=== PATIENT | male | born 1960 | race American Indian/Alaskan Native ===

== ENCOUNTER → 2020-10-09 11:20 | Outpatient (BNVA) | payer MEDICARE, MEDICAID, SELFPAY | PROVIDERS: PCP Internal Medicine Geriatric Medicine; Visit Provider Orthopaedic Surgery | DX: M75.41 Impingement syndrome of right shoulder (principal) | CPT/HCPCS: 20610; 99202; J1100 ==

== ENCOUNTER 2020-12-25 15:35 | Emergency (ER) | payer MEDICARE, MEDICAID, SELFPAY ==
--- NOTE | ~2020-12-25 | XR_ITS ---
EXAMINATION: XR ANKLE, LEFT CLINICAL INFORMATION: Fall COMPARISON: 01/29/2019 TECHNIQUE: AP, lateral, and mortise views of the left ankle. FINDINGS: There is no fracture or dislocation. The ankle mortise is congruent. No ankle joint effusion. Degenerative changes are seen at the midfoot with small osteophytes present. Heel spurs are noted. The soft tissues are unremarkable. XR/XR ankle LT min 3V IMPRESSION: No fracture or malalignment. Mild degenerative changes. Heel spurs.
--- NOTE | ~2020-12-25 | CT_ITS ---
EXAMINATION: CT ABDOMEN AND PELVIS WITHOUT CONTRAST CLINICAL INFORMATION: Right lower abdominal pain after fall COMPARISON: CT abdomen pelvis 10/03/2016 TECHNIQUE: Multidetector volumetric imaging was performed from the superior aspect of the liver through the pubic symphysis. Sagittal and coronal reformatted images were obtained on the technologist's workstation. This CT examination was performed using dose optimization techniques as appropriate, variously including the following: *Automated exposure control *Adjustment of mA and/or kV according to patient size (this includes techniques or standardized protocols for targeted exams where dose is matched to indication/reason for exam; i.e. extremities or head) *Use of iterative reconstruction technique DLP: 966 mGy-cm FINDINGS: LUNG BASES: The visualized lung bases are unremarkable. LIVER, GALLBLADDER, AND BILIARY TREE: The liver is enlarged measuring 20 cm in cephalocaudad dimension and I suspect there is hepatic steatosis. No focal liver mass or bile duct dilatation is seen. Status post cholecystectomy. PANCREAS: Unremarkable. SPLEEN: Unremarkable. ADRENAL GLANDS: Unremarkable. KIDNEYS AND URETERS: The kidneys are normal in size, shape, and attenuation. No hydronephrosis, hydroureter, or calculi seen. No perinephric stranding. BLADDER: Unremarkable. GASTROINTESTINAL TRACT: Patient has undergone a gastric sleeve procedure. The small and large bowel are unremarkable. The appendix is unremarkable. ABDOMINAL WALL: No significant hernia is appreciated. A large coarse calcification is present just above the umbilicus in the subcutaneous tissues. There is been prior pelvic wall surgery seen with a midline mesh present. LYMPH NODES: No retroperitoneal lymphadenopathy. VASCULAR: There is calcific plaque present but no aneurysm. PELVIC VISCERA: Unremarkable. OSSEOUS STRUCTURES: Degenerative changes are present in the spine. No fracture is are seen. CT/CT abdomen pelvis wo con IMPRESSION: No evidence of traumatic injury after fall. A cause for the patient's right-sided lower abdominal pain has not been found. Incidental note made of enlarged fatty liver, prior gastric sleeve, prior lower abdominal wall hernia repair with mesh and other findings described above.
[2020-12-25 15:41] VITALS: BP 144/82; PULSE 74; RESP 18; TEMP 36.1; O2SAT 95; BMI 38.5
--- NOTE | 2020-12-25 17:36 | ED.ABDPAIN ---
HPI - Abdominal Pain General Chief Complaint: Abdominal Pain Stated Complaint: Abdomial pain Time Seen by Provider: 12/25/20 17:35 Source: patient Mode of arrival: ambulatory Limitations: no limitations History of Present Illness HPI narrative: Apparently patient slipped on ice 5 days ago and strained his lower abdomen which he complaining of pain since then no direct injury to the abdomen. Patient also has some pain in the left ankle after the fall but able to ambulate. No nausea no vomiting no head injury no loss of consciousness Related Data Home Medications Medication Instructions Recorded Confirmed buprenorphine 2 mg-naloxone 0.5 mg 1 film BUCCAL DAILY 10/09/20 10/09/20 sublingual film buprenorphine 8 mg-naloxone 2 mg 20 mg SUBLINGUAL DAILY 10/09/20 10/09/20 sublingual film bupropion HCl 150 mg tablet,12 hr 150 mg PO BID 10/09/20 10/09/20 sustained-release diclofenac sodium 1 % topical gel 2 g TOPICAL TID 10/09/20 10/09/20 gabapentin 600 mg tablet 600 mg PO BID 10/09/20 10/09/20 methylprednisolone 4 mg tablets in mg PO DIRECTED 10/09/20 10/09/20 a dose pack omeprazole 40 mg capsule,delayed 40 mg PO DAILY 10/09/20 10/09/20 release Allergies Allergy/AdvReac Type Severity Reaction Status Date / Time ibuprofen [From Motrin] Allergy Severe HIVES Verified 10/09/20 12:05 adhesive tape [Adhesive Tape] Allergy Intermediate SKIN Verified 10/09/20 12:05 BLISTERS Motrin Allergy Unknown hives Uncoded 10/09/20 12:05 tape Allergy Unknown rash Uncoded 10/09/20 12:05 Review of Systems Review of Systems Constitutional : No Weight loss, No Fever, No Chills ENT/Mouth : No sore throat, No Rhinorrhea Eyes: No Eye Pain, No Swelling Cardiovascular : No Chest Pain, no palpitations Respiratory : No Cough, No Sputum, no shortness of breath Gastrointestinal : no Nausea, No Vomiting, No Diarrhea, ++ abdominal Pain, no black stools Genitourinary : No Dysuria, No Urinary Frequency Musculoskeletal : No joint pain, No Myalgias, No Joint Swelling Skin : No Skin Lesions, No rash Neuro : No Weakness, No Numbness, No Dizziness, No Headache Psych : No Anxiety/Panic, No Depression Heme/Lymph: No Bruising, No Lymphadenopathy Endocrine : No Polyuria, No Polydipsia All other systems reviewed and are negative Physical Exam Vital Signs: Vital Signs: Last Vital Signs Temp 97.0 F 12/25/20 15:41 Pulse 74 12/25/20 15:41 Resp 18 12/25/20 15:41 BP 144/82 H 12/25/20 15:41 Pulse Ox 95 12/25/20 15:41 Body Mass Index 38.5 Const: General: comfortable and no acute distress Orientation/consciousness: oriented to time and patient oriented x3 HENMT: Head: Yes normocephalic and Yes atraumatic Eyes: General: appearance normal, both eyes and all related structures Neck: Neck: Yes normal visual inspection and Yes full ROM Chest: Chest palpation & inspection: normal inspection of the chest and normal palpation of entire chest wall Resp: Effort & Inspection: normal respiratory effort Auscultation: clear to auscultation bilaterally, no crackles, no rales and no rhonchi Cardio: Jugular venous distension: no JVD Palpation: normal PMI Rate: regular rate Rhythm: regular rhythm Heart sounds: S1 normal heart sound present and S2 normal heart sound present Peripheral pulses: Peripheral pulses 2+ throughout GI: Inspection: Yes normal to inspection Palpation (GI): Soft to palpation and Tenderness to palpation present (GI) in the RLQ (Abdominal wall tenderness no bruising no hernia); with no rebound tenderness Auscultation: normal bowel sounds Back/Spine/Pelvis: Thoracic/Lumbar Spine: thoracic and lumbar spine normal to inspection Neuro: General: oriented to time and patient oriented x3 Extrem: Ankle/foot/toe images: 1. Diffuse tenderness left ankle no significant soft tissue swelling no deformity neurovascular intact MDM - Abdominal Pain MDM Narrative Medical decision making narrative: Patient's CT scan abdomen negative for any hernia or hematoma or significant muscle tear pain likely from abdominal muscle strain Discharge Plan Discharge Clinical Impression: Strain of abdominal wall Patient Disposition: Home, Self-Care Instructions: Muscle Strain (ED) Additional Instructions: Rest to abdominal wall apply ice take ibuprofen/Tylenol for pain Prescriptions: No Action omeprazole 40 mg capsule,delayed release(DR/EC) 40 mg PO DAILY RF: 0 buprenorphine-naloxone [Suboxone] 2-0.5 mg film 1 film buccal DAILY RF: 0 bupropion HCl 150 mg tablet sustained-release 12 hr 150 mg PO BID RF: 0 gabapentin 600 mg tablet 600 mg PO BID RF: 0 diclofenac sodium 1 % gel 2 g topical TID RF: 0 methylprednisolone 4 mg tablets,dose pack PO DIRECTED RF: 0 buprenorphine-naloxone 8-2 mg film 20 mg sublingual DAILY RF: 0 Interventions: ED Discharge Assessment Last Done: 12/25/20 20:57 Discharge Date/Time: 12/25/20 19:00 [facility] Past Medical History Medical History GERD (gastroesophageal reflux disease) Surgical History History of Maddy-en-Y gastric bypass Family History Family History Father Cancer Diabetes Mother Diabetes Cancer Social History Social History Smoking Status: Light tobacco smoker Advance Directives: No Advance Directives Information Provided: Yes Current occupational status: unemployed Current occupation: right handed
== END 2020-12-25 19:00 | disposition home or self-care (01) ==
PROVIDERS: Emergency Provider Internal Medicine; PCP Internal Medicine Geriatric Medicine
DX: S39.011A Strain of muscle, fascia and tendon of abdomen, initial encounter (principal); M25.572 Pain in left ankle and joints of left foot; R10.30 Lower abdominal pain, unspecified; W00.0XXA Fall on same level due to ice and snow, initial encounter; Y93.01 Activity, walking, marching and hiking; Y92.9 Unspecified place or not applicable; Y99.9 Unspecified external cause status; Z79.899 Other long term (current) drug therapy; F17.200 Nicotine dependence, unspecified, uncomplicated; Z71.6 Tobacco abuse counseling
CPT/HCPCS: 73610; 74176; 99283; 99284

== ENCOUNTER 2021-01-01 09:36 | Outpatient (REF) | payer MEDICARE, MEDICAID, SELFPAY ==
--- NOTE | ~2021-01-01 | US_ITS ---
EXAMINATION: US SOFT TISSUE OF THE NECK CLINICAL INFORMATION: Anterior neck mass times one month, shotty lymph nodes right. COMPARISON: None TECHNIQUE: Linear transducer grayscale and color Doppler examination of the right neck and upper mid neck Ia. FINDINGS: Ultrasound of palpable concern in the midline anterior superior neck. No focal mass or lymph node is identified in this region. There is a 0.8 cm (transverse measurement) lymph node in the lateral right upper neck. No adenopathy otherwise identified in the right neck. US/US soft tiss head and/or neck IMPRESSION: No mass or lymphadenopathy in the midline of the anterior superior neck, in the area of clinical concern. Subcentimeter nonspecific lymph node in the lateral right upper neck. No abnormal enlarged lymph nodes are seen in the right neck.
== END 2021-01-01 09:37 | disposition home or self-care (01) ==
LOC: HO.HMGCX 09:36
PROVIDERS: PCP General Practice; Visit Provider General Practice
DX: R22.1 Localized swelling, mass and lump, neck (principal)
CPT/HCPCS: 76536

== ENCOUNTER 2021-01-18 08:00 | Outpatient (RCR) | payer MEDICARE, MEDICAID, SELFPAY ==
--- NOTE | 2020-11-02 09:58 | MHC.PT.EP ---
[facility] [place] Office [place] Office [place] Office [address] Derrick Ambrocio [address] [phone] F: [phone] F: [phone] F: [phone] F: [phone] Physical Therapy Plan of Care Date of Evaluation: 11/02/20 Date of Surgery: n/a Diagnosis: impingement of right shoulder Assessment: This is a 60 y/o male presenting to [facility] w/ right anterior shoulder pain, indisious onset x 5 months ago. He does have a history of bilateral shoulder issues following a gastric bypass surgery in 1996 where his arms were positioned poorly for several hours. His right arm fully recovered and his left arm has mild ROM deficits but no pain. Assessment of the right shoulder reveals decreased AROM, pain with AROM, mild impaired PROM (mostly shoulder ER), weak and painful ER resisted tests, strong and painful flex/abd/IR resisted tests, impaired posture/postural awareness, tenderness to palpation, increased tissue tension, (+) Neer's and gilberto special tests, and impaired scapulohumeral joint rhythm. Due to these impairments, Pt is having difficulty: lifting, reaching overhead, pulling, pushing, washing hair/back, donning/doffing clothes, lifting, putting coffee mug in the microwave, and driving. He enjoys being outside, riding his motorcycle, and staying active. His goal is to regain full function of his right shoulder without pain. Pt will benefit from skilled PT services 2x/week for 6 weeks in order to reduce impairments and restore function. 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 -In 6 weeks, Pt to restore AROM to WNL in all impaired directions. -In 6 weeks, Pt to demonstrate I w/ HEP. -In 6 weeks, Pt to improve SPADI by at least 13 points. Treatment Plan: Modalities to reduce pain, spasms and effusion. Manual therapy to restore motion and function. Therapeutic exercise to improve strength and flexibility. Neuromuscular re-education for posture and balance. Therapeutic activities to return to functional activities of daily living. Electronically signed by: Emilia Dueñas PT, DPT Please sign and return to therapist. Thank you for your referral.
--- NOTE | 2021-02-03 08:22 | MHC.PT.DC ---
[facility] [place] Office [place] Office [place] Office [address] Derrick Ambrocio [address] [phone] F: [phone] F: [phone] F: [phone] F: [phone] Physical Therapy Discharge Report Diagnosis: impingement of right shoulder Date of Surgery: n/a Date of Evaluation: 11/02/20 Date of Discharge: 02/03/21 Treatments to Date: 18 Cancellations to Date: 2 No Shows to Date: 0 Discharge Status: Achieved Goals Improved Function Independent with HEP Discharge Summary: Pt has improved and demonstrates I w/ HEP. He would like to continue physical therapy intervention. However, he demonstrates no functional limitations and is very compliant w/ his exercises @ home. I discussed this with him and recommended he follow up with [facility] in regards to his progress. Electronically signed by: Emilia Dueñas PT, DPT Please sign and return to therapist. Thank you for your referral.
== END 2021-02-03 08:23 | disposition other institution (70) ==
LOC: HO.PT 08:00
PROVIDERS: PCP Internal Medicine Geriatric Medicine; Visit Provider Orthopaedic Surgery
DX: M75.41 Impingement syndrome of right shoulder (principal)
CPT/HCPCS: 97014; 97110; 97140; 97161; 97530

== ENCOUNTER → 2021-01-21 13:48 | Outpatient (BNVA) | payer MEDICARE, MEDICAID, SELFPAY | PROVIDERS: Visit Provider Orthopaedic Surgery | DX: M75.52 Bursitis of left shoulder (principal) | CPT/HCPCS: 99212 ==

== ENCOUNTER → 2021-03-18 11:00 | Outpatient (BNVA) | payer MEDICARE, MEDICAID, SELFPAY | PROVIDERS: PCP Internal Medicine Geriatric Medicine; Visit Provider Orthopaedic Surgery | DX: M75.100 Unspecified rotator cuff tear or rupture of unspecified shoulder, not specified as traumatic (principal) | CPT/HCPCS: 20610; 99212; J1100 ==

== ENCOUNTER 2021-03-29 12:47 | Outpatient (REF) | payer MEDICARE, MEDICAID, SELFPAY ==
--- NOTE | ~2021-03-29 | US_ITS ---
EXAMINATION: US VENOUS ULTRASOUND WITH DOPPLER LOWER EXTREMITY, LEFT CLINICAL INFORMATION: Swollen/warm left leg COMPARISON: None TECHNIQUE: Ultrasound of the deep veins is performed from the hip to the calf with compression sonography and color and pulse Doppler assessment. Spectral analysis with color-flow imaging is performed. FINDINGS: There is normal venous compression and respiratory variation and augmented flow. The visualized common femoral vein, superficial femoral vein, profunda femoral vein, popliteal vein, and the trifurcation region shows no evidence of deep venous thrombosis. There is no significant popliteal fossa cyst. There is no edema seen. If the patient's symptoms persist, followup ultrasound in 5 days 7 days might be of value to exclude proximal propagation from a non-visualized calf vein. US/US venous duplex LE LT IMPRESSION: No DVT demonstrated in the left lower extremity.
== END 2021-03-29 12:48 | disposition home or self-care (01) ==
LOC: HO.HMGCX 12:47
PROVIDERS: PCP Internal Medicine Geriatric Medicine; Visit Provider Registered Nurse Community Health
DX: M79.89 Other specified soft tissue disorders (principal)
CPT/HCPCS: 93971

== ENCOUNTER → 2021-06-07 10:12 | Outpatient (BNVA) | payer MEDICARE, MEDICAID, SELFPAY | PROVIDERS: Visit Provider Orthopaedic Surgery | DX: M75.101 Unspecified rotator cuff tear or rupture of right shoulder, not specified as traumatic (principal) | CPT/HCPCS: 20610; 99212; J1100 ==

== ENCOUNTER 2021-08-20 12:32 | Emergency (ER) | payer MEDICARE, MEDICAID, SELFPAY ==
[2021-08-20 13:02] VITALS: BP 119/60; PULSE 67; RESP 18; TEMP 36.8; O2SAT 94; BMI 39.5
--- NOTE | 2021-08-20 16:12 | ED.ABDPAIN ---
HPI - Abdominal Pain General Chief Complaint: Abdominal Pain Stated Complaint: low rt abd pain Time Seen by Provider: 08/20/21 13:17 Source: patient and old records reviewed Mode of arrival: ambulatory Limitations: no limitations History of Present Illness MD elicited complaint: abdominal pain Pertinent past history: other (hx of gastric bypas prior hernia) Onset (ago): day(s) (5) Pain Consistency: constant Location: RLQ Severity: moderate Quality: dull Radiation: none Migration to: no migration Exacerbating factors: movement Relieving factors: nothing Associated symptoms: denies other symptoms Related Data Home Medications Medication Instructions Recorded Confirmed buprenorphine 2 mg-naloxone 0.5 mg 1 film BUCCAL DAILY 10/09/20 10/09/20 sublingual film (Suboxone) buprenorphine 8 mg-naloxone 2 mg 20 mg SUBLINGUAL DAILY 10/09/20 10/09/20 sublingual film bupropion HCl 150 mg tablet,12 hr 150 mg PO BID 10/09/20 10/09/20 sustained-release diclofenac sodium 1 % topical gel 2 g TOPICAL TID 10/09/20 10/09/20 gabapentin 600 mg tablet 600 mg PO BID 10/09/20 10/09/20 methylprednisolone 4 mg tablets in mg PO DIRECTED 10/09/20 10/09/20 a dose pack omeprazole 40 mg capsule,delayed 40 mg PO DAILY 10/09/20 10/09/20 release Allergies Allergy/AdvReac Type Severity Reaction Status Date / Time ibuprofen [From Motrin] Allergy Severe HIVES Verified 08/20/21 13:02 adhesive tape [Adhesive Tape] Allergy Intermediate SKIN Verified 08/20/21 13:02 BLISTERS Motrin Allergy Unknown hives Uncoded 10/09/20 12:05 tape Allergy Unknown rash Uncoded 10/09/20 12:05 Review of Systems Review of Systems Constitutional : No Weight loss, No Fever, No Chills ENT/Mouth : No sore throat, No Rhinorrhea Eyes: No Swelling, No Redness Cardiovascular : No Chest Pain, No SOB, NoEdema Respiratory : No Cough, No Sputum, No Wheezing Gastrointestinal : no Nausea, no Vomiting, no Diarrhea, positive abdominal Pain, No Hematochezia, No Melena Genitourinary : No Dysuria, No Urinary Frequency, No Hematuria, No Urgency Musculoskeletal : No joint pain, No Myalgias, No Joint Swelling Skin : No Skin Lesions, No rash Neuro : No Weakness, No Numbness, No Dizziness, No Headache Psych : No Anxiety/Panic, No Depression Heme/Lymph: No Bruising, No Lymphadenopathy Endocrine : No Polyuria, No Polydipsia All other systems reviewed and are negative. Physical Exam Vital Signs: Vital Signs: Last Vital Signs Temp 98.3 F 08/20/21 13:02 Pulse 67 08/20/21 13:02 Resp 18 08/20/21 13:02 BP 119/60 08/20/21 13:02 Pulse Ox 94 08/20/21 13:02 Body Mass Index 39.5 Appearance: Alert. Oriented X3. No acute distress. Eyes: Pupils equal, round and reactive to light. ENT: Pharynx normal. Neck: Normal inspection. Neck supple. CVS: Normal heart rate and rhythm. Pulses normal. Respiratory: No respiratory distress. Breath sounds normal. Abdomen: Soft and obese firm area felt in RLQ - not pulsatile no overlying skin changes Skin: Skin warm and dry. Normal skin color. Normal skin turgor. Extremities: No lower extremity edema. No calf ttp Neuro: Oriented X 3. No motor deficit. No sensory deficit. Course Course Course Narrative: PATIENT ELOPED MDM - Abdominal Pain MDM Narrative Medical decision making narrative: 61 yo male with hx of multiple abd surgeries here with mass felt in RLQ and pain - no n/v/d or constipation, + flatus - denies trauma not on AC therapy - at this time labs, and CT scan for mass/hernia ordered Discharge Plan Discharge Clinical Impression: Abdominal pain Patient Disposition: Elopement Prescriptions: No Action omeprazole 40 mg capsule,delayed release(DR/EC) 40 mg PO DAILY RF: 0 buprenorphine-naloxone [Suboxone] 2-0.5 mg film 1 film buccal DAILY RF: 0 bupropion HCl 150 mg tablet sustained-release 12 hr 150 mg PO BID RF: 0 gabapentin 600 mg tablet 600 mg PO BID RF: 0 diclofenac sodium 1 % gel 2 g topical TID RF: 0 methylprednisolone 4 mg tablets,dose pack PO DIRECTED RF: 0 buprenorphine-naloxone 8-2 mg film 20 mg sublingual DAILY RF: 0 Discharge Date/Time: 08/20/21 17:21 [facility] Past Medical History Attestation statement: The following information was validated with the patient. Source: old records reviewed Medical History GERD (gastroesophageal reflux disease) Surgical History History of Maddy-en-Y gastric bypass Family History Family History Father Cancer Diabetes Mother Diabetes Cancer Social History Social History (Updated 08/20/21 @ 16:36 by Mini Núñez DO) Patient Tobacco Use Status: Tobacco use Unknown Advance Directives: No Current occupational status: unemployed Current occupation: right handed
== END 2021-08-20 17:21 | disposition left against medical advice (07) ==
PROVIDERS: Emergency Provider Emergency Medicine; PCP Internal Medicine Geriatric Medicine
DX: R10.31 Right lower quadrant pain (principal); Z79.899 Other long term (current) drug therapy
CPT/HCPCS: 96360; 99282; 99284

== ENCOUNTER 2022-01-26 09:29 | Outpatient (REF) | payer MEDICARE, MEDICAID, SELFPAY ==
[2022-01-26 11:55] LABS: Blood Urea Nitrogen 16 mg/dL (9-16); Estimated Glomerular Filt Rate > 60
== END 2022-01-26 09:30 | disposition home or self-care (01) ==
LOC: HO.LAB 09:29
PROVIDERS: PCP Internal Medicine Geriatric Medicine; Referring Provider Internal Medicine Geriatric Medicine; Visit Provider Surgery
DX: L76.82 Other postprocedural complications of skin and subcutaneous tissue (principal)
CPT/HCPCS: 36415; 82565; 84520; 99202

== ENCOUNTER → 2022-09-16 08:29 | Outpatient (REF) | payer MEDICARE, MEDICAID, SELFPAY ==
--- NOTE | 2022-09-16 08:33 | CA_ITS ---
Transthoracic Echocardiogram Patient (Last, First, Middle): Raudel Pemberton E L Gender: Male Date of : 1960 Age: 62 Procedure Date: 09/16/2022 Procedure Type: Transthoracic Echocardiogram Location: OP Height: 185.42 cm Weight: 103.87 kg BSA: 2.28 m2 Heart Rate: 66 bpm BP: 124 / 70 mmHg Suggestion Clerk: SB Referring MD: Brandan Harrison MD Symptoms: unspecified afib Study Quality: Adequate ECG Rhythm: Sinus Conclusions: - Normal left ventricular size, thickness, systolic function, and wall motion. The visually estimated ejection fraction is between 55-60%. There is no evidence of regional wall motion abnormalities. Abnormal diastolic function is noted. E/E prime ratio is >15, consistent with elevated filling pressures. - Mildly increased right ventricular cavity size. There is normal right ventricular systolic function. - The left atrium is mildly dilated. The right atrium is mildly dilated. - There is mild dilatation of the sinuses of Valsalva measuring 3.70 cm and mild dilatation of the ascending aorta measuring 3.80 cm. Findings Procedure Information Contrast agent, definity, is being given per protocol without apparent complications. Left Ventricle Normal left ventricular size, thickness, systolic function, and wall motion. The visually estimated ejection fraction is between 55-60%. There is no evidence of regional wall motion abnormalities. Abnormal diastolic function is noted. E/E prime ratio is >15, consistent with elevated filling pressures. Right Ventricle Mildly increased right ventricular cavity size. There is normal right ventricular systolic function. Atria The left atrium is mildly dilated. The right atrium is mildly dilated. Aortic Valve There is a normal trileaflet aortic valve. There is mild calcification of the aortic valve. There is no aortic valve stenosis. There is no aortic valve regurgitation. Mitral Valve The mitral valve appears normal. There is trace mitral valve regurgitation. There is no mitral valve stenosis. Pulmonic Valve The pulmonic valve is likely normal. Tricuspid Valve Normal tricuspid valve structure. There is trace tricuspid valve regurgitation. Normal right atrial pressure. There is no evidence of pulmonary hypertension. Great Vessels The pulmonary artery was not well visualized. There is mild dilatation of the sinuses of Valsalva measuring 3.70 cm and mild dilatation of the ascending aorta measuring 3.80 cm. Venous The inferior vena cava is normal in size and collapses greater than 50% with inspiration. Pericardium/Pleural There is no evidence of pericardial effusion. Prior Study Comparison Changes noted compared to prior study dated: 01/25/2018. Elevated filling pressures. Mildly increased RV size. Mild dilation of aorta. Measurements 2D Linear Measurements IVSd: 0.92 0.6-0.9/0.6-1.0 cm LVIDd: 5.82 3.9-5.3/4.2-5.9 cm LVIDd Index: 2.55 2.4-3.2/2.2-3.1 cm/m2 LVIDs: 3.95 2.0-3.6 cm LVPWd: 0.90 0.7-1.1 cm LA Diam: 4.10 2.7-3.8/3.0-4.0 cm LAIDs Index: 1.80 1.5-2.3 cm/m2 LV Mass: 258.03 67-162/88-224 g LV Mass Index: 113.17 43-95/49-115 g/m2 LVOT Diam: 2.30 3.0+(-)1.3 cm 2D Systolic Function EF 4C: 65.10 >55% EF 2C: 73.50 >55% EF BiP: 69.10 >55% Mitral Valve MV Pk E: 1.36 MV PK A: 0.55 MV Decel Time: 192.00 E/A: 2.50 E'Lateral: 7.83 E'Medial: 7.83 E/E' Med: 17.40 E/E' Lat: 17.40 PHT: 56.00 MVA PHT: 3.93 Decel Shelby: 7.09 Aortic Valve AoV Pk Remberto: 1.21 AoV Pk Grad: 6.00 CHAIM: 3.94 LVOT LVOT Pk Remberto: 1.15 LVOT Mn Remberto: 0.78 LVOT VTI: 0.26 LVOT Pk Grad: 5.00 LVOT Mn Grad: 3.00 LVOT Diam: 2.30 LVOT Area: 4.15 Diastolic Function MV Pk E: 1.36 MV Pk A: 0.55 E/A: 2.50 E'Medial: 7.83 E/E' Med: 17.40 E' Laterial: 7.83 E/E' Lat: 17.40 Right Ventricle TAPSE (mm): 30.00 TVS' Remberto: 14.70 Tricuspid Valve TR Pk Remberto: 2.42 TR Pk Grad: 23.00 RA Press: 8.00 RVSP: 31.00 Great Vessels Aorta Sinus of Valsalva: 3.70 2.0-3.5 cm Ao Asc: 3.80 2.1-3.4 cm Pulmonary Veins Pulm Vein S/D 0.70 Pulmonary Valve PV Pk Remberto: 1.02 Peak PV Grad: 4.00 Updated in Other Vendor System with Status of Final Lasha Maravilla MD electronically signed on 09/19/2022 12:52:00 PM with status of Final
== END ==
LOC: HO.CARD 08:29
PROVIDERS: PCP Internal Medicine Geriatric Medicine; Visit Provider Internal Medicine Geriatric Medicine
DX: I48.91 Unspecified atrial fibrillation (principal)
CPT/HCPCS: 93306; Q9957

== ENCOUNTER → 2023-03-17 13:02 | Outpatient (REF) | payer OTHER, MEDICAID, SELFPAY ==
--- NOTE | 2023-03-17 13:07 | HM_ITS ---
* Total monitoring time 1 day. * Underlying rhythm is sinus. Average ventricular rate 77/Min. Range 48 to 144/Min. * Rare supraventricular ectopy with minimal burden. * Extremely rare ventricular ectopy. * No sustained arrhythmias. * No significant pauses or AV blocks. * No patient markers or events in diary. MTDD
== END ==
LOC: HO.CARD 13:02
PROVIDERS: PCP Internal Medicine Geriatric Medicine; Visit Provider Internal Medicine
DX: I48.0 Paroxysmal atrial fibrillation (principal)
CPT/HCPCS: 93225

== ENCOUNTER 2023-04-18 06:02 | Emergency (ER) | payer OTHER, MEDICARE, MEDICAID, SELFPAY ==
--- NOTE | ~2023-04-18 | XR_ITS ---
EXAMINATION: XR TOES, LEFT CLINICAL INFORMATION: Pain and injury COMPARISON: Left foot 01/29/2019 TECHNIQUE: 3 views of the left toes were obtained. FINDINGS: There are no fractures or dislocations. No joint effusion is identified. No bone, joint or soft tissue abnormality is demonstrated. XR/XR toe LT min 2V IMPRESSION: Unremarkable left toe examination.
[2023-04-18 06:14] VITALS: BP 120/82; PULSE 66; RESP 18; TEMP 36.5; O2SAT 97; BMI 28.5
[2023-04-18 06:30] VITALS: BP 129/70; PULSE 65; RESP 17; TEMP 36.8; O2SAT 98
--- NOTE | 2023-04-18 06:37 | ED.GENADULT ---
HPI - General Adult General Chief complaint: Extremity Injury, Lower Stated complaint: L Toe Pain Time Seen by Provider: 04/18/23 06:37 Source: patient Mode of arrival: ambulatory Limitations: no limitations History of Present Illness HPI narrative: Patient is a 62 year old assigned male at with a history of GERD and plantar fasciitis presenting to the emergency department today with left 5th toe pain. Patient states that yesterday he was working in his yard and when he came inside, he noticed that his left 5th toe was bruised. Patient denies any known injury. 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 Patient denies any dizziness, lightheadedness, abdominal pain, nausea, vomiting, fever, chills, blurry vision, double vision, loss of vision, chest pain, difficulty breathing, shortness of breath, back pain, night sweats, pain with urination, increased urinary frequency, increased urinary urgency, blood in his urine or stool, syncope or a near syncopal episode, recent trauma or falls, bowel incontinence, bladder incontinence, bowel retention, bladder retention, or any other complaints at this time. Onset (ago): day(s) (1) Location: left and lower extremity Radiation: non-radiation Severity: mild Severity scale (1-10): 3 Quality: aching and dull Pain Consistency: constant Relieving factors: none Exacerbating factors: none Associated symptoms: denies other symptoms Treatments prior to arrival: none Related Data Home Medications Medication Instructions Recorded Confirmed buprenorphine 2 mg-naloxone 0.5 mg 1 film buccal DAILY 10/09/20 01/26/22 sublingual film (Suboxone) buprenorphine 8 mg-naloxone 2 mg 20 mg sublingual DAILY 10/09/20 01/26/22 sublingual film bupropion HCl 150 mg tablet,12 hr 150 mg PO BID 10/09/20 01/26/22 sustained-release diclofenac sodium 1 % topical gel 2 g topical TID 10/09/20 01/26/22 gabapentin 600 mg tablet 600 mg PO BID 10/09/20 01/26/22 methylprednisolone 4 mg tablets in mg PO DIRECTED 10/09/20 01/26/22 a dose pack omeprazole 40 mg capsule,delayed 40 mg PO DAILY 10/09/20 01/26/22 release bupropion HCl 150 mg 24 hr tablet, 150 mg PO QAM 01/26/22 01/26/22 extended release clindamycin phosphate 1 % topical 1 appl topical BID 01/26/22 01/26/22 solution cyclobenzaprine 5 mg tablet 10 mg PO TID 01/26/22 01/26/22 diclofenac sodium 1 % topical gel 2 g topical QID 01/26/22 01/26/22 (Voltaren Arthritis Pain) fluticasone propionate 50 1 spray intranasal DAILY 01/26/22 01/26/22 mcg/actuation nasal spray,suspension furosemide 20 mg tablet 20 mg PO DAILY 01/26/22 01/26/22 gabapentin 400 mg tablet 400 mg PO BEDTIME 01/26/22 01/26/22 gabapentin 800 mg tablet 800 mg PO TID 01/26/22 01/26/22 lancets 28 gauge (FreeStyle 01/26/22 01/26/22 Lancets) meclizine 25 mg tablet 25 mg PO TID 01/26/22 01/26/22 omeprazole 40 mg capsule,delayed 40 mg PO DAILY 01/26/22 01/26/22 release ondansetron HCl 4 mg tablet 4 mg PO Q6H 01/26/22 01/26/22 polyethylene glycol 3350 17 17 g PO DAILY 01/26/22 01/26/22 gram/dose oral powder (Miralax) thiamine HCl (vitamin B1) 100 mg 100 mg PO DAILY 01/26/22 01/26/22 tablet Previous Rx's Medication Instructions Recorded cephalexin 500 mg capsule 500 mg PO QID 10 days #40 caps 01/07/23 Allergies Allergy/AdvReac Type Severity Reaction Status Date / Time ibuprofen [From Motrin] Allergy Severe HIVES Verified 01/07/23 14:43 adhesive tape [Adhesive Tape] Allergy Intermediate SKIN Verified 01/07/23 14:43 BLISTERS Motrin Allergy Unknown hives Uncoded 01/07/23 14:43 tape Allergy Unknown rash Uncoded 01/07/23 14:43 Review of Systems Constitutional: Constitutional: Reports no additional constitutional complaints, Denies chills, Denies fever(s) and Denies night sweats Eyes: Eyes: Reports no additional eye complaints, Denies blurry vision, Denies change in vision, Denies diplopia, Denies eye discharge, Denies loss of vision and Denies eye pain ENT: Denies dizziness Cardiovascular: Cardiovascular: Reports no additional cardiovascular complaints, Denies chest pain, Denies lightheadedness, Denies Loss of Consciousness and Denies dyspnea Respiratory: Respiratory: Reports no additional respiratory complaints and Denies dyspnea Gastrointestinal: Gastrointestinal: Reports no additional gastrointestinal complaints, Denies abdominal pain, Denies melena, Denies hematochezia, Denies change in bowel habits and Denies change in stool character Genitourinary: Genitourinary: Reports no additional male genitourinary complaints, Denies hematuria, Denies oliguria, Denies difficulty urinating, Denies dysuria, Denies urinary frequency, Denies urinary hesitancy, Denies urinary incontinence and Denies urinary urgency Musculoskeletal: Musculoskeletal: Reports no additional musculoskeletal complaints, Denies numbness and Denies tingling Comments: left 5th toe pain and bruising Neurologic: Denies dizziness, Denies loss of vision, Denies numbness and Denies tingling Psychiatric: Psychiatric: Reports no additional psychiatric complaints Endocrine: Endocrine: Reports no additional endocrine complaints Hematologic/Lymphatic: Hematologic/Lymphatic: Reports no additional hematologic/lymphatic complaints Allergic/Immunologic: Allergic/Immunologic: Reports no additional allergic/immunologic complaints PMFSH Past Medical History Attestation statement: The following information was validated with the patient. Source: old records reviewed and nursing notes reviewed Medical History GERD (gastroesophageal reflux disease) Incisional pain Surgical History History of Maddy-en-Y gastric bypass Family History Family History Father Cancer Diabetes Mother Diabetes Cancer Social History Social History Patient Tobacco Use Status: Tobacco use Unknown Advance Directives: No Advance Directives Information Provided: Yes Current occupational status: unemployed Current occupation: right handed Physical Exam ED Vital Signs: Vital Signs - 24 hr 04/18/23 06:14 04/18/23 06:30 Temperature 97.7 F 98.2 F Pulse Rate 66 65 Respiratory Rate 18 17 Blood Pressure 120/82 129/70 Pulse Oximetry 97 98 Oxygen Delivery Method Room Air Room Air BMI result Body Mass Index 28.5 Const General: cooperative, no acute distress, alert and awake Nutritional Appearance: well nourished Orientation/consciousness: patient oriented x3 Limitations: no limitations HENMT Head: Yes normal to inspection and Yes atraumatic Ears: hearing grossly normal bilaterally and external ears normal General nose exam: Normal external nose present, no nasal discharge noted and no epistaxis Face and sinus: Yes normal facial exam, No abrasion and No laceration Mouth: Normal oral and palatal mucosa present, no drooling and no muffled voice Eyes General: appearance normal, both eyes and all related structures Periorbital: periorbital findings normal Eyelids: Yes eyelids normal Conjunctivae: conjunctivae normal Pupils: Equal, round and reactive pupils present EOM: EOMs intact bilaterally Neck Neck: Yes normal visual inspection, Yes full ROM and Yes no lymphadenopathy Chest Chest palpation & inspection: normal inspection of the chest Resp Effort & Inspection: normal respiratory effort and able to speak in complete sentences GI Inspection: Yes normal to inspection Neuro General: patient oriented x3 and moves all extremities Cranial nerves: Yes Equal, round and reactive pupils present Cognition (Neuro): normal cognition Motor exam (neuro): 5/5 motor strength present throughout Sensory Exam: Normal double simultaneous stimulation for sensation Coordination: [id number] test normal Extrem Other: minimal bruising present to the dorsal and lateral aspects of the left 5th toe, PMS intact General: Yes full ROM and Yes capillary refill normal Psych Appearance: grossly normal Mental Status: mental status grossly normal Affect: normal affect Attitude: cooperative Thought process: Normal thought process present Thought content: Normal thought content present Insight: Good insight present (Psych) Procedures Orthopedic Splinting/Casting Injury #1: Side: left Lower Extremity Injury Location: foot Lower Extremity Immobilizer: post-op shoe Medical Decision Making Medical Decision Making MDM Narrative: Patient is a 62 year old assigned male at with a history of GERD presenting to the emergency department today with left 5th toe pain. Patient's physical exam was as noted in the physical exam portion of this chart. Patient's left toes x-ray was read as no acute process. However, when examining the images myself, I noted a possible avulsion fracture along the lateral aspect of the 5th toe. Given the bruising, pain, and my suspicion of the imaging, patient was placed in a post-op shoe. Patient's ROM and PMS was intact prior to and after post-op shoe placement. I explained my physical exam findings as well as all test results to the patient. I answered all questions asked by the patient. I stressed the importance of the patient taking his medication as prescribed. I stressed the importance of the patient following up with his primary care provider and an orthopedic provider. 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 I stressed the importance of the patient returning to the emergency department immediately if his symptoms were to worsen or if he were to develop any dizziness, shortness of breath, difficulty breathing, chest pain, blurry vision, loss of vision, nausea, vomiting, abdominal pain, fever, chills, back pain, or any other complaints. Patient verbalized agreement and understanding with this treatment plan and discharge. Differential Diagnosis Differential Diagnoses: The differential diagnosis associated with the presentation includes toe injury, toe fracture, toe pain Independent Interpretation I performed an independent interpretation of an: Plain X-Ray Interpretation: My interpretation is further explained in the MDM portion of this chart. EXAMINATION: XR TOES, LEFT CLINICAL INFORMATION: Pain and injury COMPARISON: Left foot 01/29/2019 TECHNIQUE: 3 views of the left toes were obtained. FINDINGS: There are no fractures or dislocations. No joint effusion is identified. No bone, joint or soft tissue abnormality is demonstrated. XR/XR toe LT min 2V IMPRESSION: Unremarkable left toe examination. Dictated By: Christ Carrasco MD Signed By: Electronically signed by Christ Carrasco MD 04/18/23 0713 Discharge Plan Discharge Clinical Impression: Injury of toe Patient Disposition: Home, Self-Care Instructions: Toe Fracture (ED) Additional Instructions: Follow up with your primary care provider and an orthopedic provider (or your pleating supervisor). Return to the emergency department immediately if your symptoms worsen or if you develop any dizziness, shortness of breath, difficulty breathing, chest pain, blurry vision, loss of vision, nausea, vomiting, abdominal pain, fever, chills, back pain, or any other complaints. Prescriptions: No Action cephalexin 500 mg capsule 500 mg PO QID 10 Days Qty: 40 0RF omeprazole 40 mg capsule,delayed release(DR/EC) 40 mg PO DAILY buprenorphine-naloxone [Suboxone] 2-0.5 mg film 1 film buccal DAILY Rx Instructions: place 1 strip/tab under (each) side of tongue bupropion HCl 150 mg tablet sustained-release 12 hr 150 mg PO BID gabapentin 600 mg tablet 600 mg PO BID diclofenac sodium 1 % gel 2 g topical TID methylprednisolone 4 mg tablets,dose pack PO DIRECTED buprenorphine-naloxone 8-2 mg film 20 mg sublingual DAILY fluticasone propionate 50 mcg/actuation spray,suspension 1 spray intranasal DAILY Rx Instructions: administer into each nostril thiamine HCl (vitamin B1) 100 mg tablet 100 mg PO DAILY (DME) lancets [FreeStyle Lancets] 28 gauge [facility] See Rx Instructions .Route Rx Instructions: As directed meclizine 25 mg tablet 25 mg PO TID ondansetron HCl 4 mg tablet 4 mg PO Q6H furosemide 20 mg tablet 20 mg PO DAILY cyclobenzaprine 5 mg tablet 10 mg PO TID polyethylene glycol 3350 [Miralax] 17 gram/dose powder 17 g PO DAILY diclofenac sodium [Voltaren Arthritis Pain] 1 % gel 2 g topical QID Rx Instructions: apply to single elbow, wrist or hand; for hand includes palm/fingers/back of hand gabapentin 800 mg tablet 800 mg PO TID gabapentin 400 mg tablet 400 mg PO BEDTIME omeprazole 40 mg capsule,delayed release(DR/EC) 40 mg PO DAILY bupropion HCl 150 mg tablet extended release 24 hr 150 mg PO QAM clindamycin phosphate 1 % solution 1 appl topical BID Referrals: [facility] [place] [facility] [Provider Group] (Call to establish and follow up with an orthopedic provider. ) Name,MD Brandan [Primary Care Provider] - Print Language: [place]
--- NOTE | 2023-04-18 07:33 | PC.NURSE ---
Initial contact with pt. post op shoe applied. pt encouraged to follow up with field marketing coordinator or orthopedist. amb to ext in shoe.
== END 2023-04-18 07:34 | disposition home or self-care (01) ==
PROVIDERS: Emergency Provider Internal Medicine; PCP Internal Medicine Geriatric Medicine
DX: S99.922A Unspecified injury of left foot, initial encounter (principal); X58.XXXA Exposure to other specified factors, initial encounter; Y93.9 Activity, unspecified; Y92.007 Garden or yard of unspecified non-institutional (private) residence as the place of occurrence of the external cause; Y99.9 Unspecified external cause status; Z79.899 Other long term (current) drug therapy; Z98.84 Bariatric surgery status
CPT/HCPCS: 29515; 73660; 99283

== ENCOUNTER 2023-05-29 13:49 | Outpatient (AMB) | payer OTHER, MEDICAID, SELFPAY ==
--- NOTE | 2023-05-29 13:52 | A.OFFVIS_ITS ---
Intake Vital Signs 05/29/23 13:57 Height 6 ft 2 in Weight 230 lb BMI 29.5 BP 122/59 L Blood Pressure Location Rt brachial Position Sitting Pulse 64 Intake Visit Reasons: Intussusception Intake Note: Patient referred for intussusception. Had abd CT scan 1wk ago. C/o pain on abd since 1996 after gastrointerstinal bypass. Automotive Drivability Technician Required: No Accompanied by: Self / Same As Patient Allergies ibuprofen [From Motrin] Allergy (Severe, Verified 05/29/23 13:59) HIVES adhesive tape [Adhesive Tape] Allergy (Intermediate, Verified 05/29/23 13:59) SKIN BLISTERS Motrin Allergy (Unknown, Uncoded 05/29/23 13:59) hives tape Allergy (Unknown, Uncoded 05/29/23 13:59) rash HPI HPI Comments History of Present Illness Details Patient presents here for unclear reasons. He himself is not having any specific abdominal or groin complaints or pains. Referring physician note says evaluate for left inguinal hernia. Patient has not noticed any bulge or swelling in either groin. He did do heavy lifting in his youth but has not done so lately. Chart was reviewed patient evaluated. Multiple abdominal surgeries. [facility] Medical History GERD (gastroesophageal reflux disease) Incisional pain Surgical History History of Maddy-en-Y gastric bypass Family History Father Cancer Diabetes Mother Diabetes Cancer Social History (Updated 05/29/23 @ 14:03 by SEBASTIAN Rosales) Alcohol intake: never Patient Tobacco Use Status: Tobacco use Unknown Tobacco use type: Cigar Cigarettes Per Day: 10 Current occupational status: unemployed Current occupation: right handed Physical Exam Vital Signs: Last Vital Signs Pulse 64 05/29/23 13:57 BP 122/59 L 05/29/23 13:57 BMI result Body Mass Index 29.5 GI Other: Patient was examined both supine and standing with Valsalva. Bilateral groin exam negative. Genitalia within normal limits. Abdomen soft. Midline scar with small infraumbilical reducible incisional hernia which according to the patient is not symptomatic. Assessment & Plan Assessment & Plan (1) Incisional pain: Code(s): L76.82 - Other postprocedural complications of skin and subcutaneous tissue Plan On today's exam, no obvious hernias were demonstrated. Patient also has no groin complaints. Patient is scheduled to see his medical physician this Monday. Patient's small incisional hernia will be treated conservatively. He has had a plethora of abdominal surgeries and unless this becomes symptomatic or largest, my recommendation is to treat this conservatively. If there are any other surgical issues which developed , patient instructed to call the office and will be seen in follow-up. He will otherwise follow up p.r.n. Coding Level of Care Code New Pt Level 3 (55415) Diagnoses Incisional pain L76.82
[2023-05-29 13:57] VITALS: BP 122/59; PULSE 64; BMI 29.5
== END 2023-05-29 14:37 | disposition home or self-care (01) ==
PROVIDERS: PCP Internal Medicine Geriatric Medicine; Visit Provider Surgery
DX: L76.82 Other postprocedural complications of skin and subcutaneous tissue (principal)
CPT/HCPCS: 99203

== ENCOUNTER → 2023-05-29 13:49 | Outpatient (BNVA) | payer OTHER, MEDICARE, MEDICAID, SELFPAY | PROVIDERS: PCP Internal Medicine Geriatric Medicine; Visit Provider Surgery | DX: L76.82 Other postprocedural complications of skin and subcutaneous tissue (principal) | CPT/HCPCS: 99202 ==

== ENCOUNTER 2023-10-16 13:29 | Outpatient (AMB) | payer OTHER, MEDICAID, SELFPAY ==
--- NOTE | 2023-10-16 13:35 | MHC.OFFWIV ---
Intake Vital Signs 10/16/23 13:57 Height 6 ft 2 in Weight 240 lb BMI 30.8 BP 122/62 Blood Pressure Location Rt brachial Position Sitting Pulse 63 Pulse Source Pulse Oximeter Temp 98.2 F Temp Source Oral Pulse Oximetry (%) 95 Oxygen Delivery Method Room Air Intake Visit Reasons: EP Diarrhea 1 week (Masked) Intake Note: pt is here for c/o diarrhea 1x week, keep getting worse 8-10 times a day Patient Tobacco Use Status: Tobacco use Unknown Allergies ibuprofen [From Motrin] Allergy (Severe, Verified 10/16/23 13:58) HIVES adhesive tape [Adhesive Tape] Allergy (Intermediate, Verified 10/16/23 13:58) SKIN BLISTERS Motrin Allergy (Unknown, Uncoded 05/29/23 13:59) hives tape Allergy (Unknown, Uncoded 05/29/23 13:59) rash Do you need a note to return to daycare/school/sports/work: Yes HPI EP Diarrhea 1 week (Masked) HPI Details This is a 63 year old male patient who presents today with a 1 week history of watery diarrhea. He reports 8-10 stools per day, if not more. He denies any abdominal pain, fever, or chills. Denies any recent travel, exposure to sick contacts, or any exposure to new foods or medications. He denies any blood or mucus in his stool. Tolerating food and drink. Denies nausea or vomiting. States he has had some dizziness lately. Denies any LOC, denies any chest pain, palpitations, or shortness of breath. Denies urinary problems. Has been trying to stay hydrated with water and electrolyte drinks. COUNT INCLUDES THE [facility] Medical History Incisional pain GERD (gastroesophageal reflux disease) Surgical History History of Maddy-en-Y gastric bypass Family History Father Cancer Diabetes Mother Diabetes Cancer Social History Alcohol intake: never Patient Tobacco Use Status: Tobacco use Unknown Tobacco use type: Cigar Cigarettes Per Day: 10 Current occupational status: unemployed Current occupation: right handed Review of Systems Const All systems reviewed & are unremarkable except as noted in HPI and below Physical Exam Vital Signs: Last Vital Signs Temp 98.2 F 10/16/23 13:57 Pulse 63 10/16/23 13:57 BP 122/62 10/16/23 13:57 Pulse Ox 95 10/16/23 13:57 Oxygen Delivery Method Room Air 10/16/23 13:57 BMI result Body Mass Index 30.8 Const General: cooperative, healthy appearing and no acute distress HEENT Head: Yes normal to inspection Neck Neck: Yes no lymphadenopathy and Yes no JVD Resp Effort & Inspection: normal respiratory effort and able to speak in complete sentences Auscultation: clear to auscultation bilaterally Cardio Jugular venous distension: no JVD Palpation: normal PMI Rate: regular rate Rhythm: regular rhythm GI Other: nontender Inspection: Yes normal to inspection Palpation (GI): Soft to palpation and No hepatosplenomegaly present Auscultation: Hyperactive bowel sounds present Skin General skin exam: no rashes or lesions noted Extrem General: Yes capillary refill normal and Yes no clubbing, cyanosis or edema Psych Appearance: grossly normal Mental Status: mental status grossly normal Speech and movement: Normal speech and movement present Assessment & Plan Assessment & Plan (1) Watery diarrhea: Code(s): R19.7 - Diarrhea, unspecified Plan: Patient with 1 week history diarrhea, up to 10 times per day. Unremarkable history and exam at this time. His vitals remain stable however patient reports intermittent dizziness. We discussed possible evaluation in the emergency department, however at this time he declines. I have ordered a GI panel and C-diff however he wishes to take kit home to obtain stool sample there. Instructions on collection were provided to patient. I will start him on Loperamide. We discussed indications, use, possible s/e of this. We reviewed at length the necessity in ED evaluation/treatment should these symptoms persist despite treatment, or if he develops any stool that appears to have blood/mucus, if he develops any abdominal pain, fever, chills, or ongoing/worsening dizziness. He verbalizes understanding and agrees to plan. Orders: Orders GI Panel Today R19.7 - Diarrhea, unspecified CDiff Gene PCR Today R19.7 - Diarrhea, unspecified Medications: New loperamide take 2 tabs (4mg) initially, followed by 2 mg after each loose stool; maximum: 16 mg/day. Do not exceed use after 2 days. 2 mg PO Q6H 2 days PRN 14 caps 0RF loose stool Coding Level of Care Code Est Pt Level 3 (32674) Diagnoses Watery diarrhea R19.7
[2023-10-16 13:57] VITALS: BP 122/62; PULSE 63; TEMP 36.8; O2SAT 95; BMI 30.8
== END 2023-10-16 14:43 | disposition home or self-care (01) ==
PROVIDERS: PCP Internal Medicine Geriatric Medicine; Visit Provider Nurse Practitioner Family
DX: R19.7 Diarrhea, unspecified (principal)
CPT/HCPCS: 99213

== ENCOUNTER 2024-01-29 08:21 | Day surgery (SDC) | payer OTHER, MEDICAID, SELFPAY ==
[2023-10-27 11:12] VITALS: BMI 31.2
--- NOTE | 2024-01-26 09:25 | P.CONAN_ITS ---
Documented by User: Angella Everett NP 01/26/24 09:26 HPI - Anesthesia Eval Consult details Narrative: 63yo M for Colonoscopy Hx facial trauma with reconstruction Suboxone daily PMFSH Active Problems Active Problems: All Active Problems (Updated 10/27/23 @ 11:18 by Steffany Hubbard RN) Incisional pain (Acute) Past Medical History Medical History Diarrhea Intussusception Hx of trauma LORENZO (obstructive sleep apnea) Hx of substance abuse History of alcohol abuse Hx of hepatitis C Incisional pain GERD (gastroesophageal reflux disease) Family History Family History Father Cancer Diabetes Mother Diabetes Cancer Surgical History Surgical History Hx of foot surgery Hx of repair of right rotator cuff History of axillary surgery Hx of knee surgery History of excision of lesion History of esophagogastroduodenoscopy (EGD) Hx of colonoscopy History of Maddy-en-Y gastric bypass Social History Social History Alcohol intake: never Patient Tobacco Use Status: Current someday Tobacco user Tobacco use type: Cigar Cigarettes Per Day: 10 Use of substances other than those prescribed or required for medical reasons: Yes Are you DNR?: No Advance Directives: No Advance Directives Information Provided: Yes Current occupational status: unemployed Current occupation: right handed Meds Allergies Allergy/AdvReac Type Severity Reaction Status Date / Time ibuprofen [From Motrin] Allergy Severe HIVES Verified 01/29/24 08:40 adhesive tape [Adhesive Tape] Allergy Intermediate SKIN Verified 01/29/24 08:40 BLISTERS Home Medications Medication Instructions Recorded Confirmed Last Taken Type buprenorphine 8 mg-naloxone 2 mg 20 mg sublingual DAILY 10/09/20 10/27/23 Unknown History sublingual film gabapentin 800 mg tablet 800 mg PO TID 01/26/22 01/29/24 Unknown History lancets 28 gauge (FreeStyle 01/26/22 01/26/22 Unknown History Lancets) omeprazole 40 mg capsule,delayed 40 mg PO DAILY 03/23/22 12/22/23 Unknown Histor y release docusate sodium 100 mg capsule 100 mg PO DAILY PRN Constipation 10/27/23 10/27/23 Unknown History (Colace) multivitamin 1 tab PO DAILY 10/27/23 10/27/23 Unknown History Exam Height,Weight and Vital Signs: Height 6 ft 1.5 in Weight 108.862 kg Assessment and Plan Assessment Anesthesia Assessment: Chart Reviewed Documented by User: Yael Agrawal MD 01/29/24 09:10 PMFSH Past Medical History Medical History Diarrhea Intussusception Hx of trauma LORENZO (obstructive sleep apnea) Hx of substance abuse History of alcohol abuse Hx of hepatitis C Incisional pain GERD (gastroesophageal reflux disease) Family History Family History Father Cancer Diabetes Mother Diabetes Cancer Family history of problems with anesthesia: No Surgical History Surgical History Hx of foot surgery Hx of repair of right rotator cuff History of axillary surgery Hx of knee surgery History of excision of lesion History of esophagogastroduodenoscopy (EGD) Hx of colonoscopy History of Maddy-en-Y gastric bypass History of Problems with Anesthesia: No Social History Social History Alcohol intake: never Patient Tobacco Use Status: Current someday Tobacco user Tobacco use type: Cigar Cigarettes Per Day: 10 Use of substances other than those prescribed or required for medical reasons: Yes Are you DNR?: No Advance Directives: No Advance Directives Information Provided: Yes Current occupational status: unemployed Current occupation: right handed Meds Allergies Allergy/AdvReac Type Severity Reaction Status Date / Time ibuprofen [From Motrin] Allergy Severe HIVES Verified 01/29/24 08:40 adhesive tape [Adhesive Tape] Allergy Intermediate SKIN Verified 01/29/24 08:40 BLISTERS Home Medications Medication Instructions Recorded Confirmed Last Taken Type buprenorphine 8 mg-naloxone 2 mg 20 mg sublingual DAILY 10/09/20 10/27/23 Unknown History sublingual film gabapentin 800 mg tablet 800 mg PO TID 01/26/22 01/29/24 Unknown History lancets 28 gauge (FreeStyle 01/26/22 01/26/22 Unknown History Lancets) omeprazole 40 mg capsule,delayed 40 mg PO DAILY 01/26/22 10/27/23 Unknown History release docusate sodium 100 mg capsule 100 mg PO DAILY PRN Constipation 10/27/23 10/27/23 Unknown History (Colace) multivitamin 1 tab PO DAILY 10/27/23 10/27/23 Unknown History Exam Airway Mallampati Class: II TM Dist: >3cm Neck ROM: Limited Heart: rrr Lungs: cta Assessment and Plan Assessment Anesthesia Assessment: Anesthesia Plan Discussed Final Anesthetic Review Family History of Problems with Anesthesia: No History of Problems with Anesthesia: No NPO: Yes ASA Class: III (etoh, cigarette and pot use) Final Preanesthetic Review: No Changes in Pt Med Stat, Meds/Allgs Chart Reviewed, Consent Obtained/Reviewed and Anes Risks/Benef Reviewed Patient Risk: Intermediate Procedure Risk: Low Anesthetic Plan Anesthetic Plan: MAC: Disposition: Standard PACU
[2024-01-29 09:03] VITALS: BP 156/69; PULSE 58; RESP 18; TEMP 36.6; O2SAT 95
[2024-01-29] MEDS: Lactated Ringers 1,000 ML 100 ML IVCONT (09:15)
[2024-01-29 10:45] VITALS: BP 150/70; PULSE 73; RESP 16; TEMP 36.6; O2SAT 100
--- NOTE | 2024-01-29 10:45 | PM.OP ---
Brief Operative Note Date of Service: 01/29/24 Pre-op diagnosis: Screening Post-op diagnosis: other (Colon polyps) Procedure: Colonoscopy to the and TI with hot snare polypectomy x 2 Surgeon: Aldair Waters MD Anesthesia: MAC Was an Table Games Manager used for this Procedure?: No Estimated blood loss (mL): 0 Pathology: other (A. Colon polyps) Condition: stable Disposition: PACU
[2024-01-29 11:00] VITALS: BP 150/84; PULSE 70; RESP 16; TEMP 36.8; O2SAT 96
--- NOTE | 2024-01-29 11:41 | OP_ITS ---
DATE OF SERVICE: 01/29/2024 SURGEON: Aldair Waters MD INDICATIONS: The patient presents for evaluation of colorectal cancer screening. Full consent has been obtained from him for this, including risks of bleeding and perforation. PREOPERATIVE DIAGNOSIS: Colorectal cancer screening. POSTOPERATIVE DIAGNOSIS: PROCEDURE PERFORMED: Colonoscopy to the cecum and terminal ileum with hot snare polypectomy x2. ESTIMATED BLOOD LOSS: COMPLICATIONS: ANESTHESIA: Monitored anesthesia care. ASSISTANTS: SPECIMENS: POSTOPERATIVE DIAGNOSES: Colorectal cancer screening, colon polyps, diverticulosis, and internal hemorrhoids. DESCRIPTION OF PROCEDURE: The patient was placed in the left lateral decubitus position. The digital rectal exam revealed no abnormalities. The Olympus video pediatric colonoscope was entered into the rectum and advanced easily to the cecum. Once in the cecum, I did identify normal-appearing cecal pouch with appendiceal orifice and a normal-appearing ileocecal valve. The terminal ileum was cannulated and appeared normal. The scope withdrawn back in the colon. The entire cecum and ileocecal valve appeared normal. The scope was then slowly withdrawn assessing all mucosal surfaces carefully. Preparation was excellent. In the transverse colon were 2 polyps. One was approximately 5 mm in diameter and was removed by hot snare polypectomy. The other polyp was approximately 10 mm in diameter and was removed by hot snare polypectomy as well. Both polypectomy sites appeared clean, without any sign of residual polyp nor bleeding. Both polyps were recovered by suction. I did not visualize any other polyps, colitis, nor angiodysplasia. There was a mild amount of sigmoid diverticulosis. In the rectum, scope was retroflexed visualizing internal hemorrhoids, but no other pathology. The rectal mucosa appeared normal. The scope was straightened and withdrawn from the patient. He tolerated the procedure well and was returned to the recovery area in stable condition. IMPRESSION: 1. Colon polyps. 2. Diverticulosis. 3. Internal hemorrhoids. PLAN: The results of the pathology will be checked. If these are adenomas, I would recommend a followup coloscopy in 5 years. He was advised not to use any aspirin or NSAIDs for least 1 week, but actually does not use them long-term anyway due to his previous history of upper GI bleeding. He would otherwise see me on a p.r.n. basis. This has been discussed with his . MD CAROL Chavez/ANGELICA / [phone] RENETTA
== END 2024-01-29 11:05 | disposition home or self-care (01) ==
PROVIDERS: PCP Internal Medicine Geriatric Medicine; Visit Provider Internal Medicine
PROC: 0DJD8ZZ Inspection of Lower Intestinal Tract, Via Natural or Artificial Opening Endoscopic (ICD-10-PCS; CPT 45378; principal; 2024-01-29 10:10)
DX: Z12.11 Encounter for screening for malignant neoplasm of colon (principal); D12.3 Benign neoplasm of transverse colon; K57.30 Diverticulosis of large intestine without perforation or abscess without bleeding; K64.8 Other hemorrhoids; K21.9 Gastro-esophageal reflux disease without esophagitis; G47.33 Obstructive sleep apnea (adult) (pediatric); Z79.899 Other long term (current) drug therapy; F10.11 Alcohol abuse, in remission; F19.11 Other psychoactive substance abuse, in remission; Z98.84 Bariatric surgery status; Z98.890 Other specified postprocedural states; F17.210 Nicotine dependence, cigarettes, uncomplicated
CPT/HCPCS: 45385; 88305; J2704

== ENCOUNTER 2024-03-05 09:09 | Outpatient (REF) | payer OTHER, MEDICAID, SELFPAY ==
[2024-03-05 09:52] LABS: Estimated Average Glucose 105 mg/dL; Hemoglobin A1c % 5.3 % (<6.0)
[2024-03-05 10:25] LABS: Alanine Aminotransferase 14 U/L (0-40); Alkaline Phosphatase 103 U/L (39-117); Anion Gap 12 (12-20); Aspartate Amino Transferase 21 U/L (5-37); Bilirubin Total 0.3 mg/dL (0.0-1.0); Blood Urea Nitrogen 14 mg/dL (9-16); Calcium 9.1 mg/dL (8.4-10.2); Carbon Dioxide 30 mmol/L (22-29); Chloride 102 mmol/L (96-108); Cholesterol 173 mg/dL (<200); Estimated Glomerular Filt Rate > 60; Glucose Random 95 mg/dL (60-115); HDL Cholesterol 50 mg/dL (>40); LDL Cholesterol Calculated 113 mg/dL (<100); Potassium 4.3 mmol/L (3.3-5.1); Sodium 140 mmol/L (135-145); Total Protein 7.2 g/dL (6.5-8.0); Triglycerides 52 mg/dL (<150)
== END 2024-03-05 09:10 | disposition home or self-care (01) ==
LOC: HO.LAB 09:09
PROVIDERS: PCP Internal Medicine Geriatric Medicine; Visit Provider Internal Medicine Geriatric Medicine
DX: R63.5 Abnormal weight gain (principal)
CPT/HCPCS: 36415; 80053; 80061; 83036

== ENCOUNTER 2024-04-12 12:52 | Outpatient (AMB) | payer OTHER, MEDICAID, SELFPAY ==
--- NOTE | 2024-04-12 13:32 | MHC.OFFWIV ---
Intake Vital Signs 04/12/24 13:33 Height 6 ft 1.5 in Weight 273 lb BMI 35.5 BP 130/70 Blood Pressure Location Lt brachial Position Sitting Pulse 60 Pulse Source Pulse Oximeter Temp 97.8 F Temp Source Temporal Artery Scan Pulse Oximetry (%) 96 Oxygen Delivery Method Room Air Intake Visit Reasons: EP RT eye concerns Intake Note: pt is here today for rt eye concern started yesterday Patient Tobacco Use Status: Current someday Tobacco user Allergies ibuprofen [From Motrin] Allergy (Severe, Verified 04/12/24 13:40) HIVES adhesive tape [Adhesive Tape] Allergy (Intermediate, Verified 04/12/24 13:40) SKIN BLISTERS Do you need a note to return to daycare/school/sports/work: No HPI HPI Comments History of Present Illness Details Patient is a 63-year-old male who was complaining of itchy eye times 7 days, last night, he pulled down his right eyelid and noticed a bump and he is concerned. He denies any changes in his vision, pain or fevers. He has not tried any medications or anything else to try to make it feel better. Nothing seems to make it worse. [facility] Medical History Diarrhea Intussusception Hx of trauma LORENZO (obstructive sleep apnea) Hx of substance abuse History of alcohol abuse Hx of hepatitis C Incisional pain GERD (gastroesophageal reflux disease) Surgical History Hx of foot surgery Hx of repair of right rotator cuff History of axillary surgery Hx of knee surgery History of excision of lesion History of esophagogastroduodenoscopy (EGD) Hx of colonoscopy History of Maddy-en-Y gastric bypass Family History Father Cancer Diabetes Mother Diabetes Cancer Social History Alcohol intake: never Patient Tobacco Use Status: Current someday Tobacco user Tobacco use type: Cigar Cigarettes Per Day: 10 Current occupational status: unemployed Current occupation: right handed Review of Systems Const All systems reviewed & are unremarkable except as noted in HPI and below Physical Exam Vital Signs: Last Vital Signs Temp 97.8 F 04/12/24 13:33 Pulse 60 04/12/24 13:33 BP 130/70 04/12/24 13:33 Pulse Ox 96 04/12/24 13:33 Oxygen Delivery Method Room Air 04/12/24 13:33 BMI result Body Mass Index 35.5 Const General: cooperative, healthy appearing, comfortable, no acute distress and well developed Orientation/consciousness: patient oriented x3 Limitations: no limitations HEENT Head: Yes normal to inspection Eyes Alignment and Position: alignment normal Periorbital: periorbital findings normal Eyelids: Yes eyelid abnormality (right lower lid has inner stye) Conjunctivae: conjunctivae normal Neck Neck: Yes normal visual inspection and Yes full ROM Skin General skin exam: no rashes or lesions noted Neuro General: patient oriented x3 Extrem General: Yes normal to inspection Assessment & Plan Assessment & Plan (1) Hordeolum externum right lower eyelid: Code(s): H00.012 - Hordeolum externum right lower eyelid Plan: Recommended warm compresses several times daily and can use stye ointment which is sold OTC If any changes in vision, seek emergency medical care Coding Level of Care Code Est Pt Level 2 (48998) Diagnoses Hordeolum externum right lower eyelid H00.012
[2024-04-12 13:33] VITALS: BP 130/70; PULSE 60; TEMP 36.6; O2SAT 96; BMI 35.5
== END 2024-04-12 14:52 | disposition home or self-care (01) ==
PROVIDERS: PCP Internal Medicine Geriatric Medicine; Visit Provider Physician Assistant
DX: H00.012 Hordeolum externum right lower eyelid (principal)
CPT/HCPCS: 99212

== ENCOUNTER 2024-10-23 11:47 | Outpatient (AMB) | payer OTHER, MEDICAID, SELFPAY ==
--- OUTSIDE RECORDS SUMMARY | 2024-10-23 11:49 | XMS_ITS ---
Author Organization [facility] Address [address] [place] [address] Care Team Providers Care Recreation Facilities Supervisor Name Role Phone Name Brandan HEATH Primary Care Provider Aldair Reyes [phone] REASON FOR VISIT screening PROBLEMS Problem Type ICD Code Onset Dates Problem Status W/U Status Risk SNOMED Code Notes Problem Diverticulosis of large intestine without perforation or abscess without bleeding (K57.30) Active confirmed Diverticul ar disease of colon (874421500) Encounters Encounter Location Date Provider Diagnosis [facility] [place] Outpatient [address] [place], [place] [phone] 01/29/2024 Aldair Waters Encounter for scre ening colonoscopy Z12.11 ; Colon polyps K63.5 ; Diverticulosis of large intestine without perforation or abscess without bleeding K57.30 and Other hemorrhoids K64.8 ASSESSMENTS Encounter Date Diagnosis Assessment Notes Treatment Notes Treatment Clinical Notes 01/29/2024 Encounter for screening colonoscopy (ICD-10 - Z12.11) 01/29/2024 Colon polyps (ICD-10 - K63.5) 01/29/2024 Diverticulosis of large intestine without perforation or abscess without bleeding (ICD-10 - K57.30) 01/29/2024 Other hemorrhoids (ICD-10 - K64.8) PLAN OF TREATMENT No Information
--- OUTSIDE RECORDS SUMMARY | 2024-10-23 11:49 | XMS_ITS ---
Author Organization [facility] Address [address] [place] [address] Care Team Providers Care Intermodal Owner Operator Truck Driver Name Role Phone Name Brandan HEATH Primary Care Provider Aldair Reyes [phone] REASON FOR VISIT screening Encounters Encounter Location Date Provider Diagnosis [facility] [place] [address] [place], [place] [phone] 11/01/2023 Aldair Waters PLAN OF TREATMENT No Information
--- OUTSIDE RECORDS SUMMARY | 2024-10-23 11:50 | XMS_ITS ---
Author Organization [facility] Address [address] [place] [address] Care Team Providers Care Etcher Apprentice Photoengraving Name Role Phone Name Brandan HEATH Primary Care Provider Aldair Reyes [phone] REASON FOR VISIT r/s Encounters Encounter Location Date Provider Diagnosis [facility] [address] [place] [address] 10/31/2023 Aldair Waters PLAN OF TREATMENT No Information
--- OUTSIDE RECORDS SUMMARY | 2024-10-23 11:50 | XMS_ITS | Patient Health Record ---
Author Organization [facility] Address [address] [place] [address] Care Team Providers Care Federal Judicial Law Clerk Name Role Phone Name Brandan HEATH Primary Care Provider Aldair Reyes [phone] ALLERGIES Allergen (clinical drug ingredient) Drug/Non Drug Allergy documented on EMR Reaction Allergy Type Onset Date Status Motrin Unknown Drug Allergy Active surgical tape (uncoded) Unknown Allergy Active RESULTS Component Value Reference Range Notes Pathology (Not yet reviewed by provider) Interpretation: Performing Lab:[facility], [address] [place] [phone] Notes/Report: REASON FOR REFERRAL No Information MEDICATIONS Medication SIG (Take, Route, Frequency, Duration) Notes Start Date End Date Status Suboxone 8-2 MG take 2 FILMS under the tongue once daily Sublingual Once a day Reports for treatment of mood issues Active Colace 100 MG 1 capsule as needed Orally prn Active Gabapentin 300 MG 1 capsule Orally Twice a day Active Omeprazole 40 MG 1 capsule 30 minutes before morning meal Orally Once a day for 30 day(s) Active One A Day Mens VitaCraves - as directed Orally Active IMMUNIZATIONS Vaccine Route Administration Date Status Comme nts Flu vaccine no Preserv 3 and > Unknown 07/16/2014 Admin istered Influenza Unknown 09/12/2018 Administered Influenza Unknown 08/09/2023 Refused SOCIAL HISTORY Tobacco Use: Social History Observation Description Date Details (start date - stop date) Current Smoker NA - NA Sex Assigned At : Social History Observation Description Sex Assigned At Unknown Tobacco Use/Smoking Question Answer Notes Patient is a current smoker How often do you smoke cigarettes? every day How many cigarettes a day do you smoke? 6-10 How soon after you wake up do you smoke your fir st cigarette? after 60 minutes Are you interested in quitting? Ready to quit PROBLEMS Problem Type ICD Code Onset Dates Problem Status W/U Status Risk SNOMED Code Notes Problem Colon cancer screening (Z12.11) Active confirmed 182182975 Problem Diverticulosis of large intestine without perforation or abscess without bleeding (K57.30) Active confirmed Diverticul ar disease of colon (703171086) Problem Early satiety (R68.81) Active confirmed 433096406 Problem Gastroesophageal reflux disease without esophagitis (K21.9) Active confirmed 138071504 Problem History of hepatitis C (Z86.19) Active confirmed 14104224526503 Problem Abdominal pain, generalized (R10.84) Active confirmed 935517324 Encounters Encounter Location Date Provider Diagnosis [facility] [place] Out[place] [address] [place] [phone] 11/01/2023 Aldair Waters [facility] Outpatient [address] [place] [phone] 01/29/2024 Aldair Waters Encounter for screen ing colonoscopy Z12.11 ; Colon polyps K63.5 ; Diverticulosis of large intestine without perforation or abscess without bleeding K57.30 and Other hemorrhoids K64.8 [facility] [address] [place] [phone] 10/31/2023 Aldair Waters ASSESSMENTS Encounter Date Diagnosis Assessment Notes Treatment Notes Treatment Clinical Notes 01/29/2024 Encounter for screening colonoscopy (ICD-10 - Z12.11) 01/29/2024 Colon polyps (ICD-10 - K63.5) 01/29/2024 Diverticulosis of large intestine without perforation or abscess without bleeding (ICD-10 - K57.30) 01/29/2024 Other hemorrhoids (ICD-10 - K64.8) PLAN OF TREATMENT Pending Test Test Name Order Date ELECTROLYTES 06/29/2015 BUN 06/29/2015 CREATININE 06/29/2015 LIVER PROFILE 06/29/2015 AMYLASE 06/29/2015 LIPASE 06/29/2015 CBC w DIFF 06/29/2015 Pathology 01/29/2024 Future Test Test Name Order Date UPPER GI ENDOSCOPY 02/12/2015 UPPER GI ENDOSCOPY 04/03/2019 COLONOSCOPY 08/09/2023 Insurance Providers Payer Name Payer Address Payer Phone Subscriber Number Group Number Insured Name Patient Relationship to Insured Coverage Start Date Coverage End Date [employer] [address] [address] [place] [address] [id number] MARIAA RICHEY Self - patient is the insured MEDICAID OF [employer] [address] [place] [phone] [id number] MARIAA RICHEY Self - patient is the insured MEDICAL (GENERAL) HISTORY Medical History History ICD Code Denies [place],DM,CVA,Lung disease,renal dise ase Negative screening colonosco py at [facility] in 02/[address] Doran at [facility] Chronic Hep C-Genotype 1B--s /p treatment with Harvoni at [facility]--he reports success and had normal LFT's in 03/2019 Substance abuse and EtOH abuse--sober fo r 5-6 years Diagnosed with sleep apnea--doesn't use a CPAP mask though UGI bleed in 2004 in relatio n to an anastomotic ulcer from his previous gastric bypass surgery--upper endoscopy at that time revealed esophagitis EGD in 04/2015--gastritis, no ulcers, nor mal and patent anastomosis EGD in 2018 negative for esophagitis, PU D, gastitis; no definitive Hpylori Surgical History Surgery Date(Month/Year) Gastric bypass for weight lo ss in 1996--had an anastomotic ulcer with bleeding and an anastomotic stricture with corrective surgery by Dr. Vaz at [facility] in [place] in 2004--he had an UGI in 2007 showing a patent anastomosis Facial reconstruction surgery after trau ma Throat lesions removed Knee surgery on the right for a benign tumor Left axilla surgery for a fatty tumor Rotator cuff on right 2020 Right foot surgery for a Hammer toe 07/26 23
--- NOTE | 2024-10-23 12:06 | A.OFFVIS_ITS ---
Vital Signs 10/23/24 12:07 Weight 286 lb 9.615 oz BP 128/68 Blood Pressure Location Lt brachial Position Sitting Pulse 88 Pulse Source Pulse Oximeter Pulse Oximetry (%) 97 Oxygen Delivery Method Room Air Intake Visit Reasons: copd/bronchitis/hypoxia Allergies ibuprofen [From Motrin] Allergy (Severe, Verified 10/23/24 12:10) HIVES adhesive tape [Adhesive Tape] Allergy (Intermediate, Verified 10/23/24 12:10) SKIN BLISTERS Medication List - Last Reconciled 10/23/24 by Kaylen Doherty LPN aspirin 81 mg PO DAILY buprenorphine-naloxone 8-2 mg 20 mg sublingual DAILY gabapentin 800 mg PO TID lancets (FreeStyle Lancets) As directed multivitamin 1 tab PO DAILY omeprazole 40 mg PO DAILY HPI Comments Details: The patient is here for pulmonary evaluation. The patient is a 64-year-old g entleman with a known history of tobacco dependency for many years. Presenting with worsening respiratory symptoms. More recently the patient started developing worsening respiratory symptoms to the point that he could not breathe. He went outside a few times. He is inhaler was not helping. He could not tolerate the symptoms any longer he went to the [facility] ED. There he was admitted briefly to the hospital. The patient now is discharged with medications. I do not have those results. He did have a CT scan at [facility] though many years ago in 2021 and we did review that. The patient indeed has some mild emphysema he does have some chronic bronchitis. I do believe that he will be a good candidate for the lung cancer screening program at this time. In the meantime he does have significant rhonchi on examination. He does need to have a nebulizer home that he can use twice a day. It also we can maximize his respiratory therapy by switching his Symbicort to Breztri. The patient does have chronic bronchitis will go ahead and treat him for that. The patient now quit smoking and also cigars. In therefore he is already may positive changes to his lifestyle. Will go ahead and request pulmonary function studies and will follow-up in a couple of months. The patient also is having some daytime drowsiness and likely needs sleep study but will address that when he returns in a couple months. [facility] Medical History (Updated 10/23/24 @ 22:41 by Charanjit Limon MD) COPD (chronic obstructive pulmonary disease) Smoking history Diarrhea Intussusception Hx of trauma LORENZO (obstructive sleep apnea) Hx of substance abuse History of alcohol abuse Hx of hepatitis C Incisional pain GERD (gastroesophageal reflux disease) Surgical History Hx of foot surgery Hx of repair of right rotator cuff History of axillary surgery Hx of knee surgery History of excision of lesion History of esophagogastroduodenoscopy (EGD) Hx of colonoscopy History of Maddy-en-Y gastric bypass Family History Father Cancer Diabetes Mother Diabetes Cancer Social History Alcohol intake: never Patient Tobacco Use Status: Current someday Tobacco user Tobacco use type: Cigar Cigarettes Per Day: 10 Current occupational status: unemployed Current occupation: right handed Review of Systems Const Denies fever(s) and Reports weight loss Eyes Reports no additional complaints ENT Reports nasal congestion Card Denies chest pain and Reports dyspnea on exertion Resp Reports chest congestion, Reports cough, Reports dyspnea on exertion and Reports wheezing GI Reports no additional complaints Musc Reports myalgias Skin/Breast Denies rash Neuro Reports no additional complaints Endo Reports no additional complaints Aller/Immun Reports wheezing Physical Exam Vital Signs: Last Vital Signs Pulse 88 10/23/24 12:07 BP 128/68 10/23/24 12:07 Pulse Ox 97 10/23/24 12:07 Oxygen Delivery Method Room Air 10/23/24 12:07 Const General: comfortable HEENT Head: Yes normocephalic Neck Neck: Yes supple Chest Chest palpation & inspection: normal inspection of the chest Resp Effort & Inspection: normal respiratory effort and prolonged expiratory phase Auscultation: rhonchi, wheezes and diminished lung sounds Cardio Heart sounds: S1 normal heart sound present and S2 normal heart sound present GI Palpation (GI): Soft to palpation Skin General skin exam: no rashes or lesions noted Extrem General: No clubbing and No cyanosis Assessment & Plan Assessment & Plan (1) Smoking history: Code(s): Z87.891 - Personal history of nicotine dependence Category: Social Hx (2) COPD (chronic obstructive pulmonary disease): Code(s): J44.9 - Chronic obstructive pulmonary disease, unspecified Category: Medical (3) LORENZO (obstructive sleep apnea): Code(s): G47.33 - Obstructive sleep apnea (adult) (pediatric) Category: Medical Plan stop Symbicort start Breztri BID start Azithromycin MWF will need an EKG to assess QT start nebulizer with xopenex BID PFTs LDCT Start LORENZO re-eval when he returns F/U 6-8 weeks Orders: Orders ECG 12 lead EKG Today J44.9 - Chronic obstructive pulmonary disease, unspecified PFT pulmonary function test Today J44.9 - Chronic obstructive pulmonary disease, unspecified, Z87.891 - Personal history of nicotine dependence Referrals Lung Cancer Screening Referral Z87.891 - Personal history of nicotine dependence Medications: New csznfzvhkk-pmncamww-yxgppgtaoq 160-9-4.8 mcg/actuation (Breztri Aerosphere) 2 inhalations inhalation BID 10.7 grams 0RF azithromycin Take 1 tablet on Monday/Monday/Monday 250 mg PO 3XW 28 days 12 tabs 6RF K21.9 - Gastro-esophageal reflux disease without esophagitis albuterol sulfate 90 mcg/actuation (Ventolin HFA) 2 puffs inhalation QID 30 days PRN 18 grams 11RF shortness of breath or wheezing levalbuterol HCl 1.25 mg (3 mL) inhalation BID 30 days 180 mL 6RF J44.9 - Chronic obstructive pulmonary disease, unspecified Coding Level of Care Code New Pt Level 4 (56895) Diagnoses Smoking history Z87.891 COPD (chronic obstructive pulmonary disease) J44.9 LORENZO (obstructive sleep apnea) G47.33 Time Spent (min) 40
[2024-10-23 12:07] VITALS: BP 128/68; PULSE 88; O2SAT 97
== END 2024-10-23 12:44 | disposition home or self-care (01) ==
PROVIDERS: PCP Internal Medicine Geriatric Medicine; Visit Provider Hospitalist
DX: Z87.891 Personal history of nicotine dependence (principal); J44.9 Chronic obstructive pulmonary disease, unspecified; G47.33 Obstructive sleep apnea (adult) (pediatric)
CPT/HCPCS: 99204

== ENCOUNTER 2024-12-31 16:47 | Inpatient (IN) | payer MEDICARE, MEDICAID, SELFPAY ==
--- NOTE | ~2024-12-31 | MR_ITS ---
EXAMINATION: MR BRAIN WITHOUT CONTRAST CLINICAL INFORMATION: Concerning for infarct. Change in mental status. COMPARISON: Correlated to CT dated December 31, 2024. TECHNIQUE: MRI of the brain was obtained using routine sequences without contrast. FINDINGS: No restricted diffusion within the brain parenchyma. No acute intracranial hemorrhage. Bilateral, multifocal punctate, nonspecific subcortical and deep white matter hyperintense T2 FLAIR signal involving centrum semiovale and pratt radiata. No mass effect midline shift hydrocephalus or herniation. Flow-void signal within the main vessels is normal. Posterior cranial fossa contents demonstrated no gross signal abnormality. Sellar/suprasellar region demonstrated no signal abnormality or lesions. Craniocervical junction is intact and normal. Mild prominence of the extra-axial CSF spaces cerebral sulci and. MR/MR head/brain wo con IMPRESSION: No acute stroke/nonhemorrhagic ischemia. Nonspecific T2 FLAIR signal foci. This could be seen patients with migraines. Small vessel occlusive disease versus demyelinating process seem less likely. Electronically signed by: Kobi Ontiveros MD 01/02/2025 12:59 PM EST
--- NOTE | ~2024-12-31 | CT_ITS ---
CLINICAL HISTORY: abd pain CT abdomen and pelvis with contrast Comparison: CT/REG - CT ABDOMEN PELVIS WO CON - 12/25/20 17:47 EST Findings: The lung bases are clear. Status post cholecystectomy. No evidence of intra or extrahepatic ductal dilation. Remainder of the solid organs are otherwise unremarkable. No bowel obstruction, pneumoperitoneum, or pneumatosis. Changes related to prior gastric bypass surgery. Pelvic contents unremarkable. Normal appendix. The bones are intact. Moderate to severe multilevel spondylosis of the lumbar spine, most notably at L4-L5 with severe spinal canal narrowing. IMPRESSION: No acute findings. Moderate to severe multilevel spondylosis of the lumbar spine, most notably at L4-L5 with severe spinal canal narrowing. Status post cholecystectomy. Changes related to gastric bypass surgery. This document has been electronically signed by: Louise Starks MD on 12/31/2024 21:23:25
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
--- NOTE | ~2024-12-31 | CT_ITS ---
CLINICAL HISTORY: AMS CT head without contrast Comparison: 11/16/2017 Findings: Subtle hypodensity is noted within the right inferior temporal lobe which could be artifactual however, acute infarct cannot be excluded. MRI brain without contrast can be obtained for further evaluation if clinically appropriate. No significant atrophy-like change or white matter disease. No acute intracranial hemorrhage. There is no sinus or mastoid fluid. The orbits are unremarkable. There is no acute fracture. Limb length IMPRESSION: Subtle hypodensity is noted within the right inferior temporal lobe which could be artifactual however, acute infarct cannot be excluded. MRI brain without contrast can be obtained for further evaluation if clinically appropriate. This document has been electronically signed by: Louise Starks MD on 12/31/2024 21:16:11
--- NOTE | ~2024-12-31 | CT_ITS ---
CLINICAL HISTORY: fall? CT cervical spine without contrast Comparison: CR - CERV SPINE 4 TO 5 VIEWS [id number] - 09/07/15 17:16 EST Findings: Normal vertebral body alignment. Moderate multilevel spondylosis with disc space narrowing, endplate sclerosis, osteophytosis, and facet arthropathy. No acute fractures or dislocations. Visualized intracranial contents are unremarkable. Soft tissues of the neck are normal. No consolidation or effusion at the lung apices. IMPRESSION: No acute fracture or traumatic listhesis of the cervical spine. Moderate multilevel spondylosis. This document has been electronically signed by: Louise Starks MD on 12/31/2024 21:13:39
[2024-12-31 16:53] VITALS: BP 140/87; PULSE 78; O2SAT 97
[2024-12-31 17:01] VITALS: BP 161/84; PULSE 78; RESP 20; TEMP 36.4; O2SAT 99; BMI 36.5
--- NOTE | 2024-12-31 17:30 | ED_ITS ---
HPI - General Adult General Chief complaint: Altered Mental Status Stated complaint: noro virus x 2weeks, AMS x 2days Time Seen by Provider: 12/31/24 17:20 Source: patient Mode of arrival: EMS History of Present Illness ED Provider: Salvador JONES narrative: 64-year-old male with past medical history of acid reflux, alcohol abuse, substance abuse, hepatitis-C, intussusception, Maddy-en-Y gastric bypass presenting for AMS iso gastroenteritis sxs. - pt has been experiencing n/v/d for the past week and has reportedly been mildly altered for the past two days. Here patient is complaining of nausea and abdominal pain. He also endorses tactile fevers, - Pt denies falls, head pain, neck pain, chest pain, sob Related Data Home Medications ?Medication ?Instructions ?Recorded ?Confirmed buprenorphine 8 mg-naloxone 2 mg 20 mg sublingual DAILY 10/09/20 10/23/24 sublingual film gabapentin 800 mg tablet 800 mg PO TID 01/26/22 10/23/24 lancets 28 gauge (FreeStyle 01/26/22 10/23/24 Lancets) omeprazole 40 mg capsule,delayed 40 mg PO DAILY 01/26/22 10/23/24 release multivitamin 1 tab PO DAILY 10/27/23 10/23/24 aspirin 81 mg tablet,delayed 81 mg PO DAILY 10/23/24 10/23/24 release Previous Rx's ?Medication ?Instructions ?Recorded albuterol sulfate 90 mcg/actuation 2 puff inhalation QID PRN 10/23/24 aerosol inhaler (Ventolin HFA) shortness of breath or wheezing 30 days #18 grams azithromycin 250 mg tablet 250 mg PO 3XW 28 days #12 tabs 10/23/24 budesonide 160 mcg-glycopyr 9 2 inh inhalation BID #10.7 grams 10/23/24 mcg-formot 4.8 mcg/actuation HFA inhaler (Breztri Aerosphere) levalbuterol HCl 1.25 mg/3 mL 1.25 mg (3 mL) inhalation BID 30 10/23/24 solution for nebulization days #180 mL Allergies Allergy/AdvReac Type Severity Reaction Status Date / Time ibuprofen [From Motrin] Allergy Severe HIVES Verified 12/31/24 17:03 adhesive tape [Adhesive Tape] Allergy Intermediate SKIN Verified 10/23/24 12:10 BLISTERS Review of Systems 2 Review of Systems: pt endorses n/v/d, tactile fevers, abdominal pain Yes all other systems are reviewed and are negative [facility] Past Medical History Attestation statement: The following information was validated with the patient. [facility] Narrative: Intussusception, substance abuse, alcohol abuse, Maddy-en-Y gastric bypass Source: old records reviewed Medical History COPD (chronic obstructive pulmonary disease) Smoking history Diarrhea Intussusception Hx of trauma LORENZO (obstructive sleep apnea) Hx of substance abuse History of alcohol abuse Hx of hepatitis C Incisional pain GERD (gastroesophageal reflux disease) Surgical History Hx of foot surgery Hx of repair of right rotator cuff History of axillary surgery Hx of knee surgery History of excision of lesion History of esophagogastroduodenoscopy (EGD) Hx of colonoscopy History of Maddy-en-Y gastric bypass Family History Family History Father Cancer Diabetes Mother Diabetes Cancer Social History Social History Alcohol intake: never Patient Tobacco Use Status: Current someday Tobacco user Tobacco use type: Cigar Cigarettes Per Day: 10 Advance Directives: No Advance Directives Information Provided: Yes Current occupational status: unemployed Current occupation: right handed Physical Exam ED Vital Signs: Vital Signs - 24 hr 12/31/24 17:01 12/31/24 19:08 Temperature 97.5 F Pulse Rate 78 75 Respiratory Rate 20 18 Blood Pressure 161/84 H 132/80 Pulse Oximetry 99 97 Oxygen Delivery Method Room Air Room Air BMI result Body Mass Index 36.5 Well-appearing male in no acute distress A&O x3 (patient disoriented to events); no focal neurologic deficits appreciated; strength and sensation equal in both upper and lower extremities Head atraumatic and normocephalic; no midline C-spine tenderness to palpation; no nuchal rigidity Lungs clear to auscultation bilaterally Normal S1-S2 regular rate and rhythm Abdomen is soft mildly distended with epigastric tenderness to palpation Medications Administered Discontinued Medications Generic Name Dose Route Start Last Admin Trade Name Vinay PRN Reason Stop Dose Admin Thiamine HCl 100 mg/ Sodium 101 mls @ 202 mls/hr 12/31/24 17:42 12/31/24 18:03 Chloride IV 12/31/24 18:11 Not Given ONCE ONE Folic Acid 1 mg/ Sodium 50.2 mls @ 100.4 mls/hr 12/31/24 18:00 12/31/24 20:51 Chloride IV 12/31/24 18:29 Infused ONCE ONE Infusion Thiamine HCl 200 mg/ Sodium 102 mls @ 202 mls/hr 12/31/24 17:45 12/31/24 18:50 Chloride IV 12/31/24 18:12 Infused ONCE ONE Infusion Iohexol 100 ml 12/31/24 19:27 12/31/24 19:28 Iohexol 350 Mg/Ml 100 Ml Infus..Btl IV 12/31/24 19:28 85 ml ONCE ONE Administration Lorazepam 2 mg 12/31/24 19:01 12/31/24 19:00 Lorazepam 2 Mg/Ml Vial IVPUSH 12/31/24 19:02 2 mg ONCE ONE Administration Medical Decision Making Medical Decision Making MDM Narrative: 64-year-old male presenting for nausea, vomiting, diarrhea and altered mental status -I am concerned for the following; gastroenteritis, electrolyte/metabolic disturbance, dehydration, head bleed, intoxication, wernickes encephalopathy -I considered stroke however given lack of focal deficits this is less likely. Furthermore pt is out of lysis window. I will obtain CT head and if any concerning findings I will obtain CTA head/neck -labs, imaging, thiamine, folic ordered Lab and imaging interpretation: -no white count, stable H&H, elevated ammonia, flat troponins x2, electrolytes within normal limits, normal creatinine -ekg appears similar to rhythm strips in chart; no overt signs of ischemia -I reviewed patient's CT imaging did not appreciate head bleed, neck fracture or bowel obstruction -Radiology report read :Subtle hypodensity is noted within the right inferior temporal lobe which could be artifactual however, acute infarct cannot be excluded. Pt becoming agitated; I ordered 2mg IV valium however 2mg Ativan was given; will monitor pt MRI brain ordered due to CT findings; I spoke with media professional neurologist Dr. Byrnes who agrees with plan for MRI I spoke with overnight hospitalist Dr. Chavarria who accepted pt for admission Lab Data 12/31/24 18:05 12/31/24 18:05 Labs: Lab Results 12/31/24 12/31/24 12/31/24 Range/Units 18:04 18:05 20:24 WBC 4.9 (4.8-10.8) X10*3/uL RBC 5.12 (4.60-5.80) X10*6/uL Hgb 14.6 (14.0-18.0) g/dl Hct 43.9 (42.0-52.0) % MCV 85.7 (80.0-98.0) fL MCH 28.5 (27.0-33.0) pg MCHC 33.3 (31.0-36.0) g/dl RDW 13.7 (11.0-16.0) % Plt Count 214 (160-400) X10*3/uL MPV 9.0 L (9.4-12.4) fL Immature Gran % (Auto) 0.4 (0.0-0.4) % Neut % (Auto) 79.1 H (45-73) % Lymph % (Auto) 14.2 L (20-40) % [place] % (Auto) 5.9 (2-11) % Eos % (Auto) 0.0 (0-4) % Baso % (Auto) 0.4 (0-2) % Lymph # (Auto) 0.7 L (1.2-4.9) X10*3/uL [place] # (Auto) 0.3 (0.1-1.2) X10*3/uL Eos # (Auto) 0.0 (0.0-0.4) X10*3/uL Baso # (Auto) 0.0 (0.0-0.2) X10*3/uL Abs Immat Gran (auto) 0.02 (0.00-0.03) X10*3/uL Absolute Neuts (auto) 3.9 (2.0-8.3) x10*3/uL Absolute Nucleated RBC 0.000 (0.0-0.012) X10*3/uL Nucleated RBC % (auto) 0.0 (0.0-0.2) /100WBC Sodium 140 (135-145) mmol/L Potassium 3.7 (3.3-5.1) mmol/L Chloride 108 (96-108) mmol/L Carbon Dioxide 23 (22-29) mmol/L Anion Gap 13 (12-20) BUN 9 (9-16) mg/dL Creatinine 0.63 (0.5-1.4) mg/dL Estim Creat Clear Calc 171.3 Estimated GFR > 60 Random Glucose 111 (60-115) mg/dL Lactic Acid 1.3 (0.5-2.0) mmol/L Calcium 9.5 (8.4-10.2) mg/dL Phosphorus 1.7 L (2.7-4.5) mg/dL Magnesium 2.0 (1.6-2.6) mg/dL Total Bilirubin 0.6 (0.0-1.0) mg/dL Direct Bilirubin 0.2 (0.0-0.5) mg/dL AST 33 (5-37) U/L ALT 21 (0-40) U/L Alkaline Phosphatase 107 (39-117) U/L Ammonia (13-55) umol/L Troponin I High Sens 9.7 8.2 (<3.5-35.0) ng/L Total Protein 7.9 (6.5-8.0) g/dL Albumin 4.2 (3.5-5.0) g/dL Lipase 7 L (8-78) U/L Ethyl Alcohol < 10 mg/dL Influenza Type A (PCR) NEGATIVE (Negative) Influenza Type B (PCR) NEGATIVE (Negative) RSV RNA Qual (PCR) NEGATIVE (Negative) SARS-CoV-2 RNA (RT-PCR) NEGATIVE (Negative) 12/31/24 Range/Units 20:54 WBC (4.8-10.8) X10*3/uL RBC (4.60-5.80) X10*6/uL Hgb (14.0-18.0) g/dl Hct (42.0-52.0) % MCV (80.0-98.0) fL MCH (27.0-33.0) pg MCHC (31.0-36.0) g/dl RDW (11.0-16.0) % Plt Count (160-400) X10*3/uL MPV (9.4-12.4) fL Immature Gran % (Auto) (0.0-0.4) % Neut % (Auto) (45-73) % Lymph % (Auto) (20-40) % [place] % (Auto) (2-11) % Eos % (Auto) (0-4) % Baso % (Auto) (0-2) % Lymph # (Auto) (1.2-4.9) X10*3/uL [place] # (Auto) (0.1-1.2) X10*3/uL Eos # (Auto) (0.0-0.4) X10*3/uL Baso # (Auto) (0.0-0.2) X10*3/uL Abs Immat Gran (auto) (0.00-0.03) X10*3/uL Absolute Neuts (auto) (2.0-8.3) x10*3/uL Absolute Nucleated RBC (0.0-0.012) X10*3/uL Nucleated RBC % (auto) (0.0-0.2) /100WBC Sodium (135-145) mmol/L Potassium (3.3-5.1) mmol/L Chloride (96-108) mmol/L Carbon Dioxide (22-29) mmol/L Anion Gap (12-20) BUN (9-16) mg/dL Creatinine (0.5-1.4) mg/dL Estim Creat Clear Calc Estimated GFR Random Glucose (60-115) mg/dL Lactic Acid (0.5-2.0) mmol/L Calcium (8.4-10.2) mg/dL Phosphorus (2.7-4.5) mg/dL Magnesium (1.6-2.6) mg/dL Total Bilirubin (0.0-1.0) mg/dL Direct Bilirubin (0.0-0.5) mg/dL AST (5-37) U/L ALT (0-40) U/L Alkaline Phosphatase (39-117) U/L Ammonia 70 H (13-55) umol/L Troponin I High Sens (<3.5-35.0) ng/L Total Protein (6.5-8.0) g/dL Albumin (3.5-5.0) g/dL Lipase (8-78) U/L Ethyl Alcohol mg/dL Influenza Type A (PCR) (Negative) Influenza Type B (PCR) (Negative) RSV RNA Qual (PCR) (Negative) SARS-CoV-2 RNA (RT-PCR) (Negative) Discharge Plan Discharge Clinical Impression: AMS (altered mental status), Nausea & vomiting Patient Disposition: Admitted As Inpatient Print Language: Samoan
[2024-12-31 18:14] LABS: MANUAL DIFF FLAG NO
[2024-12-31] MEDS: Thiamine HCL 200 MG in 0.9 % Sodium Chloride 100 ML 202 MG IV (18:16)
--- NOTE | 2024-12-31 18:19 | ECG_ITS ---
Test Reason : altered menta status Blood Pressure : */* mmHG Vent. Rate : 76 BPM Atrial Rate : 76 BPM P-R Int : 146 ms QRS Dur : 130 ms QT Int : 438 ms P-R-T Axes : 72 53 40 degrees QTcB Int : 492 ms Normal sinus rhythm with sinus arrhythmia Right bundle branch block Abnormal ECG When compared with ECG of 16-Nov-2017 17:14, Premature atrial complexes are no longer Present Right bundle branch block is now Present Referred By: Jake Franco Electronically Signed By: Lasha Maravilla
[2024-12-31 18:21] LABS: Basophils Percent Auto 0.4 % (0-2); Hematocrit 43.9 % (42.0-52.0); Hemoglobin 14.6 g/dl (14.0-18.0); Imm Gran Abs Auto 0.02 X10*3/uL (0.00-0.03); Imm Gran Pct Auto 0.4 % (0.0-0.4); Lymphocytes Absolute Auto 0.7 X10*3/uL (1.2-4.9); Lymphocytes Percent Auto 14.2 % (20-40); Mean Corpuscular HGB Conc 33.3 g/dl (31.0-36.0); Mean Corpuscular Hemoglobin 28.5 pg (27.0-33.0); Mean Corpuscular Volume 85.7 fL (80.0-98.0); Monocytes Absolute Auto 0.3 X10*3/uL (0.1-1.2); Monocytes Percent Auto 5.9 % (2-11); Neutrophils Absolute Auto 3.9 x10*3/uL (2.0-8.3); Neutrophils Percent Auto 79.1 % (45-73); Platelet Count 214 X10*3/uL (160-400); Red Blood Count 5.12 X10*6/uL (4.60-5.80); Red Cell Distribution Width 13.7 % (11.0-16.0); White Blood Count 4.9 X10*3/uL (4.8-10.8)
[2024-12-31 18:32] LABS: Lactic Acid 1.3 mmol/L (0.5-2.0)
[2024-12-31 18:37] LABS: Alanine Aminotransferase 21 U/L (0-40); Albumin Level 4.2 g/dL (3.5-5.0); Alkaline Phosphatase 107 U/L (39-117); Anion Gap 13 (12-20); Aspartate Amino Transferase 33 U/L (5-37); Bilirubin Direct 0.2 mg/dL (0.0-0.5); Bilirubin Total 0.6 mg/dL (0.0-1.0); Blood Urea Nitrogen 9 mg/dL (9-16); Calcium 9.5 mg/dL (8.4-10.2); Carbon Dioxide 23 mmol/L (22-29); Chloride 108 mmol/L (96-108); Creatinine Clr Calc Pharmacy 171.3; Estimated Glomerular Filt Rate > 60; Ethanol < 10 mg/dL; Glucose Random 111 mg/dL (60-115); Lipase 7 U/L (8-78); Phosphorus 1.7 mg/dL (2.7-4.5); Potassium 3.7 mmol/L (3.3-5.1); Sodium 140 mmol/L (135-145); Total Protein 7.9 g/dL (6.5-8.0)
[2024-12-31 18:40] LABS: Troponin-I High Sensitivity 9.7 ng/L (<3.5-35.0)
[2024-12-31] MEDS: Folic Acid 1 MG in 0.9 % Sodium Chloride 50 ML 100.4 MG IV (18:50)
[2024-12-31 18:55] LABS: Influenza A PCR NEGATIVE (Negative); Influenza B PCR NEGATIVE (Negative); Resp Syncy Virus RNA Qual PCR NEGATIVE (Negative); SARS COV2 PCR INHOUSE NEGATIVE (Negative)
[2024-12-31] MEDS: LORazepam 2 MG/ML VIAL IVPUSH (19:00)
--- NOTE | 2024-12-31 19:02 | PC.NURSE ---
patient became anxious trying to get oob saying i need to get out of here. attempt to redirect patient verbalized understanding he is in emergency room and needs to stay in bed. hob elevated. pt then reattempts to get oob verbalizing he is feeling anxious. denies cp/sob. sats 97% on RA. April RAE, yang RN and Rosie CHARLTON at bedside pt continues to be restless. pt in agreement verbalizing he needs something as he's feeling anxious. per MD verbal order ivp ativan given. pt attempting to use urinal at this time. nad.
[2024-12-31 19:08] VITALS: BP 132/80; PULSE 75; RESP 18; O2SAT 97
--- NOTE | 2024-12-31 19:15 | PC.NURSE ---
pt to ct scan at this time
[2024-12-31] MEDS: iohexoL 350 MG/ML 100 ML INFUS..BTL IV (19:28)
--- OUTSIDE RECORDS SUMMARY | 2024-12-31 19:59 | XMS_ITS | Encounter Summary ---
Author Organization [employer] Address [address] [place] [address] Care Team Providers Care Cleaning Specialist Name Role Phone Name, Brandan HEATH Primary Care Provider [phone] Encounter Details Date Type Department Care Team (Late st Contact Info) Description 05/26/2023 Orders Only [facility] MEDICINE [address] [place] [address] [phone] Rowan Pepe FNP [address] [place] [address] Dept [place] [address] Social History Tobacco Use Types Packs/Day Years Used Date Smoking Tobacco: Every Day Cigars Smokeless Tobacco: Never Alcohol Use Standard Drinks/Week Comments Never 0 (1 standard drink = 0.6 oz pur e alcohol) Depression Answer Date Recorded Patient Health Questionnaire-2 Score 0 03/10/2023 Sex and Gender Information Value Date Recorded Sex Assigned at Male 09/05/2022 10:17 AM EDT Legal Sex Male 10:17 AM EDT Gender Identity Male 09/05/2022 10:17 AM EDT Sexual Orientation Don't know 09/05/2022 10 :17 AM EDT COVID-19 Exposure Response Date Recorded In the last 10 days, have yo u been in contact with someone who was confirmed or suspected to have Coronavirus/COVID-19? No / Unsure 05/05/2023 9:16 AM EDT documented as of this encounter Plan of Treatment Upcoming Encounters Date Type Department Care Team (Late st Contact Info) Description 01/14/2025 1:15 PM EDT Office Visit [facility] MEDICINE [address] [place] [address] [phone] Name, MD Brandan [address] [place] [address] 02/11/2025 10:00 AM EDT Office Visit [facility] MEDICINE [address], [place] [phone] Name, MD Brandan [address] [place] [address] documented as of this encounter Procedures Procedure Name Priority Date/Time Associated Diagnosis Comments HEMATOXYLIN AND EOSIN STAIN Routine 01/29/2024 10:30 AM EDT documented in this encounter Results * Hematoxylin and Eosin Stain (01/29/2024 10:30 AM EDT) 01/29/2024 10:3 0 AM EDT 01/29/2024 10:58 AM EDT [facility] - 01/31/2024 8:59 AM EDT ----- ------- Name: Raudel Pemberton ?Age/Sex: 63/M [facility] 1960 [id number] [id number] ?? Attend Dr: Aldair Waters ?Re01/29/24 ?Status: DEP SDC ? Location: HO.SSS ?Disch: ? ----- ------- SPEC : [id number] ? RECD: 01/29/24 ? STATUS: ??SOUT ? REQ NUM: [id number] ? ABDI: 01/29/24-1030 ? SUBM DR: Aldair Waters ? ENTERED: ??01/29/24-1106 ?SP TYPE: Surgical ? OTHR DR: NameBrandan MD ? ORDERED: ??HE Stain/3, Gross Micro L4 ? Diagnosis ?? Colon, polypectomies: ??Fragments of tubular adenomata; negative for high- grade dysplasia ?? or carcinoma. ?Clinical History Pre-Op Dx: ??Screening Post-Op Dx: Diverticulosis, polyps ?Microscopic Description Microscopic sections reviewed. ? Material Received ?? Colon polyps ? Gross Description Received in formalin labeled ?colon polyps? are 3 lawton and lawton-pink irregular and papular tissue fragments ranging from 0.25-0.5 cm, submitted in toto in a cassette labeled Sudeep JOLLEY Copies To: ?? Name,Brandan HEATH ?? [address] ?? [place] [address] ?? [phone] ?? Aldair Waters ?? [address] [place] [address] [id number] ?? [place] [address] ?? [phone] ----- ------- Signed (signature on file) Andrew Henry MD 01/31/24 0859 ? ----- ------- ? END OF REPORT ? us Generic External Data Provider LAB BLOOD ORDERAB LES Final Result [facility] [address] [place] [address] [phone] documented in this encounter Visit Diagnoses Not on filedocumented in this encounter Care Teams Cleaning Specialist Relationship Specialty Start Date End Date Name, MD Brandan [address] [facility] [place] [address] PCP - General Family Medicine 12/15/15 documented as of this encounter
--- OUTSIDE RECORDS SUMMARY | 2024-12-31 19:59 | XMS_ITS ---
Author Organization [facility] Address [address] [place] [address] Care Team Providers Care And Drying Supervisor Cooking Casing Name Role Phone Name Brandan HEATH Primary Care Provider Aldair Reyes [phone] REASON FOR VISIT r/s Encounters Encounter Location Date Provider Diagnosis [facility] [address] [place] [address] 10/31/2023 Aldair Waters PLAN OF TREATMENT No Information
--- OUTSIDE RECORDS SUMMARY | 2024-12-31 19:59 | XMS_ITS | Patient Health Record ---
Author Organization [facility] Address [address] [place] [address] Care Team Providers Care Quality Consultant Name Role Phone Name Brandan HEATH Primary Care Provider Aldair Reyes [phone] ALLERGIES Allergen (clinical drug ingredient) Drug/Non Drug Allergy documented on EMR Reaction Allergy Type Onset Date Status Motrin Unknown Drug Allergy Active surgical tape (uncoded) Unknown Allergy Active RESULTS Component Value Reference Range Notes Pathology (Not yet reviewed by provider) Interpretation: Performing Lab:[facility], [address] [place] [phone] Notes/Report: REASON FOR REFERRAL No Information MEDICATIONS [...] Problem Colon cancer screening (Z12.11) Active confirmed 503291051 Problem Diverticulosis of large intestine without perforation or abscess without bleeding (K57.30) Active confirmed Diverticul ar disease of colon (794210929) Problem Early satiety (R68.81) Active confirmed 574486958 Problem Gastroesophageal reflux disease without esophagitis (K21.9) Active confirmed 970022528 Problem History of hepatitis C (Z86.19) Active confirmed 69058230815819 Problem Abdominal pain, generalized (R10.84) Active confirmed 141075313 Encounters Encounter Location Date Provider Diagnosis [facility] [address] [place] [address] [phone] 01/29/2024 Aldair Waters Encounter for scre ening [...] Date Coverage End Date [employer] [address] [address] KASIA Grace [place]AL[place] [address] [id number] MARIAA RICHEY Self - patient is the insured MEDICAID [facility] [address] [place] [address] [id number] MARIAA RICHEY Self - patient is the insured MEDICAL (GENERAL) HISTORY Medical History History ICD Code Denies [place],DM,CVA,Lung disease,renal dise ase Negative screening colonosco py at [facility] in 02/[address] Doran at [facility] Chronic Hep C-Genotype 1B--s /p treatment with Harvoni at [facility]--he reports success and had normal LFT's in [...] with corrective surgery by Dr. Vaz at [facility] in [place] in 2004--he had an UGI in 2007 showing a patent anastomosis Facial reconstruction surgery after trau ma Throat lesions removed Knee surgery on the right for a benign tumor Left axilla surgery for a fatty tumor Rotator cuff on right 2020 Right foot surgery for a Hammer toe 07/26 23
--- OUTSIDE RECORDS SUMMARY | 2024-12-31 19:59 | XMS_ITS | Clinical Summary ---
Author Organization [employer] Address [address] [place] [address] 7[address] [place] [address] Care Team Providers Care Big Data Hadoop Developer Name Role Phone Name, Brandan HEATH Primary Care Provider [phone] Allergies Active Allergy Reactions Criticality Noted Date Comments Ibuprofen 01/25/2016 Other reaction(s): hives & urticaria Wound Dressing Adhesive 07/07/2017 Other reaction(s): tape eats through my skin Medications Lancets (onetouch ultrasoft) lancetsIndicati ons:Hypoglycemi a 1 each by Other route 3 times daily. Use as instructed 100 each 11 12/13/19 23 Active glucose blood test stripIndication s:Hypoglycemia 1 each by Other route 3 times daily. Use as instructed 100 each 11 12/13/19 23 Active Blood Glucose Monitoring Suppl (Accu-Chek Ayla Plus) w/Device kitIndications: Hypoglycemia Use as directed 1 kit 12/13/19 23 Active fluticasone (Flonase) 50 MCG/ACT nasal sprayIndication s:Seasonal allergies Administer 2 sprays into each nostril Once per day. Shake gently. Before first use, prime pump. After use, clean tip and replace cap. 16 g 2 03/04/20 24 025 Active cetirizine (ZyrTEC) 10 MG tabletIndicatio ns:Seasonal allergies TAKE 1 TABLET BY MOUTH EVERY DAY 90 tablet 1 05/27/20 24 Active buPROPion SR (Wellbutrin SR) 150 MG 12 hr tabletIndicatio ns:Depression, unspecified depression type TAKE 1 TABLET BY MOUTH TWICE DAILY 60 tablet 2 07/25/20 24 Active albuterol 108 (90 Base) MCG/ACT inhaler Inhale 2 puffs every 6 (six) hours if needed for wheezing. 18 g 11 08/20/20 24 025 Active Aspirin Low Dose 81 MG EC tablet Take 81 mg by mouth Once per day. 08/26/20 Active atorvastatin (Lipitor) 40 MG tablet Take 1 tablet by mouth Once per day. 08/26/20 Active Symbicort 160-4.5 MCG/ACT inhaler Inhale 2 puffs 2 times daily. 08/26/20 Active metoprolol succinate XL (Toprol-XL) 25 MG 24 hr tablet Take 1 tablet by mouth Once per day. 08/26/20 Active nicotine (Nicoderm, Step 1) 21 MG/24HR patch Place 1 patch on the skin 1 (one) time each day at the same time. 08/26/20 Active Spiriva HandiHaler [address] 1 capsule into inhaler and inhale Once per day. 08/26/20 Active Buprenorphine HCl-Naloxone HCl (Suboxone) 8-[address] 2 Film under the tongue Once per day. Active omeprazole (PriLOSEC) [address] capsuleIndtroy ons:Depression, unspecified depression type TAKE 1 CAPSULE BY MOUTH EVERY DAY BEFORE A MEAL 90 capsule 10/23/20 24 Active gabapentin (Neurontin) 800 MG tablet TAKE 1 TABLET BY MOUTH EVERY MORNING, 1 TABLET AT LUNCH AND 1 1/2 TABLETS AT BEDTIME 110 tablet 4 12/26/19 25 Active gabapentin (Neurontin) 800 MG tablet TAKE 1 TABLET BY MOUTH EVERY MORNING, 1 TABLET AT LUNCH AND 1 1/2 TABLETS AT BEDTIME 110 tablet 4 07/22/20 24 025 Discontinued Active Problems Problem Noted Date Diagnosed Date Venous insufficiency 03/04/2024 GERD (gastroesophageal reflux disease) 3 Depressive disorder 03/07/2023 Chronic right shoulder pain 03/07/2023 H. pylori infection 03/07/2023 Osteoarthritis of right shoulder 08/05/2020 Obstructive sleep apnea syndrome 09/30/2019 Assessment & Plan (03/10/2023 2:06 PM EDT): Pt not using CPAP for the past 1 year FU with PCP, we discussed the importance of using CPAP that will probably improve his tiredness and decrease risk of cardiovascular complications. Hypoglycemia 10/18/2018 Vertigo 06/13/2018 Peripheral neuropathy 01/17/2018 Assessment & Plan (03/10/2023 2:06 PM EDT): r/o vitamin deficiencies s/p gastric bypass currently on nonsupplementation r/o dm FU with PCP Syncope and collapse 12/13/2017 Opioid dependence 10/19/2017 Allergic rhinitis 08/22/2017 Anxiety 07/07/2017 Chronic hepatitis C 01/25/2016 Overview (08/20/2024): Patient was treated at [facility] by ID. Records are in [facility]. Viral load negative for many years. He was treated back in 2017. Component Ref Range & Units 1 yr ago HCV RNA, QN Real Time PCR NOT DETECTED IU/mL <15 NOT DETECTED HCV RNA QN Real Time PCR NOT DETECTED Log IU/mL <1.18 NOT DETECTED Chronic alcoholism in remission 01/25/2016 Midline low back pain without sciatica 6 History of cholecystectomy 01/25/2016 Tobacco dependence 01/25/2016 Resolved Problems Problem Noted Date Diagnosed Date Resolved Date DOMINIQUE (dyspnea on exertion) 03/10/2023 Assessment & Plan (03/10/2023 2:04 PM EDT): r/o PAF or other arrhythmia. may need holter monitoring, pt is not using CPAP which may be triggering different arrhythmias order labs, hypothyroidism, etc. FU with PCP Weight loss 03/10/2023 08/20/2024 Assessment & Plan (03/10/2023 2:05 PM EDT): Pt has lost 80+ pounds within the past 6 months, due to history of HCV, needs to rule out liver malignancy Order abdominal CT scan and AFP FU with PCP to evaluate for further malignancy workup Jaw pain 03/07/2023 08/20/2024 Weakness of shoulder 03/07/2023 024 Tear of supraspinatus tendon 04/19/2021 08/20/2024 Epigastric pain 01/02/2019 08/20/2024 Knee pain 01/02/2019 08/20/2024 Vomiting 01/02/2019 08/20/2024 Drowsy 03/20/2018 08/20/2024 Tired 03/20/2018 08/20/2024 Snoring 03/20/2018 08/20/2024 Palpitations 01/17/2018 08/20/2024 Acute frontal sinusitis 09/15/201708/06 Foot pain 04/18/2016 08/20/2024 Abdominal pain 01/25/2016 08/20/2024 Opioid abuse 01/25/2016 08/20/2024 Encounters Date Type Department Care Team Description 12/26/[address] [facility] [address] [place], [place] [phone] NameBrandan MD 12/25/[address] [facility] [address] [place] [address] NameBrandan MD status 10/31/[address] [facility] [address] [place], [place] [phone] Carlos Wolf MA feb recalls 10/23/[address] [facility] [address] [place], [place] [phone] NameBrandan MD Depression, unspecified depression type from Last 3 Months Immunizations Name Administration Dates Next Due Hep A, Adult 04/19/2011,10/15/2010 Hep B, adult 04/19/2011,11/16/2010,10/15/2010 Influenza injectable quadriv alent preservative free 08/01/2019 Influenza, IIV3, injectable 07/25/2018, 1 Influenza, seasonal, injecta ble, preservative free 08/01/2017,07/07/2016,07/15/2015 Pneumococcal Polysaccharide PPSV23 08/12/2010 Tdap 08/17/2016 Zoster, Recombinant 06/06/2019 Social History Tobacco Use Types Packs/Day Years Used Date Smoking Tobacco: Every Day Cigars Smokeless Tobacco: Never Tobacco Cessation:Ready to Q uit: Not Asked; Counseling Given: Not Answered Alcohol Use Standard Drinks/Week Comments Never 0 (1 standard drink = 0.6 oz pur e alcohol) Housing Stability Answer Date Recorded What is your housing situation today? I have andres shepard 08/24/[address] you li ve. Do you have problems with any of the following? None of the above 08/24/2023 Food Insecurity Answer Date Recorded Within the past 12 months, y ou worried that your food would run out before you got money to buy more: Never True 08/24/2023 Within the past 12 months,th e food you bought just didn't last and you didn't have enough money to get more: Never True Transportation Answer Date Recorded In the past 12 months, has l ack of transportation kept you from medical appts, meetings, work or from getting things needed for daily living? No 08/24/2023 Utilities Answer Date Recorded In the past 12 months, has t he electric, gas, oil or water company threatened to shut off services in your home? No 08/24/2023 Depression Answer Date Recorded Patient Health Questionnaire-2 Score 0 03/10/2023 Sex and Gender Information Value Date Recorded Sex Assigned at Male 09/05/2022 10:17 AM EDT Legal Sex Male 10:17 AM EDT Gender Identity Male 09/05/2022 10:17 AM EDT Sexual Orientation Don't know 09/05/2022 10 :17 AM EDT Last Filed Vital Signs Vital Sign Reading Time Taken Comments Blood Pressure 155/98 09/12/2024 9:56 AM EST Pulse 97 09/12/2024 9:56 AM EST Temperature 36.2 ??C (97.1 ??F) 03/04/2024 10:00 AM E DT Respiratory Rate 14 09/12/2024 9:56 AM EST Oxygen Saturation 95% 09/12/2024 9:56 AM EST Inhaled Oxygen Concentration - - Weight 128 kg (283 lb) 09/12/2024 9:56 AM EST Height 188 cm (6' 2 ) 09/12/2024 9:56 AM EST Body Mass Index 36.34 09/12/2024 9:56 AM EST Plan of Treatment Upcoming Encounters Date Type Department Care Team (Late st Contact Info) Description 01/14/2025 1:15 PM EDT Office Visit [facility] [address] [place] [address] Name, MD Brandan [address] [place] [address] 02/11/2025 10:00 AM EDT Office [facility] [address] [facility] [place], [place] [phone] Name, MD Brandan [address] [facility] [place] [address] Health Maintenance Due Date Last Done Comments CT Colonography 1961 FIT DNA/Cologuard 1961 FIT 1961 FOBT 1961 Sigmoidoscopy 1961 Alcohol/Substance Use Screening 1973 Pneumococcal Vaccine: 50+ Years (2 of 2 - PCV) 08/12/2011 08/12/2010 Zoster Vaccines (2 of 2) 08/01/2019 06/06/2019 RSV Patients and Patients Aged 60 years or older (1 - Risk 60-74 years 1-dose series) 2021 Depression Screening 03/10/2024 03/10/2023, 03/10/20 23 SDOH Screening 03/10/2024 03/10/2023 COVID-19 Vaccine (2 - season) 2024 01/04/2022 Influenza Vaccine (#1) 2024 9, 08/01/2019, 07/25/2018, Additional history exists Tobacco Screening 09/12/2025 09/12/2024 DTaP/Tdap/Td Vaccines (2 - Td or Tdap) 08/17/2026 08/17/2016 Colonoscopy 01/28/2029 01/29/2024 Colorectal Cancer Screening 01/28/2029 Lipid Panel 03/05/2029 03/05/2024, 04/29/2022 Hepatitis A Vaccines Completed 04/19/2011, 10/15/20 10 Hepatitis B Vaccines Completed 04/19/2011, 11/16/2010, 10/15/2010 HIV Screening Completed 05/05/2023 HIB Vaccines Aged Out No longer eligi ble based on patient's age to complete this topic HPV Vaccines Aged Out No longer eligi ble based on patient's age to complete this topic IPV Vaccines Aged Out No longer eligi ble based on patient's age to complete this topic Meningococcal Vaccine Aged Out No monika christian eligible based on patient's age to complete this topic RSV under 20 months Aged Out No longe r eligible based on patient's age to complete this topic Rotavirus Vaccines Aged Out No longer eligible based on patient's age to complete this topic Procedures Procedure Name Priority Date/Time Associated Diagnosis Comments LIPID PANEL, STANDARD Routine 03/05/2024 9:18 AM EDT Weight gain HM COLONOSCOPY Routine 01/29/2024 HIV 1/2 ANTIGEN/ANTIBODY, FOURTH GENERATION W/RFL Routine 05/05/2023 9:58 AM EDT Weight loss from Last 3 Months or Most Recently Relevant to Health Maintenance Results * (ABNORMAL) Lipid Panel, Standard (03/05/2024 9:18 AM EDT) Triglycerides 52 <150 mg/dL [facility] Comment:Desirable Triglyceri de: less than 150 mg/dLBorderline High Triglyceride 150-199 mg/dLHigh Triglyceride: 200-499 mg/dLVery High Triglyceride: greater than or equal to 5OO mg/dL Cholesterol 173 <200 mg/dL [facility] Comment:Desirable Cholestero l: less than 200 mg/dLBorderline High Cholesterol: 200-239 mg/dLHigh Cholesterol: greater than 239 mg/dL LDL Cholesterol Calculated 113(H) <100 mg/dL [facility] Comment:Desirable LDL: less than 100 mg/dLNear Optimal/Above Optimal LDL: 110- 129 mg/dLBorderline High LDL: 130-159 mg/dLHigh LDL: 160-189 mg/dLVery High LDL: greater than or equal to 190 mg/dL HDL Cholesterol 50 >40 mg/dL [facility] Comment:Desirable HDL: great er than 40 mg/dL Note: This HDL assay may give artificially low results in patients with liver disease. Blood Venous blood specimen / Unknown 03/05/2024 9:18 AM EDT 03/05/2024 9:18 AM EDT us Brandan Harrison MD LAB BLOOD ORDERABLES Final Resul t [facility] [address] [place] [address] [phone] * (ABNORMAL) Hm Colonoscopy (01/29/2024) Colonoscopy Abnormal(A ) Normal Brandan Harrison MD HEALTH MAINTENANCE Edited Result - Final * HIV-1/2 Antigen and Antibodies, Fourth Generation, with Reflexes (05/05/2023 9:58 AM EDT) HIV Antigen/Antibody, 4th Generation NON-REAC TIVE NON-REAC TIVE [facility] Comment: HIV-1 antigen and HIV-1/HIV-2 antibodies were not detected. There is no laboratory evidence of HIV infection. PLEASE NOTE: This information has been disclosed to you from records whose confidentiality may be protected by state law. ??If your state requires such protection, then the state law prohibits you from making any further disclosure of the information without the specific written consent of the person to whom it pertains, or as otherwise permitted by law. A general authorization for the release of medical or other information is NOT sufficient for this purpose. ?? For additional information please refer to http://education.[employer]/faq/CLL205 (This link is being provided for informational/ educational purposes only.) The performance of this assay has not been clinically validated in patients less than 2 years old. Blood Venous blood specimen / Unknown 05/05/2023 9:58 AM EDT 05/05/2023 9:58 AM EDT Narrative [facility] - 05/10/2023 9:05 AM EDT FASTING:NO FASTING: NO us Leena Dodd MD LAB BLOOD ORDERABLES Fin al Result [facility] [address], [place] [address] [facility] [address] [place] [address] from Last 3 Months or Most Recently Relevant to Health Maintenance Insurance [address] [place], [place] [address]HEALTH STANDARD [employer] PPO Care Teams Big Data Hadoop Developer Relationship Specialty Start Date End Date Name, MD Brandan [address] [place] [address] PCP - General Family Medicine 12/15/15
--- OUTSIDE RECORDS SUMMARY | 2024-12-31 19:59 | XMS_ITS | Encounter Summary ---
Author Organization [employer] Address [address] [place] [address] Care Team Providers Care Risk Control Specialist Name Role Phone Name, Brandan HEATH Primary Care Provider [phone] Reason for Visit * Reason Onset Date Comments status 10/24/2022 Encounter Details Date Type Department Care Team ([facility] Contact Info) Description 10/24/2022 Telephone [facility] [address] [place], [place] [phone] Name, MD Brandan [address] [place] [address] status Social History Tobacco Use Types Packs/Day Years Used Date Smoking Tobacco: Never Assessed Sex and Gender Information Value Date Recorded Sex Assigned at Male 09/05/2022 10:17 AM EDT Legal Sex Male 10:17 AM EDT Gender Identity Male 09/05/2022 10:17 AM EDT Sexual Orientation Don't know 09/05/2022 10 :17 AM EDT documented as of this encounter Miscellaneous Notes * Telephone Encounter - Larissa Bass - 10/25/2022 11:14 AM EST Message left at [facility] following up on CMN form for Boost faxed * Telephone Encounter - Elie Strong - 10/25/2022 10:42 AM EST Tc from pt requesting status on script for boost send over to [facility] Please contact pt at [phone] documented in this encounter Plan of Treatment Upcoming Encounters Date Type Department Care Team (Late st Contact Info) Description 01/14/2025 1:15 PM EDT Office Visit [address] [address] Name, MD Brandan [address] [place] [address] 02/11/2025 10:00 AM EDT Office Visit [address] [address] Name, MD Brandan [address] [place] [address] documented as of this encounter Visit Diagnoses Not on filedocumented in this encounter Care Teams Risk Control Specialist Relationship Specialty Start Date End Date Name, MD Brandan [address] [place] [address] PCP - General Family Medicine 12/15/15 documented as of this encounter
--- OUTSIDE RECORDS SUMMARY | 2024-12-31 19:59 | XMS_ITS ---
Author Organization [facility] Address [address] [place] [address] Care Team Providers Care Preprint Analyst Name Role Phone Name Brandan HEATH Primary Care Provider Aldair Reyes [phone] REASON FOR VISIT screening Encounters Encounter Location Date Provider Diagnosis [facility] [place] Out[facility] [address] [place], [place] [phone] 11/01/2023 Aldair Waters PLAN OF TREATMENT No Information
--- OUTSIDE RECORDS SUMMARY | 2024-12-31 19:59 | XMS_ITS | Encounter Summary ---
Author Organization [employer] Address [address] [place] [address], [place] [address] Care Team Providers Care Power Plant Mechanic Name Role Phone Name, Brandan HEATH Primary Care Provider [phone] Encounter Details Date Type Department Care Team (Late st Contact Info) Description 11/09/[address] [phone] NameBrandan MD [address] [place] [phone] Social History Tobacco Use Types Packs/Day Years [...] Description 01/14/2025 1:15 PM EDT Office Visit [address] [address] Brandan Harrison MD [address] [place] [phone] 02/11/2025 10:00 AM EDT Office Visit [address] [address] Barndan Harrison MD [address] [place] [address] documented as of this encounter Visit Diagnoses Not on filedocumented in this encounter Care Teams Power Plant Mechanic Relationship Specialty Start Date End Date Name, MD Brandan [address] [place] [address] PCP - General Family Medicine 12/15/15 documented as of this encounter
--- OUTSIDE RECORDS SUMMARY | 2024-12-31 19:59 | XMS_ITS ---
Author Organization [facility] Address [address] [place] [address] Care Team Providers Care Babysitter Name Role Phone Name Brandan HEATH Primary Care Provider Aldair Reyes [phone] REASON FOR VISIT screening PROBLEMS Problem Type ICD Code Onset Dates Problem Status W/U Status Risk SNOMED Code Notes Problem Diverticulosis of large intestine without perforation or abscess without bleeding (K57.30) Active confirmed Diverticul ar disease of colon (034086726) Encounters Encounter Location Date Provider Diagnosis [facility] [place] [address] [place], [place] [phone] 01/29/2024 Aldair Waters Encounter for scre ening [...]
--- OUTSIDE RECORDS SUMMARY | 2024-12-31 19:59 | XMS_ITS | Encounter Summary ---
Author Organization [employer] Address [address] [place] [address], [place] [address] Care Team Providers Care Compliance Program Manager Name Role Phone Name, Brandan HEATH Primary Care Provider [phone] Encounter Details Date Type Department Care Team (Late st Contact Info) Description 10/28/2022 Orders Only [facility] [address] [place], [place] [phone] Krystina Michelle LPN Social History Tobacco Use Types Packs/Day Years [...] Description 01/14/2025 1:15 PM EDT Office Visit [address] [address] NameBrandan MD [address] [place] [address] 02/11/2025 10:00 AM EDT Office Visit [address] [phone] Brandan Harrison MD [address] [place] [address] documented as of this encounter Visit Diagnoses Not on filedocumented in this encounter Care Teams Compliance Program Manager Relationship Specialty Start Date End Date Name, MD Brandan [address] [place] [address] PCP - General Family Medicine 12/15/15 documented as of this encounter
--- OUTSIDE RECORDS SUMMARY | 2024-12-31 19:59 | XMS_ITS | Encounter Summary ---
Author Organization [facility] Address [address] [place] [address] Care Team Providers Care Processing Tech Name Role Phone Name, Brandan HEATH Primary Care Provider [phone] Reason for Visit * Reason Comments Shortness of Breath SOB, flu s/s, cough, H/A Encounter Details Date Type Department Care Team (Late st Contact Info) Description 12/21/2024 9:16 PM EST - 12/21/2024 10:22 PM EST [facility] Emergency [address] [place] [address] Influenza A (H5N1) (Primary Dx) Discharge Disposition: Home or Self Care Social History Tobacco Use Types Packs/Day Years Used Date Smoking Tobacco: Former Cigarettes Smokeless Tobacco: Current Comments:marijuana Alcohol Use Standard Drinks/Week Comments No 0 (1 standard drink = 0.6 oz pur e alcohol) Sex and Gender Information Value Date Recorded Sex Assigned at Male 12/21/2024 9:57 PM EST Legal Sex Male 10:02 PM EST Gender Identity Male 12/21/2024 9:57 PM EST Sexual Orientation Straight 12/21/2024 9: 57 PM EST documented as of this encounter Last Filed Vital Signs Vital Sign Reading Time Taken Comments Blood Pressure 148/72 12/21/2024 7:41 PM EST Pulse 80 12/21/2024 10:10 PM EST Temperature 37.1 ??C (98.8 ??F) 12/21/2024 7:41 PM ES T Respiratory Rate 20 12/21/2024 10:10 PM EST Oxygen Saturation 99% 12/21/2024 10:20 PM EST Inhaled Oxygen Concentration - - Weight 109 kg (240 lb) 12/21/2024 7:41 PM EST Height 182.9 cm (6') 12/21/2024 7:41 PM EST Body Mass Index 32.55 12/21/2024 7:41 PM EST documented in this encounter Functional Status * Are you deaf or do you have serious difficulty hearing? Answer Date of Assessment Author No 12/21/2024 9:26 PM EST Saida Kruger RN * Are you blind or do you have serious difficulty seeing, even when wearing glasses? Answer Date of Assessment Author No 12/21/2024 9:26 PM EST Saida Kruger RN * Do you have serious difficulty walking or climbing stairs? Answer Date of Assessment Author No 12/21/2024 9:26 PM EST Saida Kruger RN * Do you have serious difficulty dressing or bathing? Answer Date of Assessment Author No 12/21/2024 9:26 PM EST Saida Kruger RN * Because of a physical, mental, or emotional condition, do you have serious difficulty doing errandsalone such as visiting the doctor? Answer Date of Assessment Author No 12/21/2024 9:26 PM EST Saida Kruger RN documented as of this encounter Mental Status * Because of a physical, mental, or emotional condition, do you have serious difficulty concentrating, remembering, or making decisions? (5 years old or older) Answer Entry Date Author No 12/21/2024 9:26 PM EST Saida Kruger RN documented in this encounter Discharge Instructions * Discharge Instructions* BUTCH Sandhu - 12/21/2024 10:13 PM EST Rest and drink a lot of fluids. Continue the inhaler, 2 puffs 3-4 times per day as needed. Please use the inhaler with the spacer provided. Take Tamiflu twice a day for 7 days. Motrin or Tylenol as needed for pain. Follow-up with your primary care doctor. * Attachments The following attachments cannot be sent through Care Everywhere. * Influenza (Croatian) documented in this encounter Medications at Time of Discharge albuterol HFA (PROAIR HFA ; PROVENTIL HFA ; VENTOLIN HFA) 90 mcg/actuation inhaler Inhale 2 Puffs into the lungs 4 times daily as needed for Cough or Wheezing. 07/22/2015 albuterol HFA (PROAIR HFA ; PROVENTIL HFA ; VENTOLIN HFA) 90 mcg/actuation inhaler Inhale 1-2 puffs every 4-6 hours as needed for shortness of breath. 7 g 12/21/2024 6 buprenorphine-na loxone (SUBOXONE) 8-2 mg per SL tablet Place 2 Film under the tongue daily. buPROPion SR (WELLBUTRIN SR) 150 mg 12 hr tablet Take 1 tablet by mouth 2 times daily. 05/31/2021 cyclobenzaprine (FLEXERIL) 10 mg tablet Take 1 Tab by mouth 3 times daily as needed for Muscle spasms. 10/05/2015 esomeprazole (NexIUM) [address] capsule Take 1 Cap by mouth every morning (before breakfast). 09/22/2015 furosemide (LASIX) 20 mg tablet TAKE 1 TABLET BY MOUTH EVERY DAY 10/20/2014 gabapentin (NEURONTIN) 800 mg tablet Take 1 tablet by mouth 3 times daily. 05/31/2021 omeprazole (PriLOSEC) [address] capsule Take 40 mg by mouth daily. 05/03/2021 oseltamivir (TAMIFLU) 75 mg capsule Take 1 capsule (75 mg total) by mouth every 12 (twelve) hours for 5 days. 10 capsule 12/21/2024 5 documented as of this encounter Ordered Prescriptions Prescription Sig Dispense Quantity Refills Last Filled Start Date End Date albuterol HFA (PROAIR HFA ; PROVENTIL HFA ; VENTOLIN HFA) 90 mcg/actuation inhaler Inhale 1-2 puffs every 4-6 hours as needed for shortness of breath. 7 g 12/21/2024 6 oseltamivir (TAMIFLU) 75 mg capsule Take 1 capsule (75 mg total) by mouth every 12 (twelve) hours for 5 days. 10 capsule 12/21/2024 documented in this encounter Discharge Disposition Disposition Code Departure Means Destination Comment s Home or Self Care documented in this encounter Progress Notes * Gisela Caballero - 12/21/2024 10:04 PM EST An ambulation trial was attempted with the PT. He was unable to follow simple commands or instructions; Put on a face mask and We need to walk . The PT continued to try and place his face mask on top of his head and continued to request that his visitor and staff help with the face mask, saying that he never used a face mask before. He was also denying the ability to walk despite the PT standing and pacing in the room independently. Verbal directives were given several times and each time the PT responded with I can't breathe, I can't ma'am . PT speaking in clear and complete sentences with an O2 saturation ranging from 98-100 on RA. PT continues to endorse SOB but is requesting to leave. LATESHA Nhut and Saida aware. Gisela Federico 12/21/242208 * Yudi Houser RN - 12/21/2024 7:43 PM EST PT ARRIVES STEADY GAIT, COMPLAINS OF COYGH X 3 DAYS, NO CALL TO DR, NO OTC MEDS TAKEN, PT STATES HEFELT SOB, AND FEELS UNWELL, PT DENIES ANY OTHER SYMPTOMS OR COMPLAINTS, SPEAKS FULL SENTENCES IN TRIAGE, PRODUCTIVE COUGH IN TRIAGE, NO SOB ON EXERTION QUIT TOBACCO 15 WK AGO * Armaan Billingsley RN - 12/21/2024 6:56 PM EST BIBA from home c/o cough, headache, fatigue and SOB. Pt states he has difficulty breathing and usesand inhaler at home. Pt O2 98% on RA. * BUTCH Sandhu - 12/21/2024 6:52 PM EST Emergency Medicine Note Patient Name: Raudel Pemberton Initial Evaluation: 12/21/2024 : 1960 Patient's PCP: Brandan Harrison MD Emergency Physician: BUTCH Sandhu History of Present Illness Chief Complaint: Chief Complaint Patient presents with ??? Shortness of Breath SOB, flu s/s, cough, H/A HPI: 64-year-old male with a history of hypertension and question asthma complaining of headache body aches cough shortness of breath for the past 2 days. Patient has been using his inhaler without significant relief. Denies fever chest pain abdominal pain nausea vomiting. ROS: I have performed a ROS with the pertinent positives and negatives documented in the history ofpresent illness. Previous History Past Medical History: Diagnosis Date ??? Acute gastric ulcer without mention of hemorrhage or perforation, with obstruction(531.31) 04/27/2007 DX:Acute gastric ulcer without mention of hemorrhage or perforation, with obstruction(531.31) ??? Depressive disorder DX:Depressive disorder ??? Essential hypertension, benign 04/27/2007 DX:Essential hypertension, benign ??? Hepatitis C carrier (CMS/HCC) 04/27/2007 DX:Hepatitis C carrier (HCC) ??? Iron deficiency anemia, unspecified 04/27/2007 DX:Iron deficiency anemia, unspecified ??? Pain in limb 04/27/2007 DX:Pain in limb ??? Tobacco use disorder 04/27/2007 DX:Tobacco use disorder Past Surgical History: Procedure Laterality Date ??? CHOLECYSTECTOMY PROCEDURE: HISTORICAL CHOLECYSTECTOMY ??? COLONOSCOPY 2012 PROCEDURE: WI COLONOSCOPY FLX DX W/COLLJ SPEC WHEN PFRMD; COMMENT: normal ??? SHOULDER ARTHROSCOPY Right 08/31/2021 PROCEDURE: WI SURGICAL ARTHROSCOPY SHOULDER W/LSS&RESCJ ADS; COMMENT: Right shoulder Subacromial Decompression, Rotator Cuff Repair, Labral Debridement and Rotator Cuff Augmentation with bioinductive implant with Dr. Billings ??? STOMACH SURGERY PROCEDURE: WI UNLISTED PROCEDURE STOMACH; COMMENT: bariatric surgery and reversal Social History Tobacco Use ??? Smoking status: Former Current packs/day: 1.50 Types: Cigarettes ??? Smokeless tobacco: Current ??? Tobacco comments: marijuana Substance Use Topics ??? Alcohol use: No ??? Drug use: Yes Frequency: 5.0 times per week Types: Marijuana/Cannabis Comment: 5 per day No family history on file. is allergic to adhesive and ibuprofen. No current facility-administered medications on file prior to encounter. Current Outpatient Medications on File Prior to Encounter Medication Sig Dispense Refill ??? albuterol HFA (PROAIR HFA ; PROVENTIL HFA ; VENTOLIN HFA) 90 mcg/actuation inhaler Inhale 2 Puffs into the lungs 4 times daily as needed for Cough or Wheezing. ??? buprenorphine-naloxone (SUBOXONE) 8-[address] tablet [address] 2 Film under the tongue daily. ??? buPROPion SR (WELLBUTRIN SR) 150 mg 12 hr tablet Take 1 tablet by mouth 2 times daily. ??? cyclobenzaprine (FLEXERIL) 10 mg tablet Take 1 Tab by mouth 3 times daily as needed for Muscle spasms. ??? esomeprazole (NexIUM) [address] capsule Take 1 Cap by mouth every morning (before breakfast). ??? furosemide (LASIX) 20 mg tablet TAKE 1 TABLET BY MOUTH EVERY DAY ??? gabapentin (NEURONTIN) 800 mg tablet Take 1 tablet by mouth 3 times daily. ??? omeprazole (PriLOSEC) [address] capsule Take 40 mg by mouth daily. Physical Exam ED Triage Vitals [12/21/241940] Temp Heart Rate Resp BP 37.1 ??C (98.8 ??F) 72 20 (!) 148/72 SpO2 Temp Source Heart Rate Source Patient Position 98 % Temporal Other (Comment) Sitting BP Location FiO2 (%) -- -- General: Well-appearing, well nourished, in no acute distress HEENT: PERRL, EOMI, external ears and nose appear unremarkable, airway is patent Neck: Supple, full range of motion Chest: Diminished throughout but speaking full sentences no hypoxia Circulatory: RRR, extremities well perfused Abdomen: Non-distended, Non-Tender Extremities: Normal ROM, No edema no posterior calf tenderness Skin: Warm and dry Neuro: Alert and oriented, no focal deficits Results Labs Reviewed [id number], RSV, FLU A AND B QUALITATIVE RT-PCR, INTERNAL LAB - Abnormal Result Value Influenza A PCR Detected (*) Influenza B PCR Not Detected RSV PCR Not Detected SARS COV-2 Not Detected Narrative: Disclaimer: Testing was performed using the [employer] GeneXpert Xpress SARS-CoV-2 _Flu_RSV PLUS PCR assay. The manner in which this information is used to guide patient care is the responsibility of the healthcare provider. Results should be correlated with the clinical history, epidemiological data,and other data available to the clinician evaluating the patient. Negative results do not preclude infection. This test has been authorized by the FDA under an Emergency Use Authorization (EUA). Thistest is only authorized for the duration of time the declaration that circumstances exist justifying the authorization of the emergency use of in vitro diagnostic tests for detection of SARS-CoV-2 virus and/or diagnosis of COVID-19 infection under section 564 (b) (1) of the Act, 21 U.S.C 360bbb-3 (b) (1), unless the authorization is terminated or revoked sooner. Reference Range: Not Detected Fact sheet for Healthcare providers can be found at https://www.fda.gov/media/464794/download. Fact sheet for Healthcare patients can be found at https://www.fda.gov/media/145853/download. Abnormal Labs Reviewed [id number], RSV, FLU A AND B QUALITATIVE RT-PCR, INTERNAL LAB - Abnormal; Notable for the following components: Result Value Influenza A PCR Detected (*) All other components within normal limits Narrative: Disclaimer: Testing was performed using the [employer] GeneXpert Xpress SARS-CoV-2 _Flu_RSV PLUS PCR assay. The manner in which this information is used to guide patient care is the responsibility of the healthcare provider. Results should be correlated with the clinical history, epidemiological data,and other data available to the clinician evaluating the patient. Negative results do not preclude infection. This test has been authorized by the FDA under an Emergency Use Authorization (EUA). Thistest is only authorized for the duration of time the declaration that circumstances exist justifying the authorization of the emergency use of in vitro diagnostic tests for detection of SARS-CoV-2 virus and/or diagnosis of COVID-19 infection under section 564 (b) (1) of the Act, 21 U.S.C 360bbb-3 (b) (1), unless the authorization is terminated or revoked sooner. Reference Range: Not Detected Fact sheet for Healthcare providers can be found at https://www.fda.gov/media/940769/download. Fact sheet for Healthcare patients can be found at https://www.fda.gov/media/906613/download. XR Chest 2 Views ED Interpretation No infiltrate I have discussed the incidental/abnormal imaging and/or lab abnormalities with the patient and haveinstructed them the need for further evaluation and workup with their primary care doctor. I have provided the patient with a paper copy of the abnormality. The laboratory results, imaging results and other diagnostic exam results were reviewed in the EMR. EKG Interpretation Critical Care Time None Medical Decision Making Medications oseltamivir (TAMIFLU) capsule 75 mg (has no administration in time range) ipratropium-albuteroL (DUONEB) 0.5-2.5 mg/3 mL nebulizer solution 3 mL (has no administration in time range) Patient was evaluated. Symptoms have been present for 2 days. Viral swab is positive for influenza A. DuoNeb respiratory treatment and Tamiflu. Clinical Impressions as of 12/21/242211 Influenza A (H5N1) Has improved air movement after the DuoNeb respiratory treatment. He is still complaining of feeling short of breath. He ambulated short distance no evidence of hypoxia. With his persistent complaintof shortness of breath I wanted him to stay so that we can do a larger workup such as blood work EKG and possibly CAT scan of the chest. Patient declined. He will be discharged with Tamiflu and an inhaler. Procedures Procedures Diagnosis No diagnosis found. Influenza Disposition Data Unavailable Discharge ED Prescriptions None Physician Attestation BUTCH Sandhu 12/21/242147 BUTCH Sandhu 12/21/242211 Cosigned by Arnie Fontaine MD at 12/22/2024 11:38 PM EST documented in this encounter Plan of Treatment Not on file documented as of this encounter Procedures Procedure Name Priority Date/Time Associated Diagnosis Comments XR CHEST 2 VIEWS STAT 12/21/2024 7:55 PM EST [id number], RSV, FLU A AND B QUALITATIVE RT-PCR, INTERNAL LAB STAT 12/21/2024 7:38 PM EST documented in this encounter Results * XR Chest 2 Views (12/21/2024 7:55 PM EST) Anatomical Region Laterality Modality Body Radiographic Mary ging 12/22/2024 11:0 2 AM EST Impressions 12/22/2024 11:02 AM EST FINDINGS/IMPRESSION: NO ACUTE FINDINGS. Stable heart size without congestive heart failure. ??Mild hyperinflation. ??No consolidation or effusion. ??No acute osseous abnormality. -------- FINAL REPORT -------- Dictated By: Margarita Anglin Dictated Date: 12/22/2024 11:02 ET Assigned Physician: Margarita Anglin Reviewed and Electronically Signed By: Margarita Anglin Signed Date: 12/22/2024 11:02 ET Workstation ID: [id number] Transcribed By: Self Edit Transcribed Date: 12/22/2024 11:02 ET Narrative 12/22/2024 11:02 AM EST XR CHEST 2 VIEWS INDICATION: Cough, persistent COUGH X 3 DAYS, SPEAKS FULL SENTENCES TECHNIQUE: XR CHEST 2 VIEWS COMPARISON: 08/25/2024 Procedure Note Margarita Anglin MD - 12/22/2024 XR CHEST 2 VIEWS INDICATION: Cough, persistent COUGH X 3 DAYS, SPEAKS FULL SENTENCES TECHNIQUE: XR CHEST 2 VIEWS COMPARISON: 08/25/2024 IMPRESSION: FINDINGS/IMPRESSION: NO ACUTE FINDINGS. Stable heart size without congestive heart failure. Mild hyperinflation.No consolidation or effusion. No acute osseous abnormality. -------- FINAL REPORT -------- Dictated By: Margarita Anglin Dictated Date: 12/22/2024 11:02 ET Assigned Physician: Margarita Anglin Reviewed and Electronically Signed By: Margarita Anglin Signed Date: 12/22/2024 11:02 ET Workstation ID: [id number] Transcribed By: Self Edit Transcribed Date: 12/22/2024 11:02 ET us Arnie Fontaine MD IMG XR PROCEDURES Final R esult * (ABNORMAL) [id number], RSV, Influenza A and B qualitative RT-PCR (12/21/2024 7:38 PM EST) Influenza A PCR Detected(A) Not Detected LAB MICROBIOLOGY METHOD 12/21/2024 8:32 PM EST [facility] Comment:This patient is posi tive for influenza A. If the patient is admitted, please order the Respiratory Virus Panel PCR (Epic ID: [id number]) so our lab can subtype the influenza A, per CDC recommendations. Influenza B PCR Not Detected Not Detected LAB MICROBIOLOGY METHOD 12/21/2024 8:32 PM EST [facility] RSV PCR Not Detected Not Detected LAB MICROBIOLOGY METHOD 12/21/2024 8:32 PM EST [facility] SARS COV-2 Not Detected Not Detected LAB MICROBIOLOGY METHOD 12/21/2024 8:32 PM [facility] Swab Both anterior nares / Unknown Non-blood Collection / Unknown 12/21/2024 7:38 PM EST 12/21/2024 7:51 PM EST Narrative [facility] - 12/21/2024 8:32 PM EST Disclaimer: ??Testing was performed using the [employer] GeneXpert Xpress SARS-CoV-2 _Flu_RSV PLUS PCR assay. ??The manner in which this information is used to guide patient care is the responsibility of the healthcare provider. ??Results should be correlated with the clinical history, epidemiological data, and other data available to the clinician evaluating the patient. ??Negative results do not preclude infection. ??This test has been authorized by the FDA under an Emergency Use Authorization (EUA). ??This test is only authorized for the duration of time the declaration that circumstances exist justifying the authorization of the emergency use of in vitro diagnostic tests for detection of SARS-CoV-2 virus and/or diagnosis of COVID-19 infection under section 564 (b) (1) of the Act, 21 U.S.C 360bbb-3 (b) (1), unless the authorization is terminated or revoked sooner. ?? Reference Range: Not Detected Fact sheet for Healthcare providers can be found at https://www.fda.gov/media/171757/download. ?? Fact sheet for Healthcare patients can be found at https://www.fda.gov/media/124744/download. Arnie Fontaine MD LAB MICROBIOLOGY - GENERA L ORDERABLES Final Result [facility] ([facility] [address] [place] [address], documented in this encounter Visit Diagnoses Diagnosis Influenza A (H5N1)- Primary Influenza due to identified nan influenza virus documented in this encounter Administered Medications Inactive Administered Medications - up to 3 most recent administrations Medication Order MAR Action Action Date Dose Rate Site ipratropium-albuteroL (DUONEB) 0.5-2.5 mg/3 mL nebulizer solution 3 mL 3 mL, nebulization, Once, On 12/21/24 at 8, For 1 dose Given 12/21/2024 9:34 PM EST 3 mL oseltamivir (TAMIFLU) capsule 75 mg 75 mg, oral, 2 times daily, First dose on 12/21/24 at 2128, For 5 days, Indication: Influenza oseltamivir (TAMIFLU) capsule 75 mg 75 mg, oral, Once, On 12/21/24 at 2208, For 1 dose, Indication: Influenza Given 12/21/2024 10:11 PM EST 75 mg documented in this encounter Active and Recently Administered Medications Times are shown in EST. Scheduled Medication Order 12/19/2024 12/20/2024 12/21/2024 ipratropium-albuteroL (DUONEB) 0.5-2.5 mg/3 mL nebulizer solution 3 mL (COMPLETED) 3 mL, nebulization, Once, On 12/21/24 at 8, For 1 dose 2133 (Given - Provid er: Saida Kruger RN) oseltamivir (TAMIFLU) capsule 75 mg 75 mg, oral, 2 times daily, First dose on 12/21/24 at 8, For 5 days, Indication: Influenza 2210 (Not Given - Pr ovider: Saida Kruger RN - Reason: Other - Comment: med already given) oseltamivir (TAMIFLU) capsule 75 mg (COMPLETED) 75 mg, oral, Once, On 12/21/24 at 2208, For 1 dose, Indication: Influenza 2211 (Given - Provid er: Saida Kruger RN) documented in this encounter Orders Medications Ordered That Cristian ht Not Have Been Administered Count Last Ordered Date First Ordered Date oseltamivir (TAMIFLU) capsule 75 mg 1 12/21 documented in this encounter Additional Health Concerns Infection Onset Date Last Indicated Resolved Time Influenza 12/21/2024 12/21/2024 documented as of this encounter Care Teams Processing Tech Relationship Specialty Start Date End Date Name, MD Brandan [address] [place], [place] PCP - General 04/20/07 documented as of this encounter
--- OUTSIDE RECORDS SUMMARY | 2024-12-31 19:59 | XMS_ITS | Encounter Summary ---
Author Organization [employer] Address [address] [facility] [address] [place] [address] Care Team Providers Care Food Service Hotel Runner Name Role Phone Name, Brandan HEATH Primary Care Provider [phone] Reason for Visit * Reason Comments Med Refill Encounter Details Date Type Department Care Team ([facility] st Contact Info) Description 12/26/2024 Refill [facility] [address], [place] [phone] Name, MD Brandan [address] [place] [address] Social History Tobacco Use Types Packs/Day Years [...] t he electric, gas, oil or water [employer] threatened to shut off services in your [...] Description 01/14/2025 1:15 PM EDT Office Visit [address] [address] NameBrandan MD [address] [place] [phone] 02/11/2025 10:00 AM EDT Office Visit [address] [address] NameBrandan MD [address] [place] [phone] documented as of this encounter Visit Diagnoses Not on filedocumented in this encounter Care Teams Food Service Hotel Runner Relationship Specialty Start Date End Date NameBrandan MD [address] [place] [phone] PCP - General Family Medicine 12/15/15 documented as of this encounter
--- OUTSIDE RECORDS SUMMARY | 2024-12-31 19:59 | XMS_ITS | Encounter Summary ---
Author Organization [employer] Address [address] [facility] [address] [place] [address] Care Team Providers Care Microchip Specialist Name Role Phone Name, Brandan HEATH Primary Care Provider [phone] Reason for Visit * Reason Onset Date Comments status 12/25/2024 Encounter Details Date Type Department Care Team ([facility] Contact Info) Description 12/25/2024 Telephone [facility] [address] [place] [address] [phone] Name, MD Brandan [address] [place] [phone] status Social History Tobacco Use Types Packs/Day [...] encounter Miscellaneous Notes * Telephone Encounter - Reena Bhatti RN - 12/25/2024 2:11 PM EST TC to pt for status check, pt inpatient for shortness of breath, influenza A. Pt states he is weak but improving, taking rep treatments as ordered, denies acute shortness of breath. Po intake fair. Pt denies any complaints or issues at this time. HDF appt scheduled for 1:15 pm. documented in this encounter Plan of Treatment Upcoming Encounters Date Type Department Care Team (Late st Contact Info) Description 01/14/2025 1:15 PM EDT Office Visit [facility] [address] [place] [phone] Brandan Harrison MD [address] [place] [address] 02/11/2025 10:00 AM EDT Office Visit [facility] [address] [place] [phone] NameBrandan MD [address] [place] [phone] documented as of this encounter Visit Diagnoses Not on filedocumented in this encounter Care Teams Microchip Specialist Relationship Specialty Start Date End Date Brandan Harrison MD [address] [place] [phone] PCP - General Family Medicine 12/15/15 documented as of this encounter
--- OUTSIDE RECORDS SUMMARY | 2024-12-31 19:59 | XMS_ITS | Clinical Summary ---
Author Organization [address] [place] [address] [place] [id number] Phone Care Team Providers Care Supervisor Fish Processing Name Role Phone Name, Brandan HEATH Primary Care Provider [phone] Allergies Active Allergy Reactions Criticality Noted Date Comments Adhesive 10/22/2014 Other Reaction(s): Rash/Dermatitis Ibuprofen 04/27/2007 jade banks Medications omeprazole (PriLOSEC) [address] capsule Take 40 mg by mouth daily. 1 Active gabapentin (NEURONTIN) 800 mg tablet Take 1 tablet by mouth 3 times daily. 1 Active buPROPion SR (WELLBUTRIN SR) 150 mg 12 hr tablet Take 1 tablet by mouth 2 times daily. 1 Active cyclobenzaprine (FLEXERIL) 10 mg tablet Take 1 Tab by mouth 3 times daily as needed for Muscle spasms. 5 Active esomeprazole (NexIUM) [address] capsule Take 1 Cap by mouth every morning (before breakfast). 5 Active albuterol HFA (PROAIR HFA ; PROVENTIL HFA ; VENTOLIN HFA) 90 mcg/actuation inhaler Inhale 2 Puffs into the lungs 4 times daily as needed for Cough or Wheezing. 5 Active furosemide (LASIX) 20 mg tablet TAKE 1 TABLET BY MOUTH EVERY DAY 4 Active buprenorphine-n aloxone (SUBOXONE) 8-[address] tablet [address] 2 Film under the tongue daily. Active albuterol HFA (PROAIR HFA ; PROVENTIL HFA ; VENTOLIN HFA) 90 mcg/actuation inhaler Inhale 1-2 puffs every 4-6 hours as needed for shortness of breath. 7 g 5 12/21/19 26 Active oseltamivir (TAMIFLU) 75 mg capsule Take 1 capsule (75 mg total) by mouth every 12 (twelve) hours for 5 days. 10 capsule 5 12/26/19 25 Active Problems Problem Noted Date Diagnosed Date Venous insufficiency 10/20/2014 Asthma 05/15/2014 Morbid obesity 01/09/2014 Chronic cholecystitis 06/25/2012 Overview (09/25/2024): S/p cholecystectomy CTS (carpal tunnel syndrome) 09/01/2011 Depression 09/01/2011 Gallstone 08/12/2010 Insomnia 08/12/2010 Cocaine abuse, episodic use 03/16/2009 Alcoholism 07/25/2008 Bipolar affective disorder 07/25/2008 Jaw pain 07/25/2008 Overview (09/25/2024): Historical jaw fracture Acute gastric ulcer 04/27/2007 Overview (09/25/2024): WITHOUT MENTION OF HEMORRHAGE OR PERFORATION Related to gastric bypass IMO update Chronic hepatitis C virus infection 04/27/2007 Overview (09/25/2024): Chronic hepatitis C without mention of hepatic coma Genotype 1B (2003) and pos viral load (2013). Lumbago 04/27/2007 Urinary frequency 04/27/2007 Peripheral neuropathy 04/27/2007 Encounters Date Type Department Care Team Description 12/21/2024 9:16 PM EST - 12/21/2024 10:22 PM EST Emergency [facility] Emergency [address] [place] [address] Influenza A (H5N1) (Primary Dx) Discharge Disposition: Home or Self Care 10/10/2024 1:00 PM EST Ancillary Procedure [facility] [address] [place] [address] Shortness of breath; Other specified abnormal findings of blood chemistry from Last 3 Months Immunizations Name Administration Dates Next Due Hepatitis A Adult (Havrix; V aqta) 19yo and older 04/19/2011,10/15/2010 Hepatitis B (Qujvyjt-Y-Cuckh , Recombivax HB-Adult) 19yo and older 04/19/2011,11/16/2010,10/15/2010 Influenza trivalent, 0.5mL, preservative free (Fluarix; FluLaval; Fluzone) ages 6mo and older (Afluria) 3 years and older 07/15/2015,09/01/2011 Pneumococcal polysaccharide 23 valent (Pneumovax 23) 2yo and older 08/12/2010 Surgical History Surgery Date Site/Laterality Comments STOMACH SURGERY PROCEDURE: NM UNLISTED PROCEDURE STOMACH; COMMENT: bariatric surgery and reversal COLONOSCOPY 2012 PROCEDURE: NM COLONOSCOPY FLX DX W/COLLJ SPEC WHEN PFRMD; COMMENT: normal CHOLECYSTECTOMY PROCEDURE: HISTORICAL CHOLECYSTECTOMY SHOULDER ARTHROSCOPY 08/31/2021 Right PROCEDURE: NM SURGICAL ARTHROSCOPY SHOULDER W/LSS&RESCJ ADS; COMMENT: Right shoulder Subacromial Decompression, Rotator Cuff Repair, Labral Debridement and Rotator Cuff Augmentation with bioinductive implant with Dr. Billings Medical History Medical History Date Comments Essential hypertension, benign 04/27/2007 D X:Essential hypertension, benign Hepatitis C carrier (CMS/HCC) 04/27/2007 DX :Hepatitis C carrier (HCC) Acute gastric ulcer without mention of hemorrhage or perforation, with obstruction(531.31) 04/27/2007 DX:Acute gastric ulcer witho ut mention of hemorrhage or perforation, with obstruction(531.31) Iron deficiency anemia, unspecified 04/27/2007 DX:Iron deficiency anemia, unspecified Tobacco use disorder 04/27/2007 DX:Tobacco use disorder Pain in limb 04/27/2007 DX:Pain in limb Depressive disorder DX:Depressiv e disorder Social History Tobacco Use Types Packs/Day Years Used Date Smoking Tobacco: Former Cigarettes Smokeless Tobacco: Current Tobacco Cessation:Ready to Q uit: Not Asked Comments:marijuana Alcohol Use Standard Drinks/Week Comments No 0 (1 standard drink = 0.6 oz pur e alcohol) Sex and Gender Information Value Date Recorded Sex Assigned at Male 12/21/2024 9:57 PM EST Legal Sex Male 10:02 PM EST Gender Identity Male 12/21/2024 9:57 PM EST Sexual Orientation Straight 12/21/2024 9: 57 PM EST Obstetrics History Last Filed Vital Signs Vital Sign Reading [...] Mass Index 32.55 12/21/2024 7:41 PM EST Plan of Treatment Health Maintenance Due Date Last Done Comments Pneumococcal Vaccine: 50+ Years (2 of 2 - PCV) 08/12/2011 08/12/2010 Pneumococcal Vaccine: Pediatrics (0 to 5 Years) and At-Risk Patients (6 to 64 Years) (2 of 2 - PCV) 08/12/2011 08/12/2010 Zoster Vaccines (2 of 2) 08/01/2019 06/06/2019 RSV Immunization Patients 60+ Years Old (1 - Risk 60-74 years 1-dose series) 2021 Colorectal Cancer Screening: Colonoscopy 10/15/2022 Depression Screening 10/15/2022 Medicare Annual Wellness Visit 10/15/2022 Social Influencers of Health Screening 10/15/2022 COVID-19 Vaccine ( season) 2024 01/04/2022 Influenza Vaccine (#1) 2024 9, 07/25/2018, 08/01/2017, Additional history exists DTaP,Tdap,and Td Vaccines (2 - Td or Tdap) 08/17/2026 08/17/2016 Cholesterol Screening (Lipid Panel) 03/05/2029 03/05/2024, 08/13/2010 Hepatitis C Screening Completed 01/01/2004 Hepatitis A Vaccines Completed 04/19/2011, 10/15/20 Hepatitis B Vaccines Completed 04/19/2011, 11/16/2010, 10/15/2010 HIV Screening Completed 05/05/2023, 08/13/2010 HIB Vaccines Aged Out No longer eligi ble based on patient's age to complete this topic HPV Vaccines Aged Out No longer eligi ble based on patient's age to complete this topic IPV Vaccines Aged Out No longer eligi ble based on patient's age to complete this topic MMR Vaccines Aged Out No longer eligi ble based on patient's age to complete this topic Meningococcal ACWY Vaccine Aged Out N o longer eligible based on patient's age to complete this topic Meningococcal B Vacine Aged Out No lo nger eligible based on patient's age to complete this topic RSV Immunization Patients Under 20 months Aged Out No longer eligible based on patient's age to complete this topic Varicella Vaccines Aged Out No longer eligible based on patient's age to complete this topic Procedures Procedure Name Priority Date/Time Associated Diagnosis Comments XR CHEST 2 VIEWS STAT 12/21/2024 7:55 PM EST [id number], RSV, FLU A AND B QUALITATIVE RT-PCR, INTERNAL LAB STAT 12/21/2024 7:38 PM EST NM LEXISCAN STRESS TEST W/ MYOCARDIAL PERFUSION Routine 10/10/2024 3:50 PM EST Shortness of breath Other specified abnormal findings of blood chemistry HIV SCREENING Routine 08/13/2010 LIPID PANEL Routine 08/13/2010 HEPATITIS C SCREENING Routine 01/01/2004 from Last 3 Months or Most Recently Relevant to Health Maintenance Results * XR Chest 2 Views (12/21/2024 [...] Signed Date: 12/22/2024 11:02 ET Workstation ID: [id number] Transcribed By: Self Edit Transcribed Date: 12/22/2024 [...] Signed Date: 12/22/2024 11:02 ET Workstation ID: [id number] Transcribed By: Self Edit Transcribed Date: 12/22/2024 11:02 ET us Arnie Fontaine MD IMG XR PROCEDURES Final R esult * (ABNORMAL) [id number], RSV, Influenza A and B qualitative RT-PCR (12/21/2024 7:38 PM EST) Influenza A PCR Detected(A) Not Detected LAB MICROBIOLOGY METHOD 12/21/2024 8:32 PM EST [facility] Comment:This patient is posi tive for influenza A. If the patient is admitted, please order the Respiratory Virus Panel PCR ([facility] ID: [id number]) so our lab can subtype the influenza A, per CDC recommendations. Influenza B PCR Not Detected Not Detected LAB MICROBIOLOGY METHOD 12/21/2024 8:32 PM EST [facility] RSV PCR Not Detected Not Detected LAB MICROBIOLOGY METHOD 12/21/2024 8:32 PM EST [facility] SARS COV-2 Not Detected Not Detected LAB MICROBIOLOGY METHOD 12/21/2024 8:32 PM EST [facility] Swab Both anterior nares / Unknown Non-blood Collection / Unknown 12/21/2024 7:38 PM EST 12/21/2024 7:51 PM EST Narrative [facility] - 12/21/2024 8:32 PM EST Disclaimer: ??Testing was performed using the [employer] GeneXpert Xpress SARS-CoV-2 _Flu_RSV PLUS PCR assay. [...] for Healthcare providers can be found at https://www.fda.gov/media/488956/download. ?? Fact sheet for Healthcare patients can be found at https://www.fda.gov/media/179348/download. us Arnie Fontaine MD LAB MICROBIOLOGY - GENERA L ORDERABLES Final Result [facility] [address] [place] [address], * NM LEXISCAN STRESS TEST W/ MYOCARDIAL PERFUSION (10/10/2024 3:50 PM EST) Exercise/inject ion duration (min) 0 CV PACS STRESS Exercise/inject ion duration (sec) 45 CV PACS STRESS Peak SBP 125 mmHg CV PACS STRESS Peak DBP 99 mmHg CV PACS STRESS Peak HR 85 bpm CV PACS STRESS Baseline HR 65 bpm CV PACS STRESS Baseline SBP 125 mmHg CV PACS STRESS Baseline DBP 99 mmHg CV PACS STRESS Estimated workload 1.0 METS CV PACS STRESS Percent HR 54 % CV PACS STRESS Rate Pressure Product 10,625.0 mmHg*bpm CV PACS STRESS Target HR 133 b[address] PACS STRESS [address] Depression (mm) 0 mm CV PACS STRESS BSA 2.62 m2 CV PACS STRESS TID 1.09 CV PACS STRESS Nuc Stress EF 69 % CV PAC S STRESS Nuc Rest EF 64 % CV PACS STRESS Anatomical Region Laterality Modality Nuclear Medicine 10/10/2024 2:13 PM EST 10/10/2024 2:44 PM EST Impressions 10/11/2024 10:53 AM EST Abnormal Regadenoson stress test with nuclear imaging. ?? No chest pain or EKG changes consistent with ischemia. Nuclear imaging revealed ??small, moderate, mostly fixed perfusion defect of the anteroseptal, anteroapical and apical salvador most consistent with infarct. There is a normal TID ratio. Gated SPECT imaging was performed and revealed an LVEF of 64 %. Narrative 10/11/2024 10:53 AM EST Nuclear imaging of the left ventricle shows a normal cavity size. Myocardial perfusion imaging of the left ventricle reveals A small, moderate, mostly fixed perfusion defect of the anteroseptal, anteroapical and apical salvador. Gated SPECT imaging was performed which demonstrated normal left ventricular systolic function. There is hypokinesis of the aforementioned wall segments. The calculated LVEF is 64 %. TID ratio is normal. Stress Findings A pharmacological stress test was performed using regadenoson, 0.4 mg IV over 10-15 seconds, followed by radiopharmacological injection 10 seconds post infusion. Total stress time was 0 min and 45 sec. The patient reached the end of the protocol. Blood pressure demonstrated a normal response. Heart rate demonstrated a normal response. The patient reported no symptoms during the stress test. ECG 64-year-old male with obesity and daily cigar smoking with recent admission with respiratory failure in the setting of respiratory infection with elevated troponins felt to be due to demand ischemia. Patient is unable to walk on the treadmill. The ECG shows sinus bradycardia rate 58 bpm with right bundle branch block. There were no arrhythmias during stress. There is no ST segment changes during stress. There were no arrhythmias during recovery. Physiologic response to regadenoson Nuclear Study Quality Study technique: MPI, SPECT, multi, rest and stress, 1 day. Overall image quality is good. CT attenuation correction was utilized. No radiopharmaceutical dose was extravasated. The time from injection to rest imaging is 40 mins. The time from injection to stress imaging is 60 mins. Stress Function Comments Stress ejection fraction is 69%. Rest Function Comments Resting ejection fraction was 64%. Result [facility] Mauricio Crystal MD CV STRESS PROCEDURES F inal Result * HIV Screening (08/13/2010) [facility] HIV Screening Abstracted Result [facility] Provider HEALTH MAINTENANCE Final Result * (ABNORMAL) Lipid panel (08/13/2010) [facility] LDL/HDL Ratio 6(A) 0 - 4 Triglycerides 156(A) 0 - 150 mg/dL Cholesterol 216(A) 0 - 200 mg/dL HDL 35(A) >=40 mg/dL LDL Cholesterol 150(A) 0 - 100 mg/dL Blood Venous blood specimen / Unknown Result [facility] Provider LAB BLOOD ORDERABLES Zeynep l Result * Hepatitis C Screening (01/01/2004) 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
[2024-12-31 20:51] LABS: Troponin-I High Sensitivity 8.2 ng/L (<3.5-35.0)
[2024-12-31 21:15] LABS: Ammonia 70 umol/L (13-55)
[2024-12-31 22:34] VITALS: BP 138/80; PULSE 97; RESP 20; TEMP 36.9; O2SAT 98
[2024-12-31] MEDS: 0.9 % Sodium Chloride 1,000 ML 999 ML IV (22:41)
[2024-12-31] MEDS: Enoxaparin Sodium 40 MG/0.4 ML SYRINGE SUBCUT (22:43)
[2024-12-31] MEDS: Aspirin Enteric Coated 81 MG TABLET.DR PO (22:43)
[2024-12-31] MEDS: Lactulose 20 GM/30 ML SOLUTION 10 GM PO (22:44)
--- NOTE | 2024-12-31 22:55 | P.HPHOSP_ITS ---
History of Present Illness Date of Service: 12/31/24 Attending physician on admission: Ivet Chavarria Chief Complaint: AMS, nausea, vomiting, diarrhea patient is a 64-year-old male with a past medical history significant for alcohol abuse, substance use disorder, Maddy-en-Y gastric bypass, hepatitis-C, intussusception and GERD, presented to the ED due to nausea, vomiting and diarrhea for the past week with tactile fevers and abdominal discomfort as well as altered mental status for the past 2 days. He denies any alcohol use recently. He also denies any urinary incontinence or gait difficulties but has had some blurry vision. Reports generalized abdominal discomfort and ? right upper quadrant sharp pain. Due to his confusion history is hard to obtain. Review of Systems 2 Constitutional: Constitutional: Denies body ache(s), Denies chills, Denies fatigue, Reports fever(s), Denies frequent falls and Denies headache(s) Eyes: Eyes: Reports blurry vision, Reports change in vision and Denies photophobia ENT: Denies headache(s), Denies nasal congestion, Denies nasal discharge, Denies disequilibrium and Denies sore throat Cardiovascular: Cardiovascular: Denies chest pain, Denies rapid heart rate, Denies leg edema, Denies lightheadedness and Denies dyspnea Respiratory: Respiratory: Denies chest congestion, Denies cough, Denies dyspnea and Denies wheezing Gastrointestinal: Gastrointestinal: Denies melena, Denies hematochezia, Denies coffee ground emesis, Reports diarrhea, Reports nausea, Reports vomiting and Denies hematemesis Genitourinary: Genitourinary: Denies hematuria, Denies urinary frequency, Reports urinary hesitancy and Denies urinary urgency Musculoskeletal: Musculoskeletal: Denies back pain, Denies myalgias, Denies numbness and Denies tingling Integumentary/Breasts: Skin/Breast: Denies rash Neurologic: Reports confusion, Denies frequent falls, Denies headache(s), Denies numbness, Denies Other visual disturbances, Denies seizure-like activity, Denies tingling, Denies tremor(s) and Denies disequilibrium Psychiatric: Psychiatric: Reports confusion Endocrine: Endocrine: Denies fatigue Hematologic/Lymphatic: Hematologic/Lymphatic: Denies easy bleeding and Denies easy bruising Allergic/Immunologic: Allergic/Immunologic: Denies wheezing PMFSH Medical History COPD (chronic obstructive pulmonary disease) Smoking history Diarrhea Intussusception Hx of trauma LORENZO (obstructive sleep apnea) Hx of substance abuse History of alcohol abuse Hx of hepatitis C Incisional pain GERD (gastroesophageal reflux disease) Functional capacity: independent ambulation Family History Father Cancer Diabetes Mother Diabetes Cancer Surgical History Hx of foot surgery Hx of repair of right rotator cuff History of axillary surgery Hx of knee surgery History of excision of lesion History of esophagogastroduodenoscopy (EGD) Hx of colonoscopy History of Maddy-en-Y gastric bypass Social History Unable to assess alcohol history related to: Unknown Alcohol intake: never Patient Tobacco Use Status: Current someday Tobacco user Tobacco use type: Cigar Cigarettes Per Day: 10 Use of substances other than those prescribed or required for medical reasons: Unknown Advance Directives: No Advance Directives Information Provided: Yes Do you have a plan to hurt others: No Plan Current occupational status: unemployed Current occupation: right handed Narrative: denies etoh, drug use or smoking. Meds Allergies Allergy/AdvReac Type Severity Reaction Status Date / Time ibuprofen [From Motrin] Allergy Severe HIVES Verified 12/31/24 17:03 adhesive tape [Adhesive Tape] Allergy Intermediate SKIN Verified 10/23/24 12:10 BLISTERS Active Medications: Current Medications Acetaminophen (Acetaminophen 325 Mg Tablet) 650 mg PO Q6H PRN PRN Reason: Pain, Mild 1-3,fever,headache Calcium Carbonate (Calcium Carbonate 750 Mg Tab.Chew) 750 mg PO Q4H PRN PRN Reason: Heartburn Enoxaparin Sodium (Enoxaparin Sodium 40 Mg/0.4 Ml Syringe) 40 mg SUBCUT Q24H BALA Last Admin: 12/31/24 22:43 Dose: 40 mg Thiamine HCl 300 mg/ Sodium (Chloride) 103 mls @ 204 mls/hr IV ONCE ONE Stop: 01/01/25 02:30 Lactulose (Lactulose 20 Gm/30 Ml Solution) 30 gm PO ONCE ONE Stop: 01/01/25 01:01 Magnesium Hydroxide (Milk Of Magnesia 30 Ml Oral.Susp) 30 ml PO DAILY PRN PRN Reason: Constipation Melatonin (Melatonin 3 Mg Tablet) 6 mg PO BEDTIME PRN PRN Reason: Insomnia Ondansetron HCl (Ondansetron Hcl 4 Mg/2 Ml Vial) 4 mg IVPUSH Q8H PRN PRN Reason: Nausea and Vomiting Sodium Chloride (0.9 % Sodium Chloride Flush 3 Ml Syringe) [facility] ?Medication ?Instructions ?Recorded ?Confirmed ?Last Taken ?Type buprenorphine 8 mg-naloxone 2 mg 20 mg sublingual DAILY 10/09/20 10/23/24 Unknown History sublingual film gabapentin 800 mg tablet 800 mg PO TID 01/26/22 10/23/24 Unknown History lancets 28 gauge (FreeStyle 01/26/22 10/23/24 Unknown History Lancets) omeprazole 40 mg capsule,delayed 40 mg PO DAILY 01/26/22 10/23/24 Unknown History release multivitamin 1 tab PO DAILY 10/27/23 10/23/24 Unknown History aspirin 81 mg tablet,delayed 81 mg PO DAILY 10/23/24 10/23/24 Unknown History release Physical Exam 2 Vital Signs and Narrative: Vital Signs: Last Vital Signs Temp 98.4 F 12/31/24 22:34 Pulse 97 12/31/24 22:34 Resp 20 12/31/24 22:34 BP 138/80 12/31/24 22:34 Pulse Ox 98 12/31/24 22:34 O2 Del Method Room Air 12/31/24 22:34 BMI result Body Mass Index 36.5 General: Alert and oriented to person, place and time, no acute distress. intermittent confusion. reported agitation. Resp: CTA bilaterally CVS: S1, S2, RRR GI: +BS, NT, no distention Skin: Warm, dry Neuro: Cranial nerves II-XII grossly intact bilaterally. Motor grossly intact bilaterally. strength 5/5 bilateral upper and lower extremities. no asterixis. no tremor. Extremities: No LE edema Psych: Appropriate affect Const: General: confusion Orientation/consciousness: confusion Eyes: Direct Ophthalmoscopy: No photophobia Neuro: General: confusion Results Labs 12/31/24 18:05 12/31/24 18:05 Labs: Laboratory Results - last 24 hr 12/31/24 12/31/24 12/31/24 18:04 18:05 20:54 MCV 85.7 MCH 28.5 MCHC 33.3 RDW 13.7 Plt Count 214 MPV 9.0 L Immature Gran % (Auto) 0.4 Neut % (Auto) 79.1 H Lymph % (Auto) 14.2 L Elmore % (Auto) 5.9 Eos % (Auto) 0.0 Baso % (Auto) 0.4 Lymph # (Auto) 0.7 L Elmore # (Auto) 0.3 Eos # (Auto) 0.0 Baso # (Auto) 0.0 Abs Immat Gran (auto) 0.02 Absolute Neuts (auto) 3.9 Absolute Nucleated RBC 0.000 Nucleated RBC % (auto) 0.0 Anion Gap 13 Estim Creat Clear Calc 171.3 Estimated GFR > 60 Random Glucose 111 Lactic Acid 1.3 Calcium 9.5 Phosphorus 1.7 L Magnesium 2.0 Total Bilirubin 0.6 Direct Bilirubin 0.2 AST 33 ALT 21 Alkaline Phosphatase 107 Ammonia 70 H Total Protein 7.9 Albumin 4.2 Lipase 7 L Ethyl Alcohol < 10 Influenza Type A (PCR) NEGATIVE Influenza Type B (PCR) NEGATIVE RSV RNA Qual (PCR) NEGATIVE SARS-CoV-2 RNA (RT-PCR) NEGATIVE Assessment and Plan (1) AMS (altered mental status): Status: Acute (2) Nausea & vomiting: Status: Acute (3) Obesity (BMI 30-39.9): Status: Chronic Plan patient is a 64-year-old male with a past medical history significant for alcohol abuse, substance use disorder, Maddy-en-Y gastric bypass, hepatitis-C, intussusception and GERD, presented to the ED due to nausea, vomiting and diarrhea for the past week with tactile fevers and abdominal discomfort as well as altered mental status for the past 2 days. AMS, CVA vs Wernicke vs hyperammonemia - WBC normal, vitals stable, no sign of infection, blood cultures x2 pending, no sepsis - ammonia 70 - UA and drug screen green pending, patient unable to provide urine sample, bladder scan 283 - A/P CT with no acute findings - CT C-spine negative - Head CT with subtle hypodensity within the right inferior temporal lobe which could be artifactual over acute infarct can not be excluded - MRI brain ordered - given lactulose 30 mg total in ED, give additional 30 mg as patient reports no bowel movement - given 300 mg total IV thiamine, give additional 200 mg IV - monitor CIWA, score currently very low, patient denies recent alcohol use - neurology consult - monitor CBC, CMP and ammonia substance use disorder - continue home meds once med rec done hepatitis-C - LFTs normal - unsure if patient was treated GERD - continue home meds once med rec done Obesity - BMI 36.5 - weight loss encouraged med rec not complete upon admission full code VTE prophylaxis: Lovenox patient with altered mental status with unknown etiology, CVA versus Wernicke versus hyperammonemia, requiring admission for further workup and monitoring for at least 2 midnights stay. Quality Stroke Does the patient have a stroke diagnosis?: No VTE Prior VTE?: No VTE Risk Level:: Medical - moderate - high VTE Device Contraindication: Treatment Not Indicated VTE Drug Contraindication: N/A - Med Ordered
[2024-12-31 23:21] LABS: Appearance Urine Clear; Color Urine Yellow; Glucose Urine UA Negative (Negative); Leukocyte Esterase Urine Negative (Negative); Nitrite Urine Negative (Negative); Specific Gravity - Urine >= 1.030 (1.005-1.025); UMIC TRIGGER UACC YES; Urine Blood Negative (Negative); Urine Ketones 15 mg/dL (Negative); Urine Protein 30 (1+) mg/dL (Neg-Trace)
[2024-12-31 23:32] LABS: Amphetamine Screen Urine Not Detected (Not Detect); Barbiturates, Urine Not Detected (Not Detect); Benzodiazepines Screen Urine Not Detected (Not Detect); Buprenorphine Scr Positive (Not Detect); Cannabinoid Screen Urine POSITIVE (Not Detect); Cocaine Screen Urine Not Detected (Not Detect); Fentanyl, urine Not Detected (Not Detect); Methadone Screen, Urine Not Detected (Not Detect); Opiate Screen Urine Not Detected (Not Detect); Oxycodone Screen Urine Not Detected (Not Detect); Phencyclidine Screen Urine Not Detected (Not Detect)
[2024-12-31 23:43] LABS: Bacteria Urine None Seen (None Seen); Hyaline Casts Urine 0-2 /LPF (0-2); RBC Urine 0-2 /HPF (0-2); Squamous Epithelial Cell Urine 0-2 /HPF (0-2); WBC Urine 0-5 /HPF (0-5)
[2025-01-01] VITALS (8 sets, daily range): BP systolic 130–174; BP diastolic 70–86; PULSE 64–90; RESP 16–27; TEMP 36.2–37.1; O2SAT 95–98; BMI 35.0
--- NOTE | 2025-01-01 | EEG_ITS ---
This is a 16-channel EEG with an EKG lead. The patient is reported awake during the tracing. Background EEG rhythm is 8 to 10 hertz 5 to 20 microvolt posteriorly and lower amplitude fast anteriorly. Photic stimulation is unremarkable. No sharp wave spikes or paroxysmal tendency noted. Cardiac lead does not reveal any significant abnormality. IMPRESSION: Mild slowing, otherwise no significant abnormality noted. MD GO Braswell/ANGELICA / [id number]
--- NOTE | 2025-01-01 00:39 | PC.NURSE ---
Pt getting restless and has a current CIWA of 12. He's constantly moving around in the bed and pulling at monitoring equipment and when asked if he knows the month/year, he looks at the clock and says 12:20 . Provider Opal notified via y [employer]. Plan for phenobarb.
[2025-01-01] MEDS: Lactulose 20 GM/30 ML SOLUTION 30 GM PO (00:53)
[2025-01-01] MEDS: 0.9 % Sodium Chloride Flush 3 ML SYRINGE IVFLUSH ×3 (00:54→15:28)
[2025-01-01] MEDS: PHENobarbitaL sodium 130 MG/ML IM ONCE 325 MG IM (01:13)
--- NOTE | 2025-01-01 01:13 | PC.NURSE ---
Pt medicated per MAR with phenobarb.
--- NOTE | 2025-01-01 01:20 | PC.NURSE ---
Fluids noted to be infusing slowly through 18g PIV to left AC. New #20 PIV initiated to left forearm. Nacl bolus infusing at a faster rate at this time. Pt given additional warm blanket for comfort and per request.
[2025-01-01] MEDS: PHENobarbitaL sodium 130 MG/ML VIAL IM Q3Hx2 246 MG IM ×2 (04:02→07:01)
[2025-01-01 04:29] LABS: Ammonia 37 umol/L (13-55)
[2025-01-01 05:23] LABS: MANUAL DIFF FLAG NO
[2025-01-01 05:27] LABS: Basophils Percent Auto 0.2 % (0-2); Eosinophils Percent Auto 0.2 % (0-4); Hematocrit 40.8 % (42.0-52.0); Hemoglobin 13.8 g/dl (14.0-18.0); Imm Gran Abs Auto 0.05 X10*3/uL (0.00-0.03); Imm Gran Pct Auto 0.8 % (0.0-0.4); Lymphocytes Absolute Auto 0.6 X10*3/uL (1.2-4.9); Lymphocytes Percent Auto 9.5 % (20-40); Mean Corpuscular HGB Conc 33.8 g/dl (31.0-36.0); Mean Corpuscular Hemoglobin 28.8 pg (27.0-33.0); Mean Corpuscular Volume 85.2 fL (80.0-98.0); Mean Platelet Volume 9.2 fL (9.4-12.4); Monocytes Absolute Auto 0.2 X10*3/uL (0.1-1.2); Neutrophils Absolute Auto 5.7 x10*3/uL (2.0-8.3); Neutrophils Percent Auto 86.3 % (45-73); Platelet Count 230 X10*3/uL (160-400); Red Blood Count 4.79 X10*6/uL (4.60-5.80); Red Cell Distribution Width 13.6 % (11.0-16.0); White Blood Count 6.6 X10*3/uL (4.8-10.8)
[2025-01-01 05:39] LABS: Anion Gap 15 (12-20); Blood Urea Nitrogen 10 mg/dL (9-16); Carbon Dioxide 20 mmol/L (22-29); Chloride 109 mmol/L (96-108); Creatinine Clr Calc Pharmacy 163.5; Estimated Glomerular Filt Rate > 60; Glucose Random 118 mg/dL (60-115); Potassium 3.7 mmol/L (3.3-5.1); Sodium 140 mmol/L (135-145)
[2025-01-01 05:42] LABS: Acetaminophen LAB < 3 mcg/mL (<30); Salicylate < 5.0 mg/dL (15-30)
--- NOTE | 2025-01-01 07:51 | P.PNIM_ITS ---
Subjective Subjective Date of Service: 01/01/25 Interval History: f/u on on altered mental status, concern for cva Pt was not confused at the time of my eval and no focal neuro Physical Exam 2 Vital Signs: Vital Signs: Last Vital Signs Temp 98.2 F 01/01/25 06:53 Pulse 70 01/01/25 06:53 Resp 17 01/01/25 06:53 BP 133/86 01/01/25 06:53 Pulse Ox 97 01/01/25 06:53 O2 Del Method Room Air 01/01/25 06:53 BMI result Body Mass Index 36.5 Const: Other: General: AO X 3, no acute distress Resp: CTA bilateral CVS: S1,S2,RRR GI: +BS, NT, no distention Skin: No rash Neuro: motor grossly intact Psych: appropriate affect Objective Data Active Medications Acetaminophen (Acetaminophen 325 Mg Tablet) 650 mg PO Q6H PRN PRN Reason: Pain, Mild 1-3,fever,headache Calcium Carbonate (Calcium Carbonate 750 Mg Tab.Chew) 750 mg PO Q4H PRN PRN Reason: Heartburn Enoxaparin Sodium (Enoxaparin Sodium 40 Mg/0.4 Ml Syringe) 40 mg SUBCUT Q24H [facility] Last Admin: 12/31/24 22:43 Dose: 40 mg Documented By: DAVIS Magnesium Hydroxide (Milk Of Magnesia 30 Ml Oral.Susp) 30 ml PO DAILY PRN PRN Reason: Constipation Melatonin (Melatonin 3 Mg Tablet) 6 mg PO BEDTIME PRN PRN Reason: Insomnia Ondansetron HCl (Ondansetron Hcl 4 Mg/2 Ml Vial) 4 mg IVPUSH Q8H PRN PRN Reason: Nausea and Vomiting Pharmacy Consult (Consult Rx Etoh Phenob Im/Po) 1 each MISCELLANE ONCE PRN; Protocol PRN Reason: Consult order Phenobarbital (Phenobarbital 30 Mg Tablet) 60 mg PO BID [facility] Stop: 01/03/25 09:01 Phenobarbital (Phenobarbital 30 Mg Tablet) 30 mg PO BID [facility] Stop: 01/05/25 09:01 Phenobarbital (Phenobarbital 30 Mg Tablet) 30 mg PO DAILY [facility] Stop: 01/07/25 09:01 Sodium Chloride (0.9 % Sodium Chloride Flush 3 Ml Syringe) 3 ml IVFLUSH QSHIFT [facility] Last Admin: 01/01/25 00:54 Dose: 3 ml Documented By: TIM Labs 01/01/25 04:19 01/01/25 04:19 Labs: Laboratory Results - last 24 hr 12/31/24 12/31/24 12/31/24 18:04 18:05 20:54 MCV 85.7 MCH 28.5 MCHC 33.3 RDW 13.7 Plt Count 214 MPV 9.0 L Immature Gran % (Auto) 0.4 Neut % (Auto) 79.1 H Lymph % (Auto) 14.2 L [place] % (Auto) 5.9 Eos % (Auto) 0.0 Baso % (Auto) 0.4 Lymph # (Auto) 0.7 L [place] # (Auto) 0.3 Eos # (Auto) 0.0 Baso # (Auto) 0.0 Abs Immat Gran (auto) 0.02 Absolute Neuts (auto) 3.9 Absolute Nucleated RBC 0.000 Nucleated RBC % (auto) 0.0 Anion Gap 13 Estim Creat Clear Calc 171.3 Estimated GFR > 60 Random Glucose 111 Lactic Acid 1.3 Calcium 9.5 Phosphorus 1.7 L Magnesium 2.0 Total Bilirubin 0.6 Direct Bilirubin 0.2 AST 33 ALT 21 Alkaline Phosphatase 107 Ammonia 70 H Total Protein 7.9 Albumin 4.2 Lipase 7 L Urine Color Urine Appearance Urine pH Ur Specific [place] Urine Protein Urine Glucose (UA) Urine Ketones Urine Blood Urine Nitrite Ur Leukocyte Esterase Urine RBC Urine WBC Ur Squamous Epith Cells Urine Bacteria Hyaline Casts Salicylates Urine Opiates Screen Ur Buprenorphine Scrn Ur Oxycodone Screen Urine Methadone Screen Urine Fentanyl Screen Acetaminophen Ur Barbiturates Screen Ur Phencyclidine Scrn Ur Amphetamines Screen U Benzodiazepines Scrn Urine Cocaine Screen U Marijuana (THC) Screen Ethyl Alcohol < 10 Influenza Type A (PCR) NEGATIVE Influenza Type B (PCR) NEGATIVE RSV RNA Qual (PCR) NEGATIVE SARS-CoV-2 RNA (RT-PCR) NEGATIVE 12/31/24 01/01/25 23:00 04:19 MCV 85.2 MCH 28.8 MCHC 33.8 RDW 13.6 Plt Count 230 MPV 9.2 L Immature Gran % (Auto) 0.8 H Neut % (Auto) 86.3 H Lymph % (Auto) 9.5 L [place] % (Auto) 3.0 Eos % (Auto) 0.2 Baso % (Auto) 0.2 Lymph # (Auto) 0.6 L [place] # (Auto) 0.2 Eos # (Auto) 0.0 Baso # (Auto) 0.0 Abs Immat Gran (auto) 0.05 H Absolute Neuts (auto) 5.7 Absolute Nucleated RBC 0.000 Nucleated RBC % (auto) 0.0 Anion Gap 15 Estim Creat Clear Calc 163.5 Estimated GFR > 60 Random Glucose 118 H Lactic Acid Calcium 9.0 Phosphorus Magnesium Total Bilirubin Direct Bilirubin AST ALT Alkaline Phosphatase Ammonia 37 Total Protein Albumin Lipase Urine Color Yellow Urine Appearance Clear Urine pH 8.0 Ur Specific [place] >= 1.030 H Urine Protein 30 (1+) H Urine Glucose (UA) Negative Urine Ketones 15 Urine Blood Negative Urine Nitrite Negative Ur Leukocyte Esterase Negative Urine RBC 0-2 Urine WBC 0-5 Ur Squamous Epith Cells 0-2 Urine Bacteria None Seen Hyaline Casts 0-2 Salicylates < 5.0 L Urine Opiates Screen Not Detected Ur Buprenorphine Scrn Positive H Ur Oxycodone Screen Not Detected Urine Methadone Screen Not Detected Urine Fentanyl Screen Not Detected Acetaminophen < 3 Ur Barbiturates Screen Not Detected Ur Phencyclidine Scrn Not Detected Ur Amphetamines Screen Not Detected U Benzodiazepines Scrn Not Detected Urine Cocaine Screen Not Detected U Marijuana (THC) Screen POSITIVE H Ethyl Alcohol Influenza Type A (PCR) Influenza Type B (PCR) RSV RNA Qual (PCR) SARS-CoV-2 RNA (RT-PCR) Assessment and Plan (1) AMS (altered mental status): Status: Acute Plan patient is a 64-year-old male with a past medical history significant for alcohol abuse, substance use disorder, Maddy-en-Y gastric bypass, hepatitis-C, intussusception and GERD, presented to the ED due to nausea, vomiting and diarrhea for the past week with tactile fevers and abdominal discomfort as well as altered mental status for the past 2 days. AMS, CVA vs Wernicke vas hepatic encephalopathy CT show hypodense area in right inferior tempral lobe, MRI of head Neurology consult Hepatic encephalopathy with ammonia of 70, now 37 after lactulose -continue lacutulose and monitor mental status Alcohol dependency, at [facility] for withdrawal, but he tells me he hasn't drank in 16 year phenobarbital protocol Ciwa folic acid and thiamine. addinction med consult before discharge Diarrhea d/t noro virus conservative managment, keep up with fluid loss substance use disorder continue home meds once med rec done hepatitis-C LFTs normal unsure if patient was treated GERD continue home meds once med rec done Obesity - BMI 36.5 - weight loss encouraged med rec not complete upon admission full code VTE prophylaxis: Lovenox patient with altered mental status with unknown etiology, CVA versus Wernicke versus hyperammonemia, requiring admission for further workup and monitoring for at least 2 midnights stay. Quality Stroke Does the patient have a stroke diagnosis?: No VTE Prior VTE?: No VTE Risk Level:: Medical - moderate - high VTE Device Contraindication: Treatment Not Indicated VTE Drug Contraindication: N/A - Med Ordered
[2025-01-01 09:33] LABS: Ethylene Glycol NONE DETECTED (NONE DETECTED)
--- NOTE | 2025-01-01 13:21 | PHA.MEDREC ---
Addendum entered by Anthony Day RPh 01/01/25 13:39: Med rec was reviewed by [facility]. Original Note: Pharmacy Consult ? Medication Reconciliation Pharmacy has completed the medication reconciliation. Spoke with patient who was alert and able to confirm his medications with me. He confirmed he is taking the Azithromycin 250mg tab and confirmed he is taking 1 tablet on Monday, Wednesdays and Fridays and confirmed he took it this past Monday. He confirmed the buprenorphine 8 mg-naloxone 2 mg sublingual film 1 film twice a day and states he has not taken those since Monday night. He confirmed the gabapentin 800mg tab and confirmed he has been taking 1/2 tab (400mg) twice a day at around 0800,1400 and states he takes 1 and 1/2 tablet (1200mg) at bedtime. He states he has not been able to take any of his medications since Monday night.
--- NOTE | 2025-01-01 13:25 | MHC.CM.PN ---
IMM 01/01/25, PT W/AMS, STROKE VS WERNICKE'S VS HYPONATREMIA, CM ME TW/PT WHO IS A&O, PT REPORTS HE LIVES W/HIS S.O. OF 28YRS, PT REPORTS HE'S INDEP FOR THE MOST PART PT HAS A NEBULIZER, CPAP, CANE AND WALKER (NO WHEELS) FOR DME HOWEVER PT REPORTS HE DOESN'T TYPICALL USE CANE/WALKER, PT DENIES HAVING HOME SERVICES AND GOAL FOR DC IS HOME. PT VERIFIES PCP ON FILE IS CORRECT AND HAS BEEN EDUCTAED ON AND DECLINES TO COMPLETE A HCP.
[2025-01-01 14:24] LABS: Analysis Performed on: WHOLE BLOOD; Methyl Alcohol Level NONE DETECTED (NONE DETECTED)
[2025-01-01] MEDS: Aspirin Enteric Coated 81 MG TABLET.DR PO (15:26)
[2025-01-01] MEDS: Azithromycin 250 MG TABLET PO (15:27)
[2025-01-01] MEDS: Gabapentin 400 MG CAPSULE PO (15:27)
--- NOTE | 2025-01-01 16:36 | PM.NEUROCN ---
History of Present Illness Data of Consult Service Date: 01/01/25 Primary Care Provider: MD ROBERT [place] Reason for consult: Confused 64-year-old male with a past medical history significant for alcohol abuse, substance use disorder, Maddy-en-Y gastric bypass, hepatitis-C, intussusception and GERD, presented to the ED due to nausea, vomiting and diarrhea for the past week with tactile fevers and abdominal discomfort as well as altered mental status for the past 2 days. He said that something happened to his mind and he did not know what happened. He was also having a headache for few days, which according to him was not his problem. He has not been drinking alcohol and recent years. Review of Systems Review of Systems: No recent cold or flu-like illness PMFSH Past Medical History Medical History COPD (chronic obstructive pulmonary disease) Smoking history Diarrhea Intussusception Hx of trauma LORENZO (obstructive sleep apnea) Hx of substance abuse History of alcohol abuse Hx of hepatitis C Incisional pain GERD (gastroesophageal reflux disease) Family History Family History Father Cancer Diabetes Mother Diabetes Cancer Surgical History Surgical History Hx of foot surgery Hx of repair of right rotator cuff History of axillary surgery Hx of knee surgery History of excision of lesion History of esophagogastroduodenoscopy (EGD) Hx of colonoscopy History of Maddy-en-Y gastric bypass Social History Social History Household Members: Significant Other Housing: House Do you presently have visiting nurse or other home services: No Unable to assess alcohol history related to: Unknown Alcohol intake: never Patient Tobacco Use Status: Former Tobacco user Tobacco use type: Cigar Cigarettes Per Day: 10 Second Hand Smoke Exposure: No service: No Current occupational status: unemployed Current occupation: right handed Meds Allergies Allergy/AdvReac Type Severity Reaction Status Date / Time ibuprofen [From Motrin] Allergy Severe HIVES Verified 12/31/24 17:03 adhesive tape [Adhesive Tape] Allergy Intermediate SKIN Verified 10/23/24 12:10 BLISTERS Active Medications: Current Medications Acetaminophen (Acetaminophen 325 Mg Tablet) 650 mg PO Q6H PRN PRN Reason: Pain, Mild 1-3,fever,headache Albuterol Sulfate (Albuterol Sulfate 90 Mcg 8 Gm Inhaler) 2 puff INHALE QID PRN PRN Reason: shortness of breath or wheezing Aspirin (Aspirin Enteric Coated 81 Mg Tablet.) 81 mg PO DAILY [facility] Last Admin: 01/01/25 15:26 Dose: 81 mg Azithromycin (Azithromycin 250 Mg Tablet) 250 mg PO MOWEFR [facility] Last Admin: 01/01/25 15:27 Dose: 250 mg Buprenorphine/Naloxone (Buprenorphine/Naloxone 8/2 Mg Film) 1 film SUBLINGUAL BID [facility] Calcium Carbonate (Calcium Carbonate 750 Mg Tab.Chew) 750 mg PO Q4H PRN PRN Reason: Heartburn Enoxaparin Sodium (Enoxaparin Sodium 40 Mg/0.4 Ml Syringe) 40 mg SUBCUT Q24H [facility] Last Admin: 12/31/24 22:43 Dose: 40 mg Gabapentin (Gabapentin 400 Mg Capsule) 400 mg PO BID@0800,1400 [facility] Last Admin: 01/01/25 15:27 Dose: 400 mg Gabapentin (Gabapentin 400 Mg Capsule) 1,200 mg PO BEDTIME [facility] Levalbuterol HCl (Levalbuterol Hcl 1.25 Mg/3 Ml Vial.Harjinder) 1.25 mg INHALE BID [facility] Magnesium Hydroxide (Milk Of Magnesia 30 Ml Oral.Susp) 30 ml PO DAILY PRN PRN Reason: Constipation Melatonin (Melatonin 3 Mg Tablet) 6 mg PO BEDTIME PRN PRN Reason: Insomnia Multivitamins/Vitamin C (Multivitamin Tablet) 1 tab PO DAILY [facility] Non-Formulary Medication (Gqisjwehsl-Mtzlmllr-Xataqpoboc [Breztri Aerosphere]) 2 inhalation INHALE BID [facility] Omeprazole (Omeprazole 40 Mg Capsule.) 40 mg PO DAILY@0630 [facility] Ondansetron HCl (Ondansetron Hcl 4 Mg/2 Ml Vial) 4 mg IVPUSH Q8H PRN PRN Reason: Nausea and Vomiting Pharmacy Consult (Consult Rx Etoh Phenob Im/Po) 1 each MISCELLANE ONCE PRN; Protocol PRN Reason: Consult order Phenobarbital (Phenobarbital 30 Mg Tablet) 60 mg PO BID [facility] Stop: 01/03/25 09:01 Phenobarbital (Phenobarbital 30 Mg Tablet) 30 mg PO BID [facility] Stop: 01/05/25 09:01 Phenobarbital (Phenobarbital 30 Mg Tablet) 30 mg PO DAILY [facility] Stop: 01/07/25 09:01 Sodium Chloride (0.9 % Sodium Chloride Flush 3 Ml Syringe) 3 ml IVFLUSH QSHIFT [facility] Last Admin: 01/01/25 15:28 Dose: 3 ml Home Medications ?Medication ?Instructions ?Recorded ?Confirmed ?Last Taken ?Type buprenorphine 8 mg-naloxone 2 mg 1 film sublingual BID 10/09/20 01/01/25 12/30/24 History sublingual film gabapentin 800 mg tablet 1,200 mg PO BEDTIME 01/26/22 01/01/25 12/30/24 History lancets 28 gauge (FreeStyle 01/26/22 10/23/24 Unknown History Lancets) omeprazole 40 mg capsule,delayed 40 mg PO DAILY 01/26/22 01/01/25 12/30/24 History release multivitamin 1 tab PO DAILY 10/27/23 01/01/25 12/30/24 History aspirin 81 mg tablet,delayed 81 mg PO DAILY 10/23/24 01/01/25 12/30/24 History release azithromycin 250 mg tablet 250 mg PO MOWEFR 01/01/25 01/01/25 12/30/24 History gabapentin 800 mg tablet 400 mg PO BID@0800,1400 01/01/25 01/01/25 12/30/24 History Physical Exam Vital Signs: Vital Signs: Last Vital Signs Temp 98.7 F 01/01/25 15:28 Pulse 90 01/01/25 15:28 Resp 20 01/01/25 15:28 BP 172/84 H 01/01/25 15:28 Pulse Ox 96 01/01/25 15:28 O2 Del Method Room Air 01/01/25 15:28 BMI result Body Mass Index 36.5 Neuro: Other: He is alert and awake with normal spontaneity of speech fluency comprehension and vague affect. Face is symmetrical. Visual shields are full. There was no focal weakness. His moderate to severely obese. Results Labs 01/01/25 04:19 01/01/25 04:19 Labs: Short CBC 12/31/24 01/01/25 Range/Units 18:05 04:19 WBC 4.9 6.6 (4.8-10.8) X10*3/uL Hgb 14.6 13.8 L (14.0-18.0) g/dl Hct 43.9 40.8 L (42.0-52.0) % Plt Count 214 230 (160-400) X10*3/uL BMP 12/31/24 01/01/25 18:05 04:19 Sodium 140 140 Potassium 3.7 3.7 Chloride 108 109 H Carbon Dioxide 23 20 L BUN 9 10 Creatinine 0.63 0.66 Calcium 9.5 9.0 Liver Function 12/31/24 Range/Units 18:05 Total Bilirubin 0.6 (0.0-1.0) mg/dL Direct Bilirubin 0.2 (0.0-0.5) mg/dL AST 33 (5-37) U/L ALT 21 (0-40) U/L Alkaline Phosphatase 107 (39-117) U/L Albumin 4.2 (3.5-5.0) g/dL Urine 12/31/24 Range/Units 23:00 Urine Color Yellow Urine Appearance Clear Urine pH 8.0 (5.0-9.0) Ur Specific [place] >= 1.030 H (1.005-1.025) Urine Protein 30 (1+) H (Neg-Trace) mg/dL Urine Glucose (UA) Negative (Negative) mg/dL Noncontrast head CT was somewhat limited because of position and movement. Questionable right temporal mixed density was noted. Assessment and Plan (1) AMS (altered mental status): Qualifiers: Altered mental status type: disorientation Qualified Code(s): R41.0 - Disorientation, unspecified Status: Acute 64 years old man with an episode of confusion and head CT revealing possible right medial temporal mixed density lesion. My recommendation is to obtain an MRI of brain for definition of the brain lesion and an EEG. Procedures Date of Service Date of Service: 01/01/25
[2025-01-01] MEDS: PHENobarbitaL 30 MG TABLET 60 MG PO (18:12)
[2025-01-01] MEDS: levalbuterol HCL 1.25 MG/3 ML VIAL.NEB INHALE (20:43)
[2025-01-01] MEDS: Buprenorphine/Naloxone 8/2 mg FILM 1 FILM SUBLINGUAL (21:28)
[2025-01-01] MEDS: Enoxaparin Sodium 40 MG/0.4 ML SYRINGE SUBCUT (21:28)
[2025-01-01] MEDS: Gabapentin 400 MG CAPSULE 1200 MG PO (21:28)
[2025-01-02 03:48] VITALS: BP 125/64; PULSE 64; RESP 16; TEMP 36; O2SAT 94
[2025-01-02 07:08] VITALS: BP 134/69; PULSE 63; RESP 18; TEMP 36.2; O2SAT 95
[2025-01-02] MEDS: levalbuterol HCL 1.25 MG/3 ML VIAL.NEB INHALE ×2 (08:36→20:10)
[2025-01-02 08:39] VITALS: PULSE 60; RESP 18; O2SAT 92
[2025-01-02] MEDS: Aspirin Enteric Coated 81 MG TABLET.DR PO (09:38)
[2025-01-02] MEDS: Gabapentin 400 MG CAPSULE PO ×2 (09:38→15:05)
[2025-01-02] MEDS: Multivitamin TABLET 1 TAB PO (09:38)
[2025-01-02] MEDS: 0.9 % Sodium Chloride Flush 3 ML SYRINGE IVFLUSH ×3 (09:40→19:12)
[2025-01-02] MEDS: Buprenorphine/Naloxone 8/2 mg FILM 1 FILM SUBLINGUAL ×2 (10:13→20:05)
--- NOTE | 2025-01-02 11:15 | HO.ADDICT_ITS ---
History of Present Illness Date of Service: 01/02/2025 Chief Complaint: AMS Reason for Consult: ? current alcohol use Sources of Information: patient interviewed and chart reviewed HPI Narrative: Patient is a 64 year old male medically admitted with AMS. Due to patients history of AUD, there was concern of wernikes encephalopathy, so consult was requested. Patient seen in room 482. He is awake, alert, oriented, very pleasant and engaged in interview He reports he has been in recovery, abstaining from all substance use for 16 years. He is prescribed Suboxone via [facility], and has been stable at current dose for quite some time. He reports that he has been prescribed Suboxone for over 10 years. He reports that at home, he usually takes both 8mg films together in the morning (it is ordered BID here) He did not appear tremulous, diaphoretic, no nystagmus noted Observed to be walking with steady gait to the bathroom At admission ammonia level elevated (has since normalized with lactulose) MRI pending at time of assessment Medical Evaluation Reviewed: Yes Review of Systems Constitutional: Reports as per HPI (reporting cough and wheezing which is chronic ) Diagnostics Vital Signs (24Hr): Vital Signs - 24 hr 01/01/25 15:28 01/01/25 20:00 01/01/25 20:43 Temperature 98.7 F 97.2 F Pulse Rate 90 66 90 Respiratory Rate 20 16 18 Blood Pressure 172/84 H 163/85 H Pulse Oximetry 96 96 Oxygen Delivery Method Room Air Room Air 01/01/25 23:35 01/02/25 03:48 01/02/25 07:08 Temperature 97.3 F 96.8 F 97.1 F Pulse Rate 84 64 63 Respiratory Rate 16 16 18 Blood Pressure 130/70 125/64 134/69 Pulse Oximetry 95 94 95 Oxygen Delivery Method Room Air Room Air Room Air 01/02/25 08:39 Temperature Pulse Rate 60 Respiratory Rate 18 Blood Pressure Pulse Oximetry Oxygen Delivery Method BMI result Body Mass Index 35.0 Labs 01/01/25 04:19 01/01/25 04:19 Labs: Laboratory Results - last 48 hr 12/31/24 12/31/24 12/31/24 18:00 18:04 18:05 WBC 4.9 RBC 5.12 Hgb 14.6 Hct 43.9 MCV 85.7 MCH 28.5 MCHC 33.3 RDW 13.7 Plt Count 214 MPV 9.0 L Immature Gran % (Auto) 0.4 Neut % (Auto) 79.1 H Lymph % (Auto) 14.2 L [place] % (Auto) 5.9 Eos % (Auto) 0.0 Baso % (Auto) 0.4 Lymph # (Auto) 0.7 L [place] # (Auto) 0.3 Eos # (Auto) 0.0 Baso # (Auto) 0.0 Abs Immat Gran (auto) 0.02 Absolute Neuts (auto) 3.9 Absolute Nucleated RBC 0.000 Nucleated RBC % (auto) 0.0 Sodium 140 Potassium 3.7 Chloride 108 Carbon Dioxide 23 Anion Gap 13 BUN 9 Creatinine 0.63 Estim Creat Clear Calc 171.3 Estimated GFR > 60 Random Glucose 111 Lactic Acid 1.3 Calcium 9.5 Phosphorus 1.7 L Magnesium 2.0 Total Bilirubin 0.6 Direct Bilirubin 0.2 AST 33 ALT 21 Alkaline Phosphatase 107 Ammonia Troponin I High Sens 9.7 Total Protein 7.9 Albumin 4.2 Lipase 7 L Urine Color Urine Appearance Urine pH Ur Specific [place] Urine Protein Urine Glucose (UA) Urine Ketones Urine Blood Urine Nitrite Ur Leukocyte Esterase Urine RBC Urine WBC Ur Squamous Epith Cells Urine Bacteria Hyaline Casts Salicylates Urine Opiates Screen Ur Buprenorphine Scrn Ur Oxycodone Screen Urine Methadone Screen Urine Fentanyl Screen Acetaminophen Ur Barbiturates Screen Ur Phencyclidine Scrn Ur Amphetamines Screen U Benzodiazepines Scrn Urine Cocaine Screen U Marijuana (THC) Screen Ethylene Glycol NONE DETECTED Volat Analys Perform On WHOLE BLOOD Ethyl Alcohol < 10 Methyl Alcohol Level NONE DETECTED Influenza Type A (PCR) NEGATIVE Influenza Type B (PCR) NEGATIVE RSV RNA Qual (PCR) NEGATIVE SARS-CoV-2 RNA (RT-PCR) NEGATIVE 12/31/24 12/31/24 12/31/24 20:24 20:54 23:00 WBC RBC Hgb Hct MCV MCH MCHC RDW Plt Count MPV Immature Gran % (Auto) Neut % (Auto) Lymph % (Auto) [place] % (Auto) Eos % (Auto) Baso % (Auto) Lymph # (Auto) [place] # (Auto) Eos # (Auto) Baso # (Auto) Abs Immat Gran (auto) Absolute Neuts (auto) Absolute Nucleated RBC Nucleated RBC % (auto) Sodium Potassium Chloride Carbon Dioxide Anion Gap BUN Creatinine Estim Creat Clear Calc Estimated GFR Random Glucose Lactic Acid Calcium Phosphorus Magnesium Total Bilirubin Direct Bilirubin AST ALT Alkaline Phosphatase Ammonia 70 H Troponin I High Sens 8.2 Total Protein Albumin Lipase Urine Color Yellow Urine Appearance Clear Urine pH 8.0 Ur Specific [place] >= 1.030 H Urine Protein 30 (1+) H Urine Glucose (UA) Negative Urine Ketones 15 Urine Blood Negative Urine Nitrite Negative Ur Leukocyte Esterase Negative Urine RBC 0-2 Urine WBC 0-5 Ur Squamous Epith Cells 0-2 Urine Bacteria None Seen Hyaline Casts 0-2 Salicylates Urine Opiates Screen Not Detected Ur Buprenorphine Scrn Positive H Ur Oxycodone Screen Not Detected Urine Methadone Screen Not Detected Urine Fentanyl Screen Not Detected Acetaminophen Ur Barbiturates Screen Not Detected Ur Phencyclidine Scrn Not Detected Ur Amphetamines Screen Not Detected U Benzodiazepines Scrn Not Detected Urine Cocaine Screen Not Detected U Marijuana (THC) Screen POSITIVE H Ethylene Glycol Volat Analys Perform On Ethyl Alcohol Methyl Alcohol Level Influenza Type A (PCR) Influenza Type B (PCR) RSV RNA Qual (PCR) SARS-CoV-2 RNA (RT-PCR) 01/01/25 04:19 WBC 6.6 RBC 4.79 Hgb 13.8 L Hct 40.8 L MCV 85.2 MCH 28.8 MCHC 33.8 RDW 13.6 Plt Count 230 MPV 9.2 L Immature Gran % (Auto) 0.8 H Neut % (Auto) 86.3 H Lymph % (Auto) 9.5 L [place] % (Auto) 3.0 Eos % (Auto) 0.2 Baso % (Auto) 0.2 Lymph # (Auto) 0.6 L [place] # (Auto) 0.2 Eos # (Auto) 0.0 Baso # (Auto) 0.0 Abs Immat Gran (auto) 0.05 H Absolute Neuts (auto) 5.7 Absolute Nucleated RBC 0.000 Nucleated RBC % (auto) 0.0 Sodium 140 Potassium 3.7 Chloride 109 H Carbon Dioxide 20 L Anion Gap 15 BUN 10 Creatinine 0.66 Estim Creat Clear Calc 163.5 Estimated GFR > 60 Random Glucose 118 H Lactic Acid Calcium 9.0 Phosphorus Magnesium Total Bilirubin Direct Bilirubin AST ALT Alkaline Phosphatase Ammonia 37 Troponin I High Sens Total Protein Albumin Lipase Urine Color Urine Appearance Urine pH Ur Specific [place] Urine Protein Urine Glucose (UA) Urine Ketones Urine Blood Urine Nitrite Ur Leukocyte Esterase Urine RBC Urine WBC Ur Squamous Epith Cells Urine Bacteria Hyaline Casts Salicylates < 5.0 L Urine Opiates Screen Ur Buprenorphine Scrn Ur Oxycodone Screen Urine Methadone Screen Urine Fentanyl Screen Acetaminophen < 3 Ur Barbiturates Screen Ur Phencyclidine Scrn Ur Amphetamines Screen U Benzodiazepines Scrn Urine Cocaine Screen U Marijuana (THC) Screen Ethylene Glycol Volat Analys Perform On Ethyl Alcohol Methyl Alcohol Level Influenza Type A (PCR) Influenza Type B (PCR) RSV RNA Qual (PCR) SARS-CoV-2 RNA (RT-PCR) Imaging Radiology Impressions: ITS Impressions Orbit X-Ray 01/01/25 12:55 IMPRESSION: No radiopaque foreign body in the right upper extremity. Electronically signed by: Aldair Mckeon MD 01/01/2025 01:09 PM [facility] Mental Status Exam Mental Status Exam Patient Appearance: Appropriate Level of Consciousness: Awake, Appropriate and Alert Patient Behavior: Appropriate and Talkative Mood Description: Calm Speech Pattern: Clear Hallucinations: None Delusions: Not Present Thought Process: Intact Thought Content: positive for Intact Judgement: Good Medications Medications Current Medications Acetaminophen (Acetaminophen 325 Mg Tablet) 650 mg PO Q6H PRN PRN Reason: Pain, Mild 1-3,fever,headache Albuterol Sulfate (Albuterol Sulfate 90 Mcg 8 Gm Inhaler) 2 puff INHALE QID PRN PRN Reason: shortness of breath or wheezing Aspirin (Aspirin Enteric Coated 81 Mg Tablet.Dr) 81 mg PO DAILY [facility] Last Admin: 01/02/25 09:38 Dose: 81 mg Azithromycin (Azithromycin 250 Mg Tablet) 250 mg PO MOWEFR [facility] Last Admin: 01/01/25 15:27 Dose: 250 mg Buprenorphine/Naloxone (Buprenorphine/Naloxone 8/2 Mg Film) 1 film SUBLINGUAL BID [facility] Last Admin: 01/02/25 10:13 Dose: 1 film Calcium Carbonate (Calcium Carbonate 750 Mg Tab.Chew) 750 mg PO Q4H PRN PRN Reason: Heartburn Enoxaparin Sodium (Enoxaparin Sodium 40 Mg/0.4 Ml Syringe) 40 mg SUBCUT Q24H [facility] Last Admin: 01/01/25 21:28 Dose: 40 mg Gabapentin (Gabapentin 400 Mg Capsule) 400 mg PO BID@0800,1400 [facility] Last Admin: 01/02/25 09:38 Dose: 400 mg Gabapentin (Gabapentin 400 Mg Capsule) 1,200 mg PO BEDTIME [facility] Last Admin: 01/01/25 21:28 Dose: 1,200 mg Levalbuterol HCl (Levalbuterol Hcl 1.25 Mg/3 Ml Vial.Neb) 1.25 mg INHALE BID [facility] Last Admin: 01/02/25 08:36 Dose: 1.25 mg Magnesium Hydroxide (Milk Of Magnesia 30 Ml Oral.Susp) 30 ml PO DAILY PRN PRN Reason: Constipation Melatonin (Melatonin 3 Mg Tablet) 6 mg PO BEDTIME PRN PRN Reason: Insomnia Multivitamins/Vitamin C (Multivitamin Tablet) 1 tab PO DAILY [facility] Last Admin: 01/02/25 09:38 Dose: 1 tab Non-Formulary Medication (Ongkgoatkv-Sugonmzp-Twymerhtrh [Breztri Aerosphere]) 2 inhalation INHALE BID [facility] Omeprazole (Omeprazole 40 Mg Capsule.Dr) 40 mg PO DAILY@0630 [facility] Last Admin: 01/02/25 05:52 Dose: Not Given Ondansetron HCl (Ondansetron Hcl 4 Mg/2 Ml Vial) 4 mg IVPUSH Q8H PRN PRN Reason: Nausea and Vomiting Pharmacy Consult (Consult Rx Etoh Phenob Im/Po) 1 each MISCELLANE ONCE PRN; Protocol PRN Reason: Consult order Sodium Chloride (0.9 % Sodium Chloride Flush 3 Ml Syringe) 3 ml IVFLUSH QSHIFT [facility] Last Admin: 01/02/25 09:40 Dose: 3 ml Allergies Allergies Allergy/AdvReac Type Severity Reaction Status Date / Time ibuprofen [From Motrin] Allergy Severe HIVES Verified 12/31/24 17:03 adhesive tape [Adhesive Tape] Allergy Intermediate SKIN Verified 10/23/24 12:10 BLISTERS Assessment & Plan Assessment & Plan (1) AMS (altered mental status): Qualifiers: Altered mental status type: disorientation Qualified Code(s): R41.0 - Disorientation, unspecified Status: Acute Code(s): R41.82 - Altered mental status, unspecified Assessment and Plan: * AMS resolved. Patient alert, oriented at time of interview. * in remission from all substances per his report for 16 years * continue suboxone--would like to have 16mg dose at one time in AM (instead of BID) * no follow up from [facility] indicated at this time Total time managing care of this patient today __35__ minutes. PMFSH Past Medical History Medical History COPD (chronic obstructive pulmonary disease) Smoking history Diarrhea Intussusception Hx of trauma LORENZO (obstructive sleep apnea) Hx of substance abuse History of alcohol abuse Hx of hepatitis C Incisional pain GERD (gastroesophageal reflux disease) Family History Family History Father Cancer Diabetes Mother Diabetes Cancer Surgical History Surgical History Hx of foot surgery Hx of repair of right rotator cuff History of axillary surgery Hx of knee surgery History of excision of lesion History of esophagogastroduodenoscopy (EGD) Hx of colonoscopy History of Maddy-en-Y gastric bypass Social History Social History Household Members: Significant Other Housing: House Do you presently have visiting nurse or other home services: No Unable to assess alcohol history related to: Unknown Alcohol intake: never Patient Tobacco Use Status: Former Tobacco user Tobacco use type: Cigar Cigarettes Per Day: 10 Smoked in Last 30 Days: No Patient Interested in Nicotine Replacement: No Patient Given Instructions on How to Stop Smoking: No Second Hand Smoke Exposure: No Use of substances other than those prescribed or required for medical reasons: No Currently Displaying Signs/Symptoms of Drug Intoxication Withdrawal: No Any prior treatment program specific to substance use: No Have you been hit, kicked, punched, or otherwise hurt by someone within the past year? If so, by whom?: No Do you feel safe in your current relationship?: Yes Is there a partner from a previous relationship who is making you feel unsafe now?: No Are you made to feel afraid or neglected: No Spiritual Healthcare Practices: none Advance Directives: No Advance Directives Information Provided: Yes Do you have a plan to hurt others: No Plan Recently lost weight without trying: Unsure Eating poorly because of decreased appetite: Yes Nutrition Risks: No Nutritional Risk and Poor intake 0-25% >4 days service: No Current occupational status: unemployed Current occupation: right handed
--- NOTE | 2025-01-02 14:56 | P.PNIM_ITS ---
Subjective Subjective Date of Service: 01/02/25 Interval History: No confusion. MRI no stroke Physical Exam 2 Vital Signs: Vital Signs: Last Vital Signs Temp 97.1 F 01/02/25 07:08 Pulse 60 01/02/25 08:39 Resp 18 01/02/25 08:39 BP 134/69 01/02/25 07:08 Pulse Ox 95 01/02/25 07:08 O2 Del Method Room Air 01/02/25 07:08 BMI result Body Mass Index 35.0 Const: Other: General: AO X 3, no acute distress Resp: CTA bilateral CVS: S1,S2,RRR GI: +BS, NT, no distention Skin: No rash Neuro: motor grossly intact Psych: appropriate affect Objective Data Active Medications Acetaminophen (Acetaminophen 325 Mg Tablet) 650 mg PO Q6H PRN PRN Reason: Pain, Mild 1-3,fever,headache Albuterol Sulfate (Albuterol Sulfate 90 Mcg 8 Gm Inhaler) 2 puff INHALE QID PRN PRN Reason: shortness of breath or wheezing Aspirin (Aspirin Enteric Coated 81 Mg Tablet.) 81 mg PO DAILY [facility] Last Admin: 01/02/25 09:38 Dose: 81 mg Documented By: JUNI Azithromycin (Azithromycin 250 Mg Tablet) 250 mg PO MOWEFR [facility] Last Admin: 01/01/25 15:27 Dose: 250 mg Documented By: RAQUEL Buprenorphine/Naloxone (Buprenorphine/Naloxone 8/2 Mg Film) 1 film SUBLINGUAL BID [facility] Last Admin: 01/02/25 10:13 Dose: 1 film Documented By: JUNI Calcium Carbonate (Calcium Carbonate 750 Mg Tab.Chew) 750 mg PO Q4H PRN PRN Reason: Heartburn Enoxaparin Sodium (Enoxaparin Sodium 40 Mg/0.4 Ml Syringe) 40 mg SUBCUT Q24H [facility] Last Admin: 01/01/25 21:28 Dose: 40 mg Documented By: KEYA Gabapentin (Gabapentin 400 Mg Capsule) 400 mg PO BID@0800,1400 [facility] Last Admin: 01/02/25 09:38 Dose: 400 mg Documented By: JUNI Gabapentin (Gabapentin 400 Mg Capsule) 1,200 mg PO BEDTIME [facility] Last Admin: 01/01/25 21:28 Dose: 1,200 mg Documented By: KEYA Levalbuterol HCl (Levalbuterol Hcl 1.25 Mg/3 Ml Vial.Neb) 1.25 mg INHALE BID [facility] Last Admin: 01/02/25 08:36 Dose: 1.25 mg Documented By: VITOR Magnesium Hydroxide (Milk Of Magnesia 30 Ml Oral.Susp) 30 ml PO DAILY PRN PRN Reason: Constipation Melatonin (Melatonin 3 Mg Tablet) 6 mg PO BEDTIME PRN PRN Reason: Insomnia Multivitamins/Vitamin C (Multivitamin Tablet) 1 tab PO DAILY [facility] Last Admin: 01/02/25 09:38 Dose: 1 tab Documented By: JUNI Non-Formulary Medication (Zpiiirwtyg-Zmqinpjj-Owurwiranf [Breztri Aerosphere]) 2 inhalation INHALE BID [facility] Omeprazole (Omeprazole 40 Mg Capsule.) 40 mg PO DAILY@0630 [facility] Last Admin: 01/02/25 05:52 Dose: Not Given Documented By: KEYA Non-Admin Reason: Patient Refused Ondansetron HCl (Ondansetron Hcl 4 Mg/2 Ml Vial) 4 mg IVPUSH Q8H PRN PRN Reason: Nausea and Vomiting Pharmacy Consult (Consult Rx Etoh Phenob Im/Po) 1 each MISCELLANE ONCE PRN; Protocol PRN Reason: Consult order Sodium Chloride (0.9 % Sodium Chloride Flush 3 Ml Syringe) 3 ml IVFLUSH QSHIFT [facility] Last Admin: 01/02/25 09:40 Dose: 3 ml Documented By: JUNI Labs 01/01/25 04:19 01/01/25 04:19 Microbiology Microbiology Results: Microbiology 12/31/24 18:05 Blood Culture - Preliminary Blood - Venous No growth after 24 hours. 12/31/24 18:05 Blood Culture - Preliminary Blood - Venous No growth after 24 hours. Assessment and Plan (1) Obesity (BMI 30-39.9): Status: Chronic Plan patient is a 64-year-old male with a past medical history significant for alcohol abuse, substance use disorder, Maddy-en-Y gastric bypass, hepatitis-C, intussusception and GERD, presented to the ED due to nausea, vomiting and diarrhea for the past week with tactile fevers and abdominal discomfort as well as altered mental status for the past 2 days. AMS, CVA vs Wernicke vas hepatic encephalopathy CT show hypodense area in right inferior tempral lobe, MRI of the head no stroke, EEG pending Hepatic encephalopathy with ammonia of 70, now 37 after lactulose -continue lacutulose and monitor mental status Alcohol dependency, at [facility] for withdrawal, but he tells me he hasn't drank in 16 year phenobarbital protocol [place] folic acid and thiamine. addinction med consult before discharge Diarrhea d/t noro virus conservative managment, keep up with fluid loss substance use disorder continue home meds once med rec done hepatitis-C LFTs normal unsure if patient was treated GERD continue home meds once med rec done Obesity - BMI 36.5 - weight loss encouraged med rec not complete upon admission full code VTE prophylaxis: Lovenox patient with altered mental status with unknown etiology, CVA versus Wernicke versus hyperammonemia, requiring admission for further workup and monitoring for at least 2 midnights stay. PT eval Quality Stroke Does the patient have a stroke diagnosis?: No VTE Prior VTE?: No VTE Risk Level:: Medical - moderate - high VTE Device Contraindication: Treatment Not Indicated VTE Drug Contraindication: N/A - Med Ordered
[2025-01-02] MEDS: Calcium Carbonate 750 MG TAB.CHEW PO (15:05)
[2025-01-02 15:17] VITALS: BP 147/86; PULSE 75; RESP 17; TEMP 36.2; O2SAT 94
[2025-01-02 19:34] VITALS: BP 167/94; PULSE 75; RESP 18; TEMP 36.3; O2SAT 95
[2025-01-02] MEDS: Gabapentin 400 MG CAPSULE 1200 MG PO (20:04)
[2025-01-02] MEDS: Omeprazole 40 MG CAPSULE.DR PO (20:04)
[2025-01-02] MEDS: Enoxaparin Sodium 40 MG/0.4 ML SYRINGE SUBCUT (20:08)
[2025-01-02 20:13] VITALS: PULSE 77; RESP 18; O2SAT 95
[2025-01-03] VITALS: BP 124/63; PULSE 84; RESP 16; TEMP 36.1; O2SAT 94
[2025-01-03 03:30] VITALS: BP 118/82; PULSE 76; RESP 16; TEMP 36.1; O2SAT 99
[2025-01-03] MEDS: Omeprazole 40 MG CAPSULE.DR PO (05:24)
[2025-01-03 07:11] VITALS: BP 144/81; PULSE 65; RESP 18; TEMP 36.2; O2SAT 99
[2025-01-03] MEDS: levalbuterol HCL 1.25 MG/3 ML VIAL.NEB INHALE (08:03)
[2025-01-03 08:04] VITALS: PULSE 67; RESP 18; O2SAT 95
[2025-01-03] MEDS: Buprenorphine/Naloxone 8/2 mg FILM 2 FILM SUBLINGUAL (08:46)
[2025-01-03] MEDS: Aspirin Enteric Coated 81 MG TABLET.DR PO (09:22)
[2025-01-03] MEDS: 0.9 % Sodium Chloride Flush 3 ML SYRINGE IVFLUSH (09:23)
[2025-01-03] MEDS: Gabapentin 400 MG CAPSULE PO ×2 (09:23→14:45)
[2025-01-03] MEDS: Multivitamin TABLET 1 TAB PO (09:23)
[2025-01-03] MEDS: Azithromycin 250 MG TABLET PO (14:45)
--- NOTE | 2025-01-03 14:52 | PM.DS ---
DS: Providers Provider Date of Service: 01/03/25 Date of admission: 12/31/24 22:10 Date of discharge: 01/03/25 Primary care physician: Brandan Harrison MD Consults: 12/31/24 22:32 Consult to Neurology Routine Consulting Provider: [facility] Reason for consultation: AMS 01/01/25 06:49 Addiction Medicine Routine Consulting Provider: Addiction Covering Reason for consultation: alcohol use disorder DS: Diagnosis Discharge Diagnosis (1) AMS (altered mental status): Status: Acute DS: Summary Hospital Course Hospital Course: Chief Complaint: AMS, nausea, vomiting, diarrhea patient is a 64-year-old male with a past medical history significant for alcohol abuse, substance use disorder, Maddy-en-Y gastric bypass, hepatitis-C, intussusception and GERD, presented to the ED due to nausea, vomiting and diarrhea for the past week with tactile fevers and abdominal discomfort as well as altered mental status for the past 2 days. He denies any alcohol use recently. He also denies any urinary incontinence or gait difficulties but has had some blurry vision. Reports generalized abdominal discomfort and ? right upper quadrant sharp pain. Due to his confusion history is hard to obtain. hospital course: patient is a 64-year-old male with a past medical history significant for alcohol abuse, substance use disorder, Maddy-en-Y gastric bypass, hepatitis-C, intussusception and GERD, presented to the ED due to nausea, vomiting and diarrhea for the past week with tactile fevers and abdominal discomfort as well as altered mental status for the past 2 days. AMS, intially concern for CVA, CT show hypodense area in right inferior tempral lobe, MRI of the head no stroke. Was seen by Neurology and recommended EEG which is done but noot yet read. AMS has resolved, the AMS was likely d/t to hepatic encephalopathy, ammonia level was 70 and treated with lactulose and now within normal and no confusion. He has history of alcohl use but has not drank in 16 years Hepatic encephalopathy with ammonia of 70, now 37 after lactulose -continue lacutulose and monitor mental status Alcohol dependency, at [facility] for withdrawal, but he tells me he hasn't drank in 16 year. Was started on Phenobarbital but this was stopped hepatitis-C LFTs normal unsure if patient was treated Should follow up on outpatient basis.. Will give him lactulose Diarrhea d/t noro virus conservative managment, keep up with fluid loss substance use disorder continue home meds once med rec done GERD continue home meds once med rec done Quality: Safe Use of Opioids Does Pt have an Active Cancer Diagnosis on the Problem List?: No Quality: Stroke Does the patient have a stroke diagnosis?: No Physical Exam Vital Signs: Vital Signs: Last Vital Signs Temp 97.1 F 01/03/25 07:11 Pulse 67 01/03/25 08:04 Resp 18 01/03/25 08:04 BP 144/81 H 01/03/25 07:11 Pulse Ox 99 01/03/25 07:11 O2 Del Method Room Air 01/03/25 07:11 BMI result Body Mass Index 35.0 DS: Data Data Completed and Pending Labs on day of discharge: Preliminary micro results at discharge 12/31/24 18:05 Blood Culture - Preliminary Blood - Venous No growth after 48 hours. 12/31/24 18:05 Blood Culture - Preliminary Blood - Venous No growth after 48 hours. Discharge Plan Discharge Anticipated Discharge Date/Time: 01/03/25 14:53 Patient Disposition: Home, Self-Care Discharge Diagnosis: Altered mental status, hepatic encephalopathy Referrals: Name,MD Brandan [Primary Care Provider] - 1 Week Discharge Medications: [place] 20 gram packet 20 g PO DAILY Qty: 30 0RF Continued gabapentin 800 mg tablet 400 mg PO BID@0800,1400 azithromycin 250 mg tablet 250 mg PO MOWEFR multivitamin Tablet 1 tab PO DAILY buprenorphine-naloxone 8-2 mg film 1 film sublingual BID (DME) lancets [FreeStyle Lancets] 28 gauge misc See Rx Instructions .Route Rx Instructions: As directed gabapentin 800 mg tablet 1,200 mg PO BEDTIME omeprazole 40 mg capsule,delayed release(DR/EC) 40 mg PO DAILY aspirin 81 mg tablet,delayed release (DR/EC) 81 mg PO DAILY Breztri Aerosphere 160-9-4.8 mcg/actuation HFA aerosol inhaler 2 inh inhalation BID Qty: 10.7 0RF albuterol sulfate [Ventolin HFA] 90 mcg/actuation HFA aerosol inhaler 2 puff inhalation QID PRN (Reason: shortness of breath or wheezing) 30 Days Qty: 18 11RF levalbuterol HCl 1.25 mg/3 mL solution for nebulization 1.25 mg inhalation BID 30 Days Qty: 180 6RF Discharge Orders: Discharge Order (Routine); Ordered 01/03/25 Ordered By: David Zavala Diet: Advance to usual diet Activity on Discharge: As tolerated Stand Alone Forms: Patient Portal Discharge page Print Language: Kinyarwanda Care Plan Goals: recovery from change in mental status Health Concerns: hepatic encephalopathy altered mental status Plan of Treatment: take lacutose as recommended for hepatic encephalopathy you had eeg to rule seizure, unfortunately the result is not available until Monday, in the meantime we recommend not driving or operating heavy machinery until result available on MondayJanuary 06, and you will be informed of the result over the phone Assessment: see above
[2025-01-03 15:30] LABS: Glucose, Whole Blood 120 mg/dL (60-115)
--- NOTE | 2025-01-03 15:40 | MHC.CM.PN ---
Pt has been medically cleared for DC, he will go home via private transport, plan is: self care.
[2025-01-03 15:52] VITALS: BP 170/80; PULSE 77; RESP 18; TEMP 36.6; O2SAT 95
== END 2025-01-03 16:45 | disposition home or self-care (01) | DRG 392 ==
LOC: HO.ED 22:01 → HO.EDOVER 22:54 → HO.IMC 01-01 07:42
PROVIDERS: Physician Assistant Medical; Admitting Provider Student in an Organized Health Care Education/Training Program; Emergency Provider Student in an Organized Health Care Education/Training Program; PCP Internal Medicine Geriatric Medicine; Visit Provider Internal Medicine
DX: A08.11 Acute gastroenteropathy due to Norwalk agent (principal); F11.20 Opioid dependence, uncomplicated; E72.20 Disorder of urea cycle metabolism, unspecified; Z98.84 Bariatric surgery status; B19.20 Unspecified viral hepatitis C without hepatic coma; K21.9 Gastro-esophageal reflux disease without esophagitis; F10.21 Alcohol dependence, in remission; E66.01 Morbid (severe) obesity due to excess calories; K76.82 Hepatic encephalopathy; Z68.36 Body mass index [BMI] 36.0-36.9, adult; Z71.3 Dietary counseling and surveillance; Z20.822 Contact with and (suspected) exposure to COVID-19; Z87.891 Personal history of nicotine dependence; Z79.82 Long term (current) use of aspirin; Z79.899 Other long term (current) drug therapy
CPT/HCPCS: 0241U; 36415; 70450; 70551; 72125; 74177; 80048; 80076; 80143; 80179; 80307; 80320; 81001; 82140; 82693; 82947; 83605; 83690; 83735; 84100; 84484; 85025; 87040; 93005; 94640; 95816; 97161; 99285; J1650; J2060; J2560; J3411; Q9967

== ENCOUNTER → 2024-12-31 17:17 | Outpatient (BNV) | payer MEDICARE, MEDICAID, SELFPAY | PROVIDERS: Emergency Provider Student in an Organized Health Care Education/Training Program; PCP Internal Medicine Geriatric Medicine; Visit Provider Student in an Organized Health Care Education/Training Program | DX: M47.816 Spondylosis without myelopathy or radiculopathy, lumbar region (principal); S09.90XA Unspecified injury of head, initial encounter | CPT/HCPCS: 70450; 72125; 74177 ==

== ENCOUNTER → 2024-12-31 18:19 | Outpatient (BNV) | payer MEDICARE, MEDICAID, SELFPAY | PROVIDERS: Admitting Provider Student in an Organized Health Care Education/Training Program; Emergency Provider Student in an Organized Health Care Education/Training Program; PCP Internal Medicine Geriatric Medicine; Visit Provider Internal Medicine Cardiovascular Disease | DX: I45.10 Unspecified right bundle-branch block (principal); I49.9 Cardiac arrhythmia, unspecified | CPT/HCPCS: 93010 ==

== ENCOUNTER 2024-12-31 22:10 | Outpatient (BNV) | payer MEDICARE, MEDICAID, SELFPAY | END 2025-01-02 21:15 | PROVIDERS: Admitting Provider Student in an Organized Health Care Education/Training Program; Emergency Provider Student in an Organized Health Care Education/Training Program; PCP Internal Medicine Geriatric Medicine; Visit Provider Radiology Diagnostic Radiology | DX: R41.82 Altered mental status, unspecified (principal) | CPT/HCPCS: 70551 ==

== ENCOUNTER → 2024-12-31 22:10 | Outpatient (BNV) | payer MEDICARE, MEDICAID, SELFPAY | PROVIDERS: Admitting Provider Student in an Organized Health Care Education/Training Program; Emergency Provider Student in an Organized Health Care Education/Training Program; PCP Internal Medicine Geriatric Medicine; Visit Provider Physician Assistant | DX: E66.9 Obesity, unspecified (principal) | CPT/HCPCS: 99223; 99232; 99233 ==

== ENCOUNTER → 2024-12-31 22:10 | Outpatient (BNV) | payer MEDICARE, MEDICAID, SELFPAY | PROVIDERS: Admitting Provider Student in an Organized Health Care Education/Training Program; Emergency Provider Student in an Organized Health Care Education/Training Program; PCP Internal Medicine Geriatric Medicine; Visit Provider Nurse Practitioner Psychiatric/Mental Health | DX: F10.90 Alcohol use, unspecified, uncomplicated (principal); R41.0 Disorientation, unspecified | CPT/HCPCS: 99222 ==

== ENCOUNTER → 2024-12-31 22:10 | Outpatient (BNV) | payer MEDICARE, MEDICAID, SELFPAY | PROVIDERS: Admitting Provider Student in an Organized Health Care Education/Training Program; Emergency Provider Student in an Organized Health Care Education/Training Program; PCP Internal Medicine Geriatric Medicine; Visit Provider Psychiatry & Neurology Neurology | DX: R41.0 Disorientation, unspecified (principal) | CPT/HCPCS: 99222 ==

== ENCOUNTER 2025-07-29 14:00 | Outpatient (REF) | payer MEDICARE, MEDICAID, SELFPAY ==
--- OUTSIDE RECORDS SUMMARY | 2024-01-29 05:50 | XMS_ITS ---
Author Organization [facility] Address [address] [place] [address] Care Team Providers Care Dobie Worker Name Role Phone Name Brandan HEATH Primary Care Provider Aldair Reyes [phone] REASON FOR VISIT screening Problems Problem Type SNOMED Code ICD Code Onset Dates Problem Status W/U Status Risk Notes Problem Diverticular disease of colon (988322251) Diverticulosis of large intestine without perforation or abscess without bleeding (K57.30) Active confirmed Encounters Encounter Location Date Provider Diagnosis [facility] [place] [address], [place] [phone] 01/29/2024 Aldair Waters Encounter for scre ening colonoscopy Z12.11 ; Colon polyps K63.5 ; Diverticulosis of large intestine without perforation or abscess without bleeding K57.30 and Other hemorrhoids K64.8 Assessments Encounter Date Diagnosis (ICD Code) Assessment Notes Treatment Notes Treatment Clinical Notes Section Notes 01/29/2024 Encounter for screening colonoscopy (ICD-10 - Z12.11) 01/29/2024 Colon polyps (ICD-10 - K63.5) 01/29/2024 Diverticulosis of large intestine without perforation or abscess without bleeding (ICD-10 - K57.30) 01/29/2024 Other hemorrhoids (ICD-10 - K64.8) Plan Of Treatment No Information Progress Notes * MARIAA RICHEY EDOB:1959 (65 yo M)Acc No.[id number]:01/29/2024 COLON WITH MAC Patient: MARIAA CONRAD Provider: Berny Waters MD :1960 A ge:63 Y S ex:Male Date:01/29/2024 Address:[facility] [address] [place], [place] Pcp:Brandan Harrison MD Subjective: * Chief Complaints: * 1 . Screening. * Medical History: Objective: * Vitals: Assessment: * Assessment: 1. E ncounter for screening colonoscopy - Z12.11 (Primary) 2 . C olon polyps - K63.5 3 . D iverticulosis of large intestine without perforation or abscess without bleeding - K57.30 4 . O ther hemorrhoids - K64.8 Plan: * Treatment: * Procedure Codes: 4 5385 LESION REMOVAL COLONOSCOPY * * The named appointment provid er may or may not be the originator of this progress note, and it is not deemed complete until electronically signed by the appointment provider. Sign off status: Pending * Provider: Berny Waters MD Date: 0 01/29/2024 Generated for Eduardo mcmahon/Ronni/Richieitting on: 0 07/29/2025 01:19 PM EDT
--- NOTE | ~2025-07-29 | XR_ITS ---
EXAMINATION: XR KNEE, LEFT CLINICAL INFORMATION: 6 months of left knee pain COMPARISON: 01/14/2019. TECHNIQUE: Four views of the left knee. FINDINGS: No fracture, dislocation, or suspicious bone lesion. There is normal alignment. There is mild tricompartmental osteoarthritis present. There is mild spurring of the tibial spines. There is no evidence of joint effusion. No soft tissue abnormalities. XR/XR knee LT 4V IMPRESSION: 1. No acute findings of the left knee. 2. Mild tricompartmental osteoarthritis. Electronically signed by: Jared Lemos MD 07/29/2025 02:50 PM EDT
--- OUTSIDE RECORDS SUMMARY | 2025-07-29 13:45 | XMS_ITS | Encounter Summary ---
Author Organization [employer] Address [address] [place] [address] Care Team Providers Care Senior Clinical Data Coordinator Name Role Phone Brandan Harrison MD Primary Care Provider Reason for Referral * Consultation (Routine) - Pending Review Specialty Diagnoses / Procedures Referred By Contac t Referred To Contact Pulmonary Disease Diagnoses Chronic obstructive pulmonary disease (COPD) suggested by initial evaluation ([facility]) Brandan Harrison MD [address] [place] [address] Phone: tel: fax: Referral ID Status Reason Start Date Expiration Date Visits Requested Visits Authorized [id number] Pending Review Specialty Services Required 07/29/2025 07/29/2026 1 1 * Consultation (Routine) - Pending Review Specialty Diagnoses / Procedures Referred By Contac t Referred To Contact Orthopaedic Surgery Diagnoses Chronic pain of left knee Brandan Harrison MD [address] [place] [address] Phone: tel: fax: Referral ID Status Reason Start Date Expiration Date Visits Requested Visits Authorized [id number] Pending Review Specialty Services Required 07/29/2025 07/29/2026 1 1 Reason for Visit * Reason Comments Follow-up Encounter Details Date Type Department Care Team ([facility] st Contact Info) Description 07/29/2025 1:45 PM EDT Office Visit [facility] [address] [place], [place] [phone] Name, [place] [address] Chronic pain of left knee (Primary Dx); Chronic obstructive pulmonary disease (COPD) suggested by initial evaluation (CMS/HCC); Situational depression; Homeless single person Social History Tobacco Use Types Packs/Day Years Used Date Smoking Tobacco: Every Day Cigars Smokeless Tobacco: Never Tobacco Cessation:Ready to Q uit: Not Asked; Counseling Given: Not Answered Alcohol Use Standard Drinks/Week Comments Never 0 (1 standard drink = 0.6 oz pur e alcohol) Depression Answer Date Recorded Patient Health Questionnaire-9 Score 9 05/15/2025 Patient Health Questionnaire-9 Score 9 05/15/2025 Last PHQ-9: Questionnaire Data Not on file 0 05/15/2025 Housing Stability Answer Date Recorded What is your housing situation today? I am not s ure 05/15/[address] you li ve. Do you have problems with any of the following? None of the above 05/15/2025 Food Insecurity Answer Date Recorded Within the past 12 months, y ou worried that your food would run out before you got money to buy more: Sometimes True 2024 Within the past 12 months,th e food you bought just didn't last and you didn't have enough money to get more: Sometimes True 05/15/2025 Transportation Answer Date Recorded In the past 12 months, has l ack of transportation kept you from medical appts, meetings, work or from getting things needed for daily living? No 05/15/2025 Utilities Answer Date Recorded In the past 12 months, has t he electric, gas, oil or water company threatened to shut off services in your home? No 05/15/2025 Depression Answer Date Recorded Patient Health Questionnaire-2 Score 0 05/15/2025 Internet Access Answer Date Recorded Internet Access Q1 No 05/15/2025 Internet Access Q2 Not on file 05/15/2025 Sex and Gender Information Value Date Recorded Sex Assigned at Male 09/05/2022 10:17 AM EDT Legal Sex Male 10:17 AM EDT Gender Identity Male 09/05/2022 10:17 AM EDT Sexual Orientation Don't know 09/05/2022 10 :17 AM EDT documented as of this encounter Last Filed Vital Signs Vital Sign Reading Time Taken Comments Blood Pressure 138/72 07/29/2025 1:37 PM EDT Pulse 74 07/29/2025 1:37 PM EDT Temperature 36.2 C (97.1 F) 07/29/2025 1:37 PM EDT Respiratory Rate 12 07/29/2025 1:37 PM EDT Oxygen Saturation 97% 07/29/2025 1:37 PM EDT Inhaled Oxygen Concentration - - Weight 133 kg (292 lb 3.2 oz) 07/29/2025 1:37 PM EDT Height 188 cm (6' 2 ) 07/29/2025 1:37 PM EDT Body Mass Index 37.52 07/29/2025 1:37 PM EDT documented in this encounter Progress Notes * Brandan Harrison, - 07/29/2025 1:45 PM EDT Subjective Patient ID: Raudel Pemberton is a 65 y.o. male who presents for Follow-up. Patient comes for a follow-up visit. Since his last appointment he from his . He has been homeless sleeping in his car and at friends houses. The patient has been depressed but is not interested in meeting with behavioral health or [facility]. Patient is not suicidal. He is not interested in using antidepressants. The patient is not interested in finding about shelters. He explains to me that he is actually looking for an apartment and he has too much stuff at friend houses and storage units. He has been coughin on and off and wheezing. He is a smoker. He has been his inhalers with improvement of symptoms. He requested referral back to pulmonary. The patient also complains of several months of left knee pain. He has no swelling or redness. No history of trauma. He describes pain when he walks. He has difficulties climbing stairs because of this pain. The patient has been wearing a left knee brace with some symptomatic improvement. He is theleft knee pain for at least 8 months. Review of Systems Constitutional: Negative for chills, fatigue and fever. HENT: Negative for sore throat. Respiratory: Positive for cough and shortness of breath. Negative for chest tightness. Cardiovascular: Negative for chest pain, palpitations and leg swelling. Gastrointestinal: Negative for abdominal pain and blood in stool. Musculoskeletal: See HPI Psychiatric/Behavioral: Negative for self-injury and suicidal ideas. Objective Vitals: 07/29/25 1337 BP: 138/72 BP Location: Left arm Patient Position: Sitting BP Cuff Size: Large adult Pulse: 74 Resp: 12 Temp: 97.1 ??F (36.2 ??C) TempSrc: Temporal SpO2: 97% Weight: 292 lb 3.2 oz (133 kg) Height: 6' 2 (1.88 m) Physical Exam Constitutional: Appearance: Normal appearance. Cardiovascular: Rate and Rhythm: Normal rate and regular rhythm. Heart sounds: No murmur heard. Pulmonary: Effort: Pulmonary effort is normal. No respiratory distress. Breath sounds: No stridor. Rhonchi present. No wheezing or rales. Abdominal: Palpations: Abdomen is soft. Tenderness: There is no abdominal tenderness. Musculoskeletal: Right lower leg: No edema. Left lower leg: No edema. Comments: No left knee swelling. Antalgic gait. Left knee pain with active and passive range of motion. Neurological: Mental Status: He is alert. Assessment/Plan Diagnoses and all orders for this visit: Chronic pain of left knee Comments: Evaluation with left knee x-ray and referral to orthopedics after that. Orders: - XR Knee 4+ Views Left; Future - Referral to Orthopaedic Surgery; Future Chronic obstructive pulmonary disease (COPD) suggested by initial evaluation ([facility]) Comments: Patient not ready to quit smoking. Continue current inhalers and referral to pulmonary. Orders: - Referral to Pulmonology; Future - Spiriva HandiHaler 18 MCG inhalation capsule; Place 1 capsule (18 mcg) into inhaler and inhale Once per day. Situational depression Comments: Patient not suicidal. He is not interested in referral to behavioral health. Not interested in starting antidepressants. He is in the process of finding a new apartment on his own. Patient is resourceful and seems to be coping well. Homeless single person Other orders - Symbicort 160-4.5 MCG/ACT inhaler; Inhale 2 puffs 2 times daily. documented in this encounter Plan of Treatment Scheduled Referrals Name Type Priority Associated Diagnoses Orde r Schedule Referral to Orthopaedic Surgery Outpatient Referral Routine Chronic pain of left knee Expected: 07/29/2025 (Approximate), Expires: 07/29/2026 Referral to Pulmonology Outpatient Referral Routine Chronic obstructive pulmonary disease (COPD) suggested by initial evaluation ([facility]) Expected: 07/29/2025 (Approximate), Expires: 07/29/2026 documented as of this encounter Procedures Procedure Name Priority Date/Time Associated Diagnosis Comments XR KNEE 4+ VIEWS LEFT Routine 07/29/2025 2:31 PM EDT Chronic pain of left knee documented in this encounter Results * XR Knee 4+ Views Left (07/29/2025 2:31 PM EDT) Anatomical Region Laterality Modality Lower Extremities, Knee Left Radiogra phic Imaging 07/29/2025 2:31 PM EDT Narrative 07/29/2025 2:53 PM EDT [address] [address] XRay Report Signed Patient: Raudel Pemberton MR#: [id number] : 1960 Acct:[id number] Age/Sex: 65 / M ADM Date: 07/29/25 Loc: HO.HHCX Attending Dr: Brandan Harrison MD Ordering Physician: Brandan Harrison MD Date of Service: 07/29/25 Procedure(s): XR knee LT 4V Accession Number(s): [id number] cc: Brandan Harrison MD Reason for Exam: 6 months of left knee pain EXAMINATION: XR KNEE, LEFT CLINICAL INFORMATION: 6 months of left knee pain COMPARISON: 01/14/2019. TECHNIQUE: Four views of the left knee. FINDINGS: No fracture, dislocation, or suspicious bone lesion. There is normal alignment. There is mild tricompartmental osteoarthritis present. There is mild spurring of the tibial spines. There is no evidence of joint effusion. No soft tissue abnormalities. XR/XR knee LT 4V IMPRESSION: 1. No acute findings of the left knee. 2. Mild tricompartmental osteoarthritis. Electronically signed by: Jared Lemos MD 07/29/2025 02:50 PM EDT Dictated By: Jared Lemos MD Signed By: <Electronically signed by Jared Lemos MD in OV> 07/29/25 1450 DD/ 1431 TD/TT: 07/29/25 143 [employer] Lead: Procedure Note Amber, Image - 07/29/[address] [address] XRay Report Signed Patient: Raudel Pemberton LMR#: [id number] : 1960cct:[id number] Age/Sex: 65 / MADM Date: 07/29/25 Loc: HO.HHCX Attending Dr: Brandan Harrison MD Ordering Physician: Brandan Harrison MD Date of Service: 07/29/25 Procedure(s): XR knee LT 4V Accession Number(s): [id number] cc: Brandan Harrison MD Reason for Exam: 6 months of left knee pain EXAMINATION: XR KNEE, LEFT CLINICAL INFORMATION: 6 months of left knee pain COMPARISON: 01/14/2019. TECHNIQUE: Four views of the left knee. FINDINGS: No fracture, dislocation, or suspicious bone lesion. There is normal alignment. There is mild tricompartmental osteoarthritis present. There is mild spurring of the tibial spines. There is no evidence of joint effusion. No soft tissue abnormalities. XR/XR knee LT 4V IMPRESSION: 1. No acute findings of the left knee. 2. Mild tricompartmental osteoarthritis. Electronically signed by: Jared Lemos MD 07/29/2025 02:50 PM EDT Dictated By: Jared Lemos MD Signed By: <Electronically signed by Jared Lemos MD in OV> 07/29/25 1450 DD/ 1431 TD/TT: 07/29/25 143 [employer] Lead: Brandan Harrison MD IMG XR PROCEDURES Final Result documented in this encounter Visit Diagnoses Diagnosis Chronic pain of left knee- Primary Chronic obstructive pulmonary disease (COPD) suggested by initial evaluation ([facility]) Situational depression Homeless single person documented in this encounter Additional Health Concerns Assessment Noted Time PHQ-9 Depression Total Score: 9 05/15/20 25 3:47 PM EDT documented as of this encounter Care Teams Senior Clinical Data Coordinator Relationship Specialty Start Date End Date Name, MD Brandan [address] [place] [address] PCP - General Family Medicine 12/15/15 documented as of this encounter
--- OUTSIDE RECORDS SUMMARY | 2025-07-29 17:15 | XMS_ITS | Encounter Summary ---
Author Organization [employer] Address [address] [facility] [address] [place] [address] Care Team Providers Care Organ Pipe Maker Metal Name Role Phone Name, Brandan HEATH Primary Care Provider [phone] Reason for Visit * Reason Onset Date Comments chart prep 07/28/2025 Encounter Details Date Type Department Care Team ([facility] st Contact Info) Description 07/28/2025 Telephone [facility]INE [address] [place], [place] [phone] Carlos Wolf MA chart prep Social History Tobacco Use Types Packs/Day Years [...] encounter Miscellaneous Notes * Telephone Encounter - Carlos Wolf MA - 07/28/2025 10:51 AM EDT Chart Prep Labs: done Images: done Referrals: Pending referrals- sleep medicine, [facility] sleep medicine staff states pt haven't got seen since the last time they called pt to schedule appointment back in August of last year , staff states pt was in hospital if provider would like to send another referral so they could schedule pt Vaccines due: Covid, Flu, PCV20, RSV, and Zoster Screenings: not applicable Overdue care gaps: Oral health screening documented in this encounter Plan of Treatment Not on file documented as of this encounter Visit Diagnoses Not on filedocumented in this encounter Additional Health Concerns Assessment Noted Time PHQ-9 Depression Total Score: 9 05/15/20 25 3:47 PM EDT documented as of this encounter Care Teams Organ Pipe Maker Metal Relationship Specialty Start Date End Date Name, MD Brandan [address] [place] [address] PCP - General Family Medicine 12/15/15 documented as of this encounter
--- OUTSIDE RECORDS SUMMARY | 2025-07-29 17:15 | XMS_ITS | Encounter Summary ---
Author Organization [employer] Address [address] [place] [address] Care Team Providers Care Dining Car Waiter/Waitress Name Role Phone Name, Brandan HEATH Primary Care Provider [phone] Encounter Details Date Type Department Care Team (Latest Contact Info) Description 07/29/2025 Travel Social History Tobacco Use Types Packs/Day Years [...] as of this encounter Plan of Treatment Not on file documented as of this encounter Visit Diagnoses Not on filedocumented in this encounter Additional Health Concerns Assessment Noted Time PHQ-9 Depression Total Score: 9 05/15/20 25 3:47 PM EDT documented as of this encounter Care Teams Dining Car Waiter/Waitress Relationship Specialty Start Date End Date Name, MD Brandan [address] [place] [address] PCP - General Family Medicine 12/15/15 documented as of this encounter
--- OUTSIDE RECORDS SUMMARY | 2025-07-29 17:16 | XMS_ITS | Encounter Summary ---
Author Organization [employer] Address [address] [place] [address], [place] [address] Care Team Providers Care Shot Blaster Name Role Phone Name, Brandan HEATH Primary Care Provider [phone] Reason for Visit * Reason Onset Date Comments status 10/24/2022 Encounter Details Date Type Department Care Team ([facility] st Contact Info) Description 10/24/2022 Telephone [facility] MEDICINE [address] [place], [place] [phone] Name, MD Brandan [address] [place] [address] status Social History Tobacco Use Types Packs/Day [...] over to L&C Please contact pt at [phone] documented in this encounter Plan of Treatment Not on file documented as of this encounter Visit Diagnoses Not on filedocumented in this encounter Care Teams Shot Blaster Relationship Specialty Start Date End Date Name, MD Brandan [address] [place] [address] PCP - General Family Medicine 12/15/15 documented as of this encounter
--- OUTSIDE RECORDS SUMMARY | 2025-07-29 17:16 | XMS_ITS | Clinical Summary ---
Author Organization [address] [place] [address] [place] [phone] Phone Care Team Providers Care Pharmacy Informaticist Name Role Phone Name, Brandan HEATH Primary Care Provider [phone] Allergies Active Allergy Reactions Criticality Noted Date [...] breath. 7 g 5 12/21/19 26 Active Active Problems Problem Noted Date Diagnosed Date Venous insufficiency 10/20/2014 Asthma 05/15/2014 Morbid obesity ([facility] V24, [facility] V28) 2013 Chronic cholecystitis 06/25/2012 Overview (09/25/2024): S/p cholecystectomy CTS (carpal tunnel syndrome) 09/01/2011 Depression 09/01/2011 Gallstone 08/12/2010 Insomnia 08/12/2010 Cocaine abuse, episodic use ([facility] V24, [facility]/ C V28) 03/16/2009 Alcoholism ([facility] V24, [facility] V28) 07/25/2008 Bipolar affective disorder ([facility] V24, [facility] V28) 07/25/2008 Jaw pain 07/25/2008 Overview (09/25/2024): Historical jaw fracture Acute gastric ulcer 04/27/2007 Overview (09/25/2024): WITHOUT MENTION OF HEMORRHAGE OR PERFORATION Related to gastric bypass IMO update Chronic hepatitis C virus in fection ([facility] V24, [facility] V28) 04/27/2007 Overview (09/25/2024): Chronic hepatitis C without mention of hepatic coma Genotype 1B (2003) and pos viral load (2013). Lumbago 04/27/2007 Urinary frequency 04/27/2007 Peripheral neuropathy 04/27/2007 Immunizations Name Administration Dates Next Due Hepatitis A Adult (Havrix; V aqta) 19yo and older 04/19/2011,10/15/2010 Hepatitis B (Pthggmq-N-Axsfc , Recombivax HB-Adult) 19yo and older 04/19/2011,11/16/2010,10/15/2010 Influenza trivalent, 0.5mL, preservative free (Fluarix; FluLaval; Fluzone) ages 6mo and older (Afluria) 3 years and older 07/15/2015,09/01/2011 Pneumococcal polysaccharide 23 valent (Pneumovax 23) 2yo and older 08/12/2010 Surgical History Surgery Date Site/Laterality Comments STOMACH SURGERY PROCEDURE: NE UNLISTED PROCEDURE STOMACH; COMMENT: bariatric surgery and reversal COLONOSCOPY 2012 PROCEDURE: NE COLONOSCOPY FLX DX W/COLLJ SPEC WHEN PFRMD; COMMENT: normal CHOLECYSTECTOMY PROCEDURE: HISTORICAL CHOLECYSTECTOMY SHOULDER ARTHROSCOPY 08/31/2021 Right PROCEDURE: NE SURGICAL ARTHROSCOPY SHOULDER W/LSS&RESCJ ADS; COMMENT: Right shoulder Subacromial Decompression, Rotator Cuff Repair, Labral Debridement and Rotator Cuff Augmentation with bioinductive implant with Dr. Billings Medical History Medical History Date Comments Essential hypertension, benign 04/27/2007 D X:Essential hypertension, benign Hepatitis C carrier (CMS/HCC V24, CMS/HCC V28) 04/27/2007 DX:Hepatitis C carrier (HCC) Acute gastric ulcer without [...] 80 12/21/2024 10:10 PM EST Temperature 37.1 C (98.8 F) 12/21/2024 7:41 PM EST Respiratory Rate 20 12/21/2024 10:10 PM EST [...] (2 of 2) 08/01/2019 06/06/2019 RSV Immunization Adult Patients (1 - Risk 60-74 years 1-dose series) 2021 Colorectal Cancer Screening: Colonoscopy 10/15/2022 Medicare Annual Wellness Visit 10/15/2022 Social Influencers of Health Screening 10/15/2022 Depression Screening 11/06/2024 COVID-19 Vaccine (2 - season) 2025 01/04/2022 Influenza Vaccine (#1) 2025 9, 07/25/2018, 08/01/2017, Additional history exists DTaP,Tdap,and Td Vaccines (2 - Td or Tdap) 08/17/2026 08/17/2016 Cholesterol Screening (Lipid Panel) 03/05/2029 03/05/2024, 08/13/2010 Hepatitis C Screening Completed 01/01/2004 Hepatitis A Vaccines Completed 04/19/2011, 10/15/20 10 [...] age to complete this topic Meningococcal B Vaccine Aged Out No l onger eligible based on patient's age to complete this topic RSV Immunization Patients Under 20 months Aged Out No longer eligible based on patient's age to complete this topic Varicella Vaccines Aged Out No longer eligible based on patient's age to complete this topic Procedures Procedure Name Priority Date/Time Associated Diagnosis Comments HIV SCREENING Routine 08/13/2010 LIPID PANEL Routine 08/13/2010 HEPATITIS C SCREENING Routine 01/01/2004 from Last 3 Months or Most Recently Relevant to Health Maintenance Results * HIV Screening (08/13/2010) Pathologist [facility] HIV Screening Abstracted [facility] Provider HEALTH MAINTENANCE Final Result * (ABNORMAL) Lipid panel (08/13/2010) [facility] LDL/HDL Ratio 6(A) 0 - 4 Triglycerides 156(A) 0 - 150 mg/dL Cholesterol 216(A) 0 - 200 mg/dL HDL 35(A) >=40 mg/dL LDL Cholesterol 150(A) 0 - 100 mg/dL Blood Venous blood specimen / Unknown [facility] Provider LAB BLOOD ORDERABLES Zeynep l Result * Hepatitis C Screening (01/01/2004) Pathologist [facility] Hepatitis C Screening Abstracted [facility] Provider HEALTH MAINTENANCE Final Result from Last 3 Months or Most Recently Relevant to Health Maintenance Insurance [id number] [place] [phone] MEDICAID [facility] MEDICARE ADVANTAGE on file Advance Directives Documents on File Type Date Recorded Patient Matching Machine Operator Expl anation Health Care Decision (hx) 04/12/2022 AD LAMB DIRECTIVE Health Care Decision (hx) 04/12/2022 AD LAMB DIRECTIVE Care Teams Pharmacy Informaticist Relationship Specialty Start Date End Date Name, MD Brandan [address] [place], [place] PCP - General 04/20/07
--- OUTSIDE RECORDS SUMMARY | 2025-07-29 17:16 | XMS_ITS | Encounter Summary ---
Author Organization [employer] Address [address] [facility] [address] [place] [address] Care Team Providers Care Group Program Manager Name Role Phone Name, Brandan HEATH Primary Care Provider [phone] Encounter Details Date Type Department Care Team ([facility] st Contact Info) Description 10/28/2022 Orders Only [facility] [address] [place] [address] Krystina Michelle LPN Social History Tobacco Use [...] on filedocumented in this encounter Care Teams Group Program Manager Relationship Specialty Start Date End Date Name, MD Brandan [address] [place] [address] PCP - General Family Medicine 12/15/15 documented as of this encounter
--- OUTSIDE RECORDS SUMMARY | 2025-07-29 17:16 | XMS_ITS | Patient Health Record ---
Author Organization [facility] Address [address] [place] [address] Care Team Providers Care Insulation Extruder Operator Name Role Phone Name Brandan HEATH Primary Care Provider Aldair Reyes Unavailable [phone] Allergies Allergen (clinical drug ingredient) Drug/Non Drug Allergy documented on EMR Reaction Allergy Type Onset Date Status Motrin Unknown Drug Allergy Active surgical tape (uncoded) Unknown Allergy Active Reason For Referral No Information Medications Medication SIG (Take, Route, Frequency, Duration) Notes [...] Mens VitaCraves - as directed Orally Active Immunizations Vaccine Route Administration Date Status Comme nts Flu vaccine no Preserv 3 and > Unknown 07/16/2014 Admin istered Influenza Unknown 09/12/2018 Administered Influenza Unknown 08/09/2023 Refused Social History Tobacco Use: Social History Observation Description Date Details (start date - stop date) Current Smoker NA - NA Tobacco Use/Smoking Question Answer Notes Patient is a current smoker How often do you smoke cigarettes? every day How many cigarettes a day do you smoke? 6-10 How soon after you wake up do you smoke your fir st cigarette? after 60 minutes Are you interested in quitting? Ready to quit Section Notes: Smoker; alcohol and substanc e abuse as above Smoker; hx of alcohol and robert bstance abuse with sobriety for 9 yrs and 11yrs, respectfully Smokes cigars and medical ma rijuana; hx of alcohol and substance abuse with sobriety for 9 yrs and 11yrs, respectively Problems Problem Type SNOMED Code ICD Code Onset Dates Problem Status W/U Status Risk Notes Problem 360905292 Colon cancer screening (Z12.11) Active confirmed Problem Diverticular disease of colon (357645688) Diverticulosis of large intestine without perforation or abscess without bleeding (K57.30) Active confirmed Problem 494573633 Early satiety (R68.81) Active confirmed Problem 272259398 Gastroesophageal reflux disease without esophagitis (K21.9) Active confirmed Problem 22520733178942 History of hepatitis C (Z86.19) Active confirmed Problem 467181607 Abdominal pain, generalized (R10.84) Active confirmed Plan Of Treatment Pending Test Test Name Order Date ELECTROLYTES [...] Date Coverage End Date HU[employer] [address] [address] [facility] [address] [id number] MARIAA RICHEY Self - patient is the insured MEDICAID [facility] [address] [place] [address] [id number] MARIAA RICHEY Self - patient is the insured Medical (General) History Medical History History ICD Code Denies PR,DM,CVA,Lung disease,renal dise ase Negative screening colonosco py at [facility] in 02/[address] [facility] Chronic Hep C-Genotype 1B--s /p treatment with Harvoni at [facility]--he reports success and had normal LFT's in 03/2019 Substance abuse and EtOH abuse--sober fo r 5-6 years Diagnosed with sleep apnea--doesn't use a CPAP mask though UGI bleed in 2004 in relatio n to an anastomotic ulcer from his previous gastric bypass surgery--upper endoscopy at that time revealed esophagitis EGD in 04/2015--gastritis, no ulcers, nor mal and patent anastomosis EGD in 2019 negative for esophagitis, PU D, gastitis; no definitive Hpylori Surgical History Surgery Date(Month/Year) Gastric bypass for weight lo ss in 1996--had an anastomotic ulcer with bleeding and an anastomotic stricture with corrective surgery by Dr. Vaz at [facility] in [place] in 2004--he had an UGI in 2007 showing a patent anastomosis Facial reconstruction surgery after trau ma Throat lesions removed Knee surgery on the right for a benign tumor Left axilla surgery for a fatty tumor Rotator cuff on right 2020 Right foot surgery for a Hammer toe 07/26 23
--- OUTSIDE RECORDS SUMMARY | 2025-07-29 17:16 | XMS_ITS | Encounter Summary ---
Author Organization [employer] Address [address] [facility] [address] [place] [address] Care Team Providers Care Mowing Machine Operator Name Role Phone Name, Brandan HEATH Primary Care Provider [phone] Encounter Details Date Type Department Care Team (Late st Contact Info) Description 05/26/2023 Orders Only [facility] [address] [place] [address] Rowan Pepe FNP Social History Tobacco Use Types Packs/Day Years [...] 0 AM EDT 01/29/2024 10:58 AM EDT [facility] LABS - 01/31/2024 8:59 AM EDT ----- ------- Name: Raudel Pemberton Age/Sex: 63/M : 1960 Unit#: [id number] Attend Dr: Aldair Waters Re01/29/24 Status: [facility] Location: [facility] Disch: ----- ------- SPEC : [id number] RECD: 01/29/24-1058 STATUS: TANIKA MILIAN NUM: [id number] ABDI: 01/29/24-[address] [facility] [address]: Aldair Waters ENTERED: 01/29/24-1106 SP TYPE: Surgical OTHR DR: Brandan Harrison MD ORDERED: HE Stain/3, Gross Micro L4 Diagnosis Colon, polypectomies: Fragments of tubular adenomata; negative for high-grade dysplasia or carcinoma. Clinical History Pre-Op Dx: Screening Post-Op Dx: Diverticulosis, polyps Microscopic Description Microscopic sections reviewed. Material Received Colon polyps Gross Description Received in formalin labeled colon polyps are 3 lawton and lawton-pink irregular and papular tissue fragments ranging from 0.25-0.5 cm, submitted in toto in a cassette labeled A. CEDS Copies To: Brandan Harrison MD [address] [place] [id number] Waters,[address] [place] [address] ----- ------- Signed (signature on file) Andrew Henry MD 01/31/24 0859 ----- ------- END OF REPORT us Generic External Data Provider LAB BLOOD ORDERAB LES Final Result [facility] [address] [place] [phone] documented in this encounter Visit Diagnoses Not on filedocumented in this encounter Care Teams Mowing Machine Operator Relationship Specialty Start Date End Date Name, MD Brandan [address] [place] [address] PCP - General Family Medicine 12/15/15 documented as of this encounter
--- OUTSIDE RECORDS SUMMARY | 2025-07-29 17:16 | XMS_ITS | Clinical Summary ---
Author Organization [employer] Address [address] [facility] 7t [place] [address] Care Team Providers Care Digital Forensic Analyst Name Role Phone Name, Brandan HEATH Primary Care Provider [phone] Allergies Active Allergy Reactions Criticality Noted Date Comments Ibuprofen 01/25/2016 Other reaction(s): hives & urticaria Wound Dressing Adhesive 07/07/2017 Other reaction(s): tape eats through my skin Medications * This document contains information received from the source organization and may not represent a complete record from that organization. Lancets (onetouch ultrasoft) lancetsIndicat ions:Hypoglyce jay 1 each by Other route 3 times daily. Use as instructed 100 each 11 12/13/19 23 Active glucose blood test stripIndicatio ns:Hypoglycemi a 1 each by Other route 3 times daily. Use as instructed 100 each 11 12/13/19 23 Active Blood Glucose Monitoring Suppl (Accu-Chek Ayla Plus) w/Device kitIndications :Hypoglycemia Use as directed 1 kit 12/13/19 23 Active fluticasone (Flonase) 50 MCG/ACT nasal sprayIndicatio ns:Seasonal allergies Administer 2 sprays into each nostril Once per day. Shake gently. Before first use, prime pump. After use, clean tip and replace cap. 16 g 2 03/04/20 24 Active cetirizine (ZyrTEC) 10 MG tabletIndicati ons:Seasonal allergies TAKE 1 TABLET BY MOUTH EVERY DAY 90 tablet 1 05/27/20 24 Active buPROPion SR (Wellbutrin SR) 150 MG 12 hr tabletIndicati ons:Depression , unspecified depression type TAKE 1 TABLET BY MOUTH TWICE DAILY 60 tablet 2 07/25/20 24 Active Aspirin Low Dose 81 MG EC tablet Take 81 mg by mouth Once per day. 08/26/20 24 Active atorvastatin (Lipitor) 40 MG tablet Take 1 tablet by mouth Once per day. 08/26/20 24 Active metoprolol succinate XL (Toprol-XL) 25 MG 24 hr tablet Take 1 tablet by mouth Once per day. 08/26/20 24 Active nicotine (Nicoderm, Step 1) 21 MG/24HR patch Place 1 patch on the skin 1 (one) time each day at the same time. 08/26/20 Active Buprenorphine HCl-Naloxone HCl (Suboxone) 8-[address] 2 Film under the tongue Once per day. Active omeprazole (PriLOSEC) [address] capsuleIndicat ions:Depressio n, unspecified depression type TAKE 1 CAPSULE BY MOUTH EVERY DAY BEFORE A MEAL 90 capsule 04/18/20 25 Active albuterol 108 (90 Base) MCG/ACT inhaler Inhale 2 puffs every 6 (six) hours if needed for wheezing. 18 g 11 05/15/20 25 026 Active gabapentin (Neurontin) 800 MG tablet TAKE 1 TABLET BY MOUTH EVERY MORNING, 1 TABLET AT LUNCH AND 1 1/2 TABLETS AT BEDTIME 110 tablet 4 06/10/20 25 Active Symbicort 160-4.5 MCG/ACT inhaler Inhale 2 puffs 2 times daily. 1 each 2 07/29/20 25 Active Spiriva HandiHaler 18 MCG inhalation capsuleIndicat ions:Chronic obstructive pulmonary disease (COPD) suggested by initial evaluation ([facility]) Place 1 capsule (18 mcg) into inhaler and inhale Once per day. 30 capsule 3 07/29/20 25 Active Symbicort 160-4.5 MCG/ACT inhaler Inhale 2 puffs 2 times daily. 08/26/20 24 025 Discontinued(Re order (will not trigger notification to Pharmacy)) Spiriva HandiHaler [address] 1 capsule into inhaler and inhale Once per day. 08/26/20 24 025 Discontinued(Re order (will not trigger notification to Pharmacy)) Active Problems Problem Noted Date Diagnosed Date [...] 01/25/2016 Overview (08/20/2024): Patient was treated at [facility] by ID. Records are in [employer]. [...] 01/25/2016 08/20/2024 Opioid abuse 01/25/2016 08/20/2024 Encounters * This document contains information received from the source organization and may not represent a complete record from that organization. Date Type Department Care Team Description 07/29/2025 1:45 PM EDT Office Visit [address] [address] Brandan Harrison MD Chronic pain of left knee (Primary Dx); Chronic obstructive pulmonary disease (COPD) suggested by initial evaluation (CMS/HCC); Situational depression; Homeless single person 07/29/2025 Travel 07/28/[address] [address] Carlos Wolf MA chart prep 06/09/2025 Refill [facility] [address] [place] [phone] Brandan Harrison MD 05/16/2025 Patient Outreach [address] [address] Brandan Harrison MD Care Coordination ([facility] outreach for [place] housing search-LVM ) 05/15/2025 3:15 PM EDT Office Visit [address] [address] Brandan Harrison MD Situational stress (Primary Dx); Housing insecurity; Altered mental status, unspecified altered mental status type 05/15/2025 Travel 04/30/2025 Telephone [facility] [address] [place], [place] [phone] Carlos Wolf MA appt change from Last 3 Months Immunizations Immunization Administration Dates Next Due Hep A, Adult [...] Mass Index 37.52 07/29/2025 1:37 PM EDT Plan of Treatment Health Maintenance Due Date Last Done Comments CT Colonography 1960 FIT DNA/Cologuard 1960 FIT 1960 FOBT 1960 Sigmoidoscopy 1960 Pneumococcal Vaccine: 50+ Years (2 of 2 - PCV) 08/12/2011 08/12/2010 Zoster Vaccines (2 of 2) 08/01/2019 06/06/2019 RSV Patients and Patients Aged 60 years or older (1 - Risk 60-74 years 1-dose series) 2021 COVID-19 Vaccine (2 - season) 2025 01/04/2022 Influenza Vaccine (#1) 2025 9, 08/01/2019, 07/25/2018, Additional history exists Depression Monitoring 11/15/2025 05/15/2025, 025 Alcohol/Substance Use Screening 05/15/2026 05/15/2025 Disability Screening 05/15/2026 05/15/2025 SDOH Screening 05/15/2026 05/15/2025 Tobacco Screening 07/29/2026 07/29/2025 DTaP/Tdap/Td Vaccines (2 - Td or Tdap) [...] PM EDT Chronic pain of left knee LIPID PANEL, STANDARD Routine 03/05/2024 9:18 AM EDT Weight gain HM COLONOSCOPY Routine 01/29/2024 HIV 1/2 ANTIGEN/ANTIBODY, FOURTH GENERATION W/RFL Routine 05/05/2023 9:58 AM EDT Weight loss from Last 3 Months or Most Recently Relevant to Health Maintenance Results * XR Knee 4+ Views Left (07/29/2025 2:31 PM EDT) Anatomical Region Laterality Modality Lower Extremities, Knee [facility] 07/29/2025 2:31 PM EDT Narrative 07/29/2025 2:53 PM EDT [facility] [address] [place] [address] XRay Report Signed Patient: Raudel Pemberton MR#: [id number] : 1960 Acct:[id number] Age/Sex: 65 / M ADM Date: 07/29/25 Loc: [facility] Attending Dr: Brandan Harrison MD Ordering Physician: Brandan Harrison MD Date of Service: 07/29/25 Procedure(s): XR knee LT 4V Accession Number(s): [id number] cc: Brandan Harrison MD Reason for Exam: [...] OV> 07/29/25 1450 DD/ 1431 TD/TT: 07/29/25 1439 Instructor Private: Procedure Note Donotuseinterpreter, Image - 07/29/2025 [facility] [address] [place] [address] XRay Report Signed Patient: Raudel Pemberton LMR#: [id number] : 1960cct:[id number] Age/Sex: 65 / MADM Date: 07/29/25 Loc: [facility] Attending Dr: Brandan Harrison MD Ordering Physician: Brandan Harrison MD Date of Service: 07/29/25 Procedure(s): XR knee LT 4V Accession Number(s): [id number] cc: Brandan Harrison MD Reason for Exam: [...] Jared Lemos MD 07/29/2025 02:50 PM EDT RP Dictated By: Jared Lemos MD Signed By: <Electronically signed by Jared Lemos MD in OV> 07/29/25 1450 DD/ 1431 TD/TT: 07/29/25 1439 Instructor Private: Brandan Harrison MD [facility]R PROCEDURES Final Result * (ABNORMAL) Lipid Panel, Standard (03/05/2024 9:18 AM EDT) Triglycerides 52 <150 mg/dL [facility] Comment:Desirable Triglyceri de: less than 150 mg/dLBorderline High Triglyceride 150-199 mg/dLHigh Triglyceride: 200-499 mg/dLVery High Triglyceride: greater than or equal to 5OO mg/dL Cholesterol 173 <200 mg/dL [facility] Comment:Desirable Cholestero l: less than 200 mg/dLBorderline High Cholesterol: 200-239 mg/dLHigh Cholesterol: greater than 239 mg/dL LDL Cholesterol Calculated 113(H) <100 mg/dL [facility] Comment:Desirable LDL: less than 100 mg/dLNear Optimal/Above Optimal LDL: 110- 129 mg/dLBorderline High LDL: 130-159 mg/dLHigh LDL: 160-189 mg/dLVery High LDL: greater than or equal to 190 mg/dL HDL Cholesterol 50 >40 mg/dL [facility] Comment:Desirable HDL: great er than 40 mg/dL Note: This HDL assay may give artificially low results in patients with liver disease. Blood Venous blood specimen / Unknown 03/05/2024 9:18 AM EDT 03/05/2024 9:18 AM EDT Result [facility] Brandan Harrison MD LAB BLOOD ORDERABLES Final Resul t [facility] [address] [place] [phone] * (ABNORMAL) Hm Colonoscopy (01/29/2024) Colonoscopy Abnormal(A ) Normal Result [facility] Brandan Harrison MD HEALTH MAINTENANCE Edited Result - Final * HIV-1/2 Antigen and Antibodies, Fourth Generation, with Reflexes (05/05/2023 9:58 AM EDT) HIV Antigen/Antibody, 4th Generation NON-REAC TIVE NON-REAC TIVE [facility] Comment: HIV-1 antigen and HIV-1/HIV-2 antibodies were not detected. There is no laboratory evidence of HIV infection. PLEASE NOTE: This information has been disclosed to you from records whose confidentiality may be protected by state law. If your state requires such protection, then the state law prohibits you from making any further disclosure of the information without the specific written consent of the person to whom it pertains, or as otherwise permitted by law. A general authorization for the release of medical or other information is NOT sufficient for this purpose. For additional information please refer to http://education.[employer].Convercent/faq/PUT158 (This link is being provided for informational/ educational purposes only.) The performance of this assay has not been clinically validated in patients less than 2 years old. Blood Venous blood specimen / Unknown 05/05/2023 9:58 AM EDT 05/05/2023 9:58 AM EDT Narrative [facility] - 05/10/2023 9:05 AM EDT FASTING:NO FASTING: NO Leena Dodd MD LAB BLOOD ORDERABLES Fin al Result [facility] [address], [place] [address] [facility] [address] [place] [address] from Last 3 Months or Most Recently Relevant to Health Maintenance Insurance [facility] STANDARD HUMANA PPO Care Teams Digital Forensic Analyst Relationship Specialty Start Date End Date Name, MD Brandan [address] [place] [phone] PCP - General Family Medicine 12/15/15
--- OUTSIDE RECORDS SUMMARY | 2025-07-29 17:16 | XMS_ITS | Encounter Summary ---
Author Organization [employer] Address [address] [place] [address] [address] [place] [address] Care Team Providers Care Red Cap Name Role Phone Name, Brandan HEATH Primary Care Provider Encounter Details Date Type Department Care Team (Late st Contact Info) Description 11/09/2022 Telephone [facility] [address] [place], [place] [phone] Name, MD Brandan [address] [place] [address] Social History Tobacco Use Types Packs/Day Years [...] on filedocumented in this encounter Care Teams Red Cap Relationship Specialty Start Date End Date Name, MD Brandan [address] [place] [phone] PCP - General Family Medicine 12/15/15 documented as of this encounter
== END 2025-07-29 14:01 | disposition home or self-care (01) ==
LOC: HO.HHCX 14:00
PROVIDERS: PCP Internal Medicine Geriatric Medicine; Visit Provider Internal Medicine Geriatric Medicine
DX: M25.562 Pain in left knee (principal); G89.29 Other chronic pain
CPT/HCPCS: 73564

== ENCOUNTER → 2025-07-29 14:05 | Outpatient (BNV) | payer MEDICARE, MEDICAID, SELFPAY | PROVIDERS: PCP Internal Medicine Geriatric Medicine; Visit Provider Radiology Diagnostic Radiology | DX: M25.562 Pain in left knee (principal) | CPT/HCPCS: 73564 ==

== ENCOUNTER 2025-08-26 13:48 | Outpatient (AMB) | payer MEDICARE, MEDICAID, SELFPAY ==
--- NOTE | 2025-08-26 13:55 | MHC.OFFVIS ---
Vital Signs 08/26/25 13:57 Height 6 ft 2 in Weight 281 lb BMI 36.1 Intake Visit Reasons: Left knee pain Intake Note: Raudel is a 65 year old man who presents with complaints of progressively worsening left knee pain. He describes his pain as sharp in nature. His pain has gotten worse over the last few years in spite of continued non operative treatments. He has had cortisone injections in the past which gave him minimal relief. He denies any locking or giving way. He has failed the last 3 months of conservative treatment which has included Tylenol, a home exercise program and physical therapy exercises. The patient states that he is not able to tolerate anti-inflammatory medicines. At this point his left knee pain is interfering with his activities of daily living and his ability to sleep well through the night. The patient wishes to hold off on surgery if at all possible. Allergies ibuprofen (From Motrin) Allergy (Severe, Verified 08/26/25 14:02) HIVES adhesive tape (Adhesive Tape) Allergy (Intermediate, Verified 08/26/25 14:02) SKIN BLISTERS Medication List - Last Reconciled 08/26/25 by Eddi Shea MD albuterol sulfate 90 mcg/actuation (Ventolin HFA) 2 puffs inhalation QID PRN 30 days aspirin 81 mg PO DAILY azithromycin 250 mg PO MOWEFR vthtunaoqq-xxzguguo-vmaswdvjda 160-9-4.8 mcg/actuation (Breztri Aerosphere) 2 inhalations inhalation BID buprenorphine-naloxone 8-2 mg 1 film sublingual BID gabapentin 400 mg PO BID@0800,1400 gabapentin 1,200 mg PO BEDTIME lactulose 20 grams (30 mL) PO DAILY lancets (FreeStyle Lancets) As directed levalbuterol HCl 1.25 mg (3 mL) inhalation BID 30 days multivitamin 1 tab PO DAILY omeprazole 40 mg PO DAILY PFSH Medical History Obesity (BMI 30-39.9) COPD (chronic obstructive pulmonary disease) Smoking history Diarrhea Intussusception Hx of trauma LORENZO (obstructive sleep apnea) Hx of substance abuse History of alcohol abuse Hx of hepatitis C Incisional pain GERD (gastroesophageal reflux disease) Surgical History Hx of foot surgery Hx of repair of right rotator cuff History of axillary surgery Hx of knee surgery History of excision of lesion History of esophagogastroduodenoscopy (EGD) Hx of colonoscopy History of Maddy-en-Y gastric bypass Family History Father Cancer Diabetes Mother Diabetes Cancer Social History Household Members: Significant Other Housing: House Do you presently have visiting nurse or other home services: No Alcohol intake: never Patient Tobacco Use Status: Former Tobacco user Tobacco use type: Cigar Cigarettes Per Day: 10 Second Hand Smoke Exposure: No service: No Current occupational status: unemployed Current occupation: right handed Physical Exam Vital Signs: BMI result Body Mass Index 36.1 Const Other: Well-nourished well-developed very friendly male awake alert and oriented x3 in no acute distress Extrem Other: Bilateral lower extremity examination shows good capillary refill, no skin lesions noted, normal sensation light touch Left knee examination shows a minimal effusion, palpable crepitus with range of motion, pain with range of motion, no instability Results Reviewed Results Reviewed: X-rays of the patient's left knee show moderate diffuse joint space narrowing, subchondral sclerosis, no acute bony abnormalities Assessment & Plan Assessment & Plan (1) Left knee pain: Code(s): M25.562 - Pain in left knee (2) Osteoarthritis of left knee: Code(s): M17.12 - Unilateral primary osteoarthritis, left knee Category: Medical Plan Mr. Pemberton presents with progressively worsening left knee pain due to osteoarthritis. I had a lengthy discussion with the patient regarding the treatment options. He wishes to hold off on surgery if at all possible. I agree with this plan. I will see if the patient's insurance company will cover a viscosupplementation injection, such as Durolane, for his left knee. I will see him back once the injection is approved. Feel free to call me at any time should questions regarding his orthopedic management arise. Thank you very much for asking me to see this very friendly gentleman. I spent 20 minutes in reviewing the patient's records and imaging studies, seeing the patient and documenting in the medical record. Coding Level of Care Code New Pt Level 3 (53791) Complex EM visit Add On G2211 Diagnoses Left knee pain M25.562 Osteoarthritis of left knee M17.12
[2025-08-26 13:57] VITALS: BMI 36.1
--- OUTSIDE RECORDS SUMMARY | 2025-08-26 18:23 | XMS_ITS | Clinical Summary ---
Author Organization [address] [place] [address] [place] [phone] Phone Care Team Providers Care Capacity Planner Name Role Phone Name, Brandan HEATH Primary Care Provider [phone] Allergies Active Allergy Reactions Criticality Noted Date Comments Adhesive 10/22/2014 Other Reaction(s): Rash/Dermatitis Ibuprofen 04/27/2007 jdae banks Medications omeprazole (PriLOSEC) [address] [...] Venous insufficiency 10/20/2014 Asthma 05/15/2014 Morbid obesity ([facility] V24, [facility] V28) 2013 Chronic cholecystitis 06/25/2012 Overview (09/25/2024): S/p cholecystectomy CTS (carpal tunnel syndrome) 09/01/2011 Depression 09/01/2011 Gallstone 08/12/2010 Insomnia 08/12/2010 Cocaine abuse, episodic use ([facility] V24, [facility] V28) 03/16/2009 Alcoholism ([facility] V24, [facility] V28) 07/25/2008 Bipolar affective disorder ([facility] V24, [facility] V28) 07/25/2008 Jaw pain 07/25/2008 Overview (09/25/2024): Historical jaw fracture Acute gastric ulcer 04/27/2007 Overview (09/25/2024): WITHOUT MENTION OF HEMORRHAGE OR PERFORATION Related to gastric bypass IMO update Chronic hepatitis C virus in fection ([facility] V24, [facility] V28) 04/27/2007 Overview (09/25/2024): Chronic hepatitis C without mention of hepatic coma Genotype 1B (2003) and pos viral load (2013). Lumbago 04/27/2007 Urinary frequency 04/27/2007 Peripheral neuropathy 04/27/2007 Immunizations Immunization Administration Dates Next Due Hepatitis A Adult (Havrix; V aqta) 19yo and older 04/19/2011,10/15/2010 Hepatitis B (Aehigry-I-Tnauy , Recombivax HB-Adult) 19yo and older 04/19/2011,11/16/2010,10/15/2010 [...] Health Maintenance Due Date Last Done Comments Colorectal Cancer Screening: Colonoscopy 1961 RSV Immunization Adult Patients (1 - Risk 50-74 years 1-dose series) 2011 Pneumococcal Vaccine: 50+ Years (2 of 2 - PCV) 08/12/2011 08/12/2010 Zoster Vaccines (2 of 2) 08/01/2019 06/06/2019 Medicare Annual Wellness Visit 10/15/2022 Social Influencers [...] Health Maintenance Results * HIV Screening (08/13/2010) HIV Screening Abstracted [facility] Provider HEALTH MAINTENANCE Final Result * (ABNORMAL) Lipid panel (08/13/2010) Pathologist [facility] LDL/HDL Ratio 6(A) 0 - 4 Triglycerides 156(A) 0 - 150 mg/dL Cholesterol 216(A) 0 - 200 mg/dL HDL 35(A) >=40 mg/dL LDL Cholesterol 150(A) 0 - 100 mg/dL Blood Venous blood specimen / Unknown Result [facility] Provider LAB BLOOD ORDERABLES Zeynep l Result * Hepatitis C Screening (01/01/2004) Pathologist Replaced by [facility] Hepatitis C Screening Abstracted [facility] Provider HEALTH MAINTENANCE Final Result from Last 3 Months or Most Recently Relevant to Health Maintenance Insurance [id number] [place] [id number] MEDICAID [facility] MEDICARE ADVANTAGE on file Advance Directives Documents on File Type Date Recorded Patient Dispatch Clerk Expl anation Health Care Decision (hx) 04/12/2022 AD LAMB DIRECTIVE Health Care Decision (hx) 04/12/2022 AD LAMB DIRECTIVE Care Teams Capacity Planner Relationship Specialty Start Date End Date Name, MD Brandan [address] [place], [place] PCP - General 04/20/07
== END 2025-08-26 14:23 | disposition home or self-care (01) ==
LOC: HO.HOS 13:49
PROVIDERS: PCP Internal Medicine Geriatric Medicine; Visit Provider Orthopaedic Surgery
DX: M25.562 Pain in left knee (principal); M17.12 Unilateral primary osteoarthritis, left knee
CPT/HCPCS: 99203; G2211

== ENCOUNTER → 2025-08-26 13:48 | Outpatient (BNVA) | payer MEDICARE, MEDICAID, SELFPAY | PROVIDERS: PCP Internal Medicine Geriatric Medicine; Visit Provider Orthopaedic Surgery | DX: M25.562 Pain in left knee (principal); M17.12 Unilateral primary osteoarthritis, left knee | CPT/HCPCS: 99202 ==

== ENCOUNTER 2025-09-14 11:32 | Emergency (ER) | payer MEDICARE, MEDICAID, SELFPAY ==
--- OUTSIDE RECORDS SUMMARY | 2024-11-14 10:00 | XMS_ITS | Continuity of Care Document ---
Author Organization [facility] Address [address] [place] [address] Phone Care Team Providers Care Traffic Technician Name Role Phone Devon HEATH, ANGLE, ELAINE, Aldair Unavailable U navailable Allergies, Adverse Reactions, Alerts Substance Reaction Status Criticality ibuprofen Active No Information adhesive Active No Information Medications Medication Instructions Dosage Effective Dates (start - stop) Status Comments Suboxone 12 mg-3 mg sublingual film - Active omeprazole 20 mg capsule,delayed release - Active aspirin 81 mg tablet,delayed release - Active gabapentin 100 mg capsule - Acti ve bupropion HCl 75 mg tablet - Active Procedures Procedure Date Office/Outpt E&M Established 15 Mins- CT & [place] Duplex Scan-extrem Veins; Uni/ CT & [place] J Office/Outpt E&M Established 15 Mins- CT & [place] Duplex Scan-extrem Veins; Comp- CT & [place] Duplex Scan-extrem Veins; Uni/ CT & [place] J Inj Scleros Solut; Mx Veins 1- CT & [place] M Ultrason Guidan Needle Bx-rad- CT & [place] M Office/Outpt E&M Established 15 Mins- CT & [place] Duplex Scan-extrem Veins; Comp- CT & [place] Duplex Scan-extrem Veins; Uni/ CT & [place] A Inj Scleros Solut; Mx Veins 1- CT & MA M Ultrason Guidan Needle Bx-rad- CT & MA M Duplex Scan-extrem Veins; Uni/ CT & [place] M Varithena, Single Truncal Vein Endovenous Rf, 1st Vein Office/Outpt E&M Established 15 Mins Dec Duplex Scan-extrem Veins; / Duplex Scan-extrem Veins; Inj Scleros Solut; Mx Veins 1 4 Ultrason Guidan Needle Bx-rad 4 Duplex Scan-extrem Veins; / Endovenous Rf, 1st Vein Inj Scleros Solut; Mx Veins 1 4 Ultrason Guidan Needle Bx-rad 4 Offic/outpt E&m Estab 5 Min Trial - Tele medicine Duplex Scan-extrem Veins; / Office/Oupt E&M New Pt 30 Mins Advance Directives Directive Yes / No Effective Date File Name No Information Encounters Encounter Description Practice Location Reason(s) For Visit Diagnoses Date Provider Providers Copied on Encounter Office/Outpt E&M Established 15 Mins- [place] & [place] [facility], [address] [place] [address] Dr Godinez [address], [place], [id number], [place] tel:[phone] [facility] [place] Venous insufficienc y (chronic) (peripheral) Sciatica, unspecified side 5 Devon HEATH, RVT, RPVI Aldair. [address], [place], [place], [id number], [place]. tel:[phone] Referring Provider: Brandan Harrison MD, [address] [place] [address], [address]. tel:[phone] [facility], [address] [place] [address] Herbert [address], [place], [id number], [place] tel:[phone] [facility] [place] Pain in left leg 5 Devon HEATH RVT, RPVI Robert. [address] [place] [address], Val[place] fatima [place], [id number], [place]. tel:[phone] Referring Provider: Brandan Harrison MD, [address] [place] [address], [address]. [phone] Office/Outpt E&M Established 15 Mins- [place] & [place] [facility], [address] [place] [address] Dr Godinez [address] [place], [id number], [place] tel:[phone] [facility] Venous insufficienc y (chronic) (peripheral) 4 Dveon HEATH RVT, RPVI Robert. [address] [place] [address], Valarie fatima [place], [id number], [place]. tel:[phone] Referring Provider: Brandan Harrison MD, [address] [place] [address], [address]. tel:[phone] [place] [facility], [address] [place] [address] Dr Godinez [address] [place], [id number], [place] tel:[phone] [facility] Chronic venous hypertension (idiopathic) with other complication s of bilateral lower extremity 4 Devon HEATH RVT, ELAINE Quinteros. [address] [place] [address], [place] fat[place], [id number], [place]. tel:[phone] Referring Provider: Brandan Harrison MD, [address] [place] [address], [address]. tel:[phone] [place] [facility], [address] [place] [address] Dr Godinez 1000Suite [place], [id number], [place] tel:[phone] [facility] Encounter for follow-up examination after completed treatment for conditions other than malignant nePain in right leg 4 Devon HEATH RVT, RPVI Robert. [address] [place] [address], Val[place]ima [place], [id number], [place]. tel:[phone] Referring Provider: Brandan Harrison MD, [address] [place] [address], [address]. tel:[phone] [facility], [address] [place] [address] Dr Godinez [address]Suite [place], [id number], [place] tel:[phone] [facility] [place] Varicose veins of right lower extremity with other complication s 4 Toñito Man. [address] [place] [address], [place], [place], [id number], [place]. tel:[phone] Referring Provider: Brandan Harrison MD, [address] [place] [address], [address]. tel:[phone] Office/Outpt E&M Established 15 Mins- CT & [place] [facility], [address] [place] [address] Dr Godinez [address] [address], [id number], [place] tel:[phone] [facility] [place] Chronic venous hypertension (idiopathic) with other complication s of bilateral lower extremityLym phedema, not elsewhere classifiedRe stless legs syndromeVeno us insufficienc y (chronic) (peripheral) 4 Devon HEATH RVT, ELAINE Quinteros. [address] [place] [address], [place], [place], [id number], [place]. tel:[phone] Referring Provider: Brandan Harrison MD, [address] [place] [address], [address]. tel:[phone] [facility], [address] [place] [address] Dr Godinez [address], [id number], [place] tel:[phone] [facility] [place] Chronic venous hypertension (idiopathic) with other complication s of bilateral lower extremity 4 Devon HEATH RVT, ELAINE Quinteros. [address] [place] [address], [place], [place], [id number], [place]. tel:[phone] Referring Provider: Brandan Harrison MD, [address] [place] [address], [address]. tel:[phone] [facility], [address] [place] [address] Dr Godinez 1000SuSelin muniz [place], [id number], [place] tel:[phone] [facility] - [facility] Encounter for follow-up examination after completed treatment for conditions other than malignant neVaricose veins of right lower extremity with pain Apr-0 - 4 Devon HEATH RVT, ELAINE Quinteros. [address] [place] [address], [place], [place], [id number], [place]. tel:[phone] Referring Provider: Brandan Harrison MD, [address] [place] [address], [address]. tel:[phone] [place] [facility], [address] [place] [address] Dr Godinez 1000SuSelin muniz [place], [id number], [place] tel:[phone] [facility] Varicose veins of right lower extremity with other complication s Jan-2 4 Toñito Man. [address] [place] [address], [place], [place], [id number], [place]. tel:[phone] Referring Provider: Brandan Harrison MD, [address] [place] [address], [address]. tel:[phone] [place] [facility], [address] [place] [address] Dr Godinez 1000SuSelin muniz [place], [id number], [place] tel:[phone] [facility] - [facility] Encounter for follow-up examination after completed treatment for conditions other than malignant neVaricose veins of right lower extremity with pain Mar-2 4 Devon HEATH RVT, ELAINE Quinteros. [address] [place] [address], [facility] [place], [id number], [place]. tel:[phone] Referring Provider: Brandan Harrison MD, [address] [place] [address], [address]. [phone] [facility], [address] [place] [address] Dr Godinez 1000SuSelin muniz [place], [id number], [place] tel:[phone] [facility] [place] Varicose veins of right lower extremity with other complication s 4 Devon HEATH RVT, ELAINE Quinteros. [address] [place] [address], [place], [place], [id number], [place]. tel:[phone] Referring Provider: Brandan Harrison MD, [address] [place] [address], [address]. tel:[phone] [facility], [address] [place] [address] Dr Godinez 1000Suite [place], [id number], [place] tel:[phone] [facility] [place] Varicose veins of right lower extremity with other complication s 4 Devon HEATH RVT, ELAINE Quinteros. [address] [place] [address], [place], [place], [id number], [place]. tel:[phone] Referring Provider: Brandan Harrison MD, [address] [place] [address], [address]. [phone] Office/Outpt E&M Established 15 Mins [facility], [address] [place] [address] Dr Godinez 1000Suite [place], [id number], [place] tel:[phone] [facility] [place] Chronic venous hypertension (idiopathic) without complication s of right lower extremity 4 Devon HEATH RVT, ELAINE Quinteros. [address] [place] [address], [place], [place], [id number], [place]. tel:[phone] Referring Provider: Brandan Harrison MD, [address] [place] [address], [address]. [phone] [facility], [address] [place] [address] Dr Godinez 1000SuSelin muniz [place], [id number], [place] tel:[phone] [facility] [place] Encounter for follow-up examination after completed treatment for conditions other than malignant nePain in right leg 4 Devon HEATH RVT, RPVI Robert. [address] [place] [address], [facility] [place], [id number], [place]. tel:[phone] Referring Provider: Brandan Harrison MD, [address] [place] [address], [address]. tel:[phone] [place] [facility], [address] [place] [address] Dr Godinez 1000Suite [place], [id number], [place] tel:[phone] [facility] - [facility] Encounter for follow-up examination after completed treatment for conditions other than malignant neVaricose veins of left lower extremity with pain 4 Devon HEATH RVT, RPVI Robert. [address] [place] [address], [facility] [place], [id number], [place]. tel:[phone] Referring Provider: Brandan Harrison MD, [address] [place] [address], [address]. [phone] [place] [facility], [address] [place] [address] Dr Godinez [address]Suite [place], [id number], [place] tel:[phone] [facility] - [facility] Varicose veins of left lower extremity with other complication s 0 4 Devon HEATH RVT, RPVI Robert. [address] [place] [address], [facility] [place], [id number], [place]. tel:[phone] Referring Provider: Brandan Harrison MD, [address] [place] [address], [address]. [phone] [facility], [address] [place] [address] Dr Godinez [address]Suite [place], [id number], [place] tel:[phone] [facility] [place] Encounter for follow-up examination after completed treatment for conditions other than malignant neVaricose veins of left lower extremity with pain b0 4 Devon HEATH RVT, RPVI Robert. [address] [place] [address], [facility] [place], [id number], [place]. tel:[phone] Referring Provider: Brandan Harrison MD, [address] [place] [address], [address]. tel:[phone] [place] [facility], [address] [place] [address] Dr Godinez 1000[place] 1000[place], [id number], [place] tel:[phone] [facility] Varicose veins of left lower extremity with other complication s 4 Devon HEATH, RVT, ELAINE Quinteros. [address] [place] [address], [facility] [place] [place], [id number], [place]. tel:[phone] Referring Provider: Brandan Harrison MD, [address] [place] [address], [address]. tel:[phone] [place] [facility], [address] [place] [address] Dr Godinez 1000[facility] 1000[place], [id number], [place] tel:[phone] [facility] No Information 4 Pacheco HEATH FACS RVT ELAINE Canseco. [address] [place] [address], [facility] [place], [address], [place]. tel:[phone] Referring Provider: Brandan Harrison MD, [address] [place] [address], [address]. [phone] Offic/outpt E&m Estab 5 Min Trial - Telemedicine [facility], [address] [place] [address] Dr Godinez [facility] 1000[place], [id number], [place] tel:[phone] [facility] Localized edemaCramp and spasmRestles s legs syndromeVeno us insufficienc y (chronic) (peripheral) Pruritus, unspecified 4 Inna Coleman. [address] [place] [address], [facility] [place] [place], [id number], [place]. tel:[phone] Referring Provider: Brandan Harrison MD, [address] [place] [address], [address]. tel:[phone] [facility], [address] [place] [address] Dr Godinez 1000[address] 1000[place], [id number], [place] tel:[phone] [facility] Varicose veins of left lower extremities with pain 3 [facility] ELAINE Canseco. [address] [place] [address], [place], [address], . tel:[phone] Referring Provider: Brandan Harrison MD, [address] [place] [address], [address]. tel:[phone] Office/Oupt E&M New Pt 30 Mins [facility], [address] [place] [address] Dr Godinez 1000[facility] 1000[place], [id number], [place] tel:[phone] [facility] Varicose veins of left lower extremities w oth complication Chepe in left lower legPain in left legLocalized edemaRestles s legs syndromePrur itus, unspecifiedC ramp and spasm 3 Pacheco [facility]ATH [facility] KRISTINA Canseco. [address] [place] [address], [place], [address], [place]. tel:[phone] Referring Provider: Brandan Harrison MD, [address] [place] [address], [address]. tel:[phone] Family History Family Member Type Diagnosis Age At Onset No Information Payers Payer name Insurance type Covered alliance party ID Authorazaleaa tikelley(s) [employer] [id number] Medical Assistance [facility] [id number] Social History Type Description Quantity Date Captured Comments Alcohol Use Details No Caffeine Use Details Unknown Tobacco Use Status Smoking Status Smoker, current stat us unknown Non-Smoking Tobacco Use Details : No Details Available : No Details Available Sex Male Chief Complaint And Reason For Visit No Information Reason For Referral Reason For Referral No Information Plan Of Treatment Date Type Action Status Goal Tobacco cessation counseling completed Goal Diet education completed Goal Tobacco cessation counseling completed Goal Tobacco cessation counseling completed Goal Diet education completed Goal Tobacco cessation counseling completed Goal Tobacco cessation counseling completed Goal Tobacco cessation counseling completed Goal Diet education completed Referral Ordered: Weight management: Referral to physician timeframe: 3 Months (related to Body mass index (BMI) 28.0-28.9, adult) ordered Referral Ordered: Weight management: Referral to physician timeframe: 3 Months (related to Body mass index (BMI) 28.0-28.9, adult) ordered Referral Ordered: Weight management: Referral to physician timeframe: 3 Months (related to Body mass index (BMI) 28.0-28.9, adult) ordered History Of Present Illness Encounter Date Complaint History Of Prese nt Illness No Information Functional Status Date Functional Assessmen t No Information Instructions Date Instruction Additional Infor pal Patient education booklet given Related to Venous insufficiency (chronic) (peripheral) Compression stocking usage as conservative measure Related to Venous insufficiency (chronic) (peripheral) Diet education Related to Body mass index (BMI) 28.0-28.9, adult Lifestyle education Related to B manny mass index (BMI) 28.0-28.9, adult Giving Encouragement to exercise Related to Body mass index (BMI) 28.0-28.9, adult Pre and post instruc tions reviewed and provided Related to Chronic venous hypertension (idiopathic) with other complications of bilateral lower extremity Patient education booklet given Related to Chronic venous hypertension (idiopathic) with other complications of bilateral lower extremity Lifestyle education Related to B manny mass index (BMI) 28.0-28.9, adult Giving Encouragement to exercise Related to Body mass index (BMI) 28.0-28.9, adult Diet education Related to Body mass index (BMI) 28.0-28.9, adult Patient education booklet given Related to Localized edema Pre and post instruc tions reviewed and provided Related to Localized edema Pre and post instruc tions reviewed and provided Related to Varicose veins of left lower extremities w oth complications Patient education booklet given Related to Varicose veins of left lower extremities w oth complications Lifestyle education Related to B manny mass index (BMI) 28.0-28.9, adult Giving Encouragement to exercise Related to Body mass index (BMI) 28.0-28.9, adult Diet education Related to Body mass index (BMI) 28.0-28.9, adult Assessments Type Assessment Date assessment Venous insufficiency (chronic) ( peripheral) assessment Sciatica, unspecified side Patient Care Teams Name Effective Dates (start - stop) Status Members No Information
--- NOTE | ~2025-09-14 | CT_ITS ---
CLINICAL HISTORY: fall, trauma CT head without contrast Comparison: 12/31/2024 Findings: No intracranial mass, midline shift, hydrocephalus, or acute hemorrhage. No CT evidence of acute ischemia. Visualized paranasal sinuses and mastoid air cells normal. Orbits unremarkable. No skull fracture Impression: 1. No acute intracranial abnormalities. This document has been electronically signed by: Tyrone Martinez MD on 09/14/2025 14:57:34
--- NOTE | ~2025-09-14 | CT_ITS ---
CLINICAL HISTORY: fall, trauma CT cervical spine without contrast Comparison: 12/31/2024 Findings: Normal limited view of the intracranial contents. Soft tissues of the neck are normal. Lung apices are normal. Normal vertebral body alignment. No fractures or dislocations. Similar-appearing diffuse degenerative disc disease.. Impression: 1. No cervical vertebral fracture or traumatic malalignment. This document has been electronically signed by: Tyrone Martinez MD on 09/14/2025 14:56:24
--- NOTE | ~2025-09-14 | CT_ITS ---
CLINICAL HISTORY: fall, head strike, trauma alert Exam: Contrast-enhanced CT chest with multiplanar reformats. Comparison: None. Findings: Lungs are free of focal consolidation. No pulmonary nodules or parenchymal lesions. No pneumothorax. Minimal paraseptal and centrilobular emphysematous changes are present. Airways appear patent. No pneumothorax. No mediastinal or hilar masses or adenopathy. No pleural or pericardial effusions. Images below the diaphragms reveal no acute abnormalities. Osseous structures reveal no fractures or traumatic malalignment. Diffuse thoracic degenerative changes are present. Impression: 1. No acute traumatic sequela to the chest. This document has been electronically signed by: Tyrone Martinez MD on 09/14/2025 14:55:35
--- NOTE | ~2025-09-14 | CT_ITS ---
CLINICAL HISTORY: fall, abdominal pain, trauma Exam: Contrast-enhanced CT abdomen and pelvis with multiplanar reformats. Comparison: 12/31/2024. Findings: CT abdomen: Lung bases are grossly clear. Liver is intact and free of gross focal lesions and ductal dilatation. Gallbladder is absent. Spleen is intact and appears unremarkable. Pancreas and adrenal glands appear unremarkable. Kidneys appear unremarkable. No free intraperitoneal fluid or retroperitoneal masses or adenopathy. Abdominal aorta is normal caliber with mild calcific athero sclerosis. Bowel loops reveal no abnormal wall thickening or distention. CT pelvis: Prostate gland and seminal vesicles are stable. Urinary bladder is free of gross filling defects. No pelvic masses, fluid or adenopathy. Osseous structures reveal no fractures or destructive osseous lesions. Lower thoracic and lumbar degenerative disc changes are present. Impression: 1. No acute traumatic sequela to the abdomen or pelvis. This document has been electronically signed by: Tyrone Martinez MD on 09/14/2025 14:52:46
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
[2025-09-14 11:42] VITALS: BP 181/88; PULSE 72; PULSE 84; RESP 16; TEMP 36.7; O2SAT 96; O2SAT 98; BMI 38.1
[2025-09-14 11:53] VITALS: PULSE 72; RESP 16; TEMP 36.7; O2SAT 96
--- OUTSIDE RECORDS SUMMARY | 2025-09-14 12:04 | XMS_ITS | Encounter Summary ---
Author Organization [employer] Address [address] [place] [address] [address] [place] [address] Care Team Providers Care Dry Pan Operator Name Role Phone Name, Brandan HEATH Primary Care Provider [phone] Encounter Details Date Type Department Care Team (Late st Contact Info) Description 11/09/2022 Telephone [facility] [address] [place], [place] [id number] Name, MD Brandan [address] [place] [address] Social History Tobacco Use Types Packs/Day Years [...] on filedocumented in this encounter Care Teams Dry Pan Operator Relationship Specialty Start Date End Date Name, MD Brandan [address] [place] [id number] PCP - General Family Medicine 12/15/15 documented as of this encounter
--- OUTSIDE RECORDS SUMMARY | 2025-09-14 12:04 | XMS_ITS | Patient Health Record ---
Author Organization [facility] Address [address] [place] [address] Care Team Providers Care Digital Forensics Investigator Name Role Phone Name Brandan HEATH Primary Care Provider Aldair Reyes [phone] Allergies Allergen (clinical drug ingredient) Drug/Non Drug [...] minutes before morning meal Orally Once a day; Duration: 30 day(s) Active One A Day Mens [...] 11yrs, respectfully Smokes cigars and medical [facility]; hx of alcohol and substance abuse with sobriety for 9 yrs and 11yrs, respectively Problems Problem Type SNOMED Code ICD Code Onset Dates Problem Status W/U Status Risk Notes Problem Colon cancer screening (219188082) Colon cancer screening (Z12.11) Active confirmed Problem Diverticular disease of colon (915944790) Diverticulosis of large intestine without perforation or abscess without bleeding (K57.30) Active confirmed Problem Early satiety (179034950) Early satiety (R68.81) Active confirmed Problem Gastroesophageal reflux disease without esophagitis (877048404) Gastroesophageal reflux disease without esophagitis (K21.9) Active confirmed Problem History of hepatitis C (35873080306673) History of hepatitis C (Z86.19) Active confirmed Problem Generalized abdominal pain (231299803) Abdominal pain, generalized (R10.84) Active confirmed Plan [...] Date Coverage End Date [employer] [address] [address] [place] [address] [id number] MARIAA RICHEY Self - patient is the insured MEDICAID OF [facility] [address] [place] [address] [id number] MARIAA RICHEY Self - patient is the insured Medical (General) History Medical History History ICD Code Denies [place],DM,CVA,Lung disease,renal dise ase Negative screening colonosco py at [facility] in 02/[address] Doran at [facility] Chronic Hep C-Genotype 1B--s /p treatment with Harvoni at [facility]--he reports success and had normal LFT's in [...] with corrective surgery by Dr. Vaz at [facility] in [place] in 2004--he had an UGI in 2007 showing a patent anastomosis Facial reconstruction surgery after trau ma Throat lesions removed Knee surgery on the right for a benign tumor Left axilla surgery for a fatty tumor Rotator cuff on right 2020 Right foot surgery for a Hammer toe 07/26 23
--- OUTSIDE RECORDS SUMMARY | 2025-09-14 12:04 | XMS_ITS | Encounter Summary ---
Author Organization [employer] Address [address] [facility] [address] [place] [address] Care Team Providers Care Guest Services Attendant Name Role Phone Name, Brandan HEATH Primary Care Provider [phone] Encounter Details Date Type Department Care Team (Late st Contact Info) Description 05/26/2023 Orders Only [facility] MEDICINE [address] [place] [address] Rowan Pepe FNP Social History Tobacco Use [...] 0 AM EDT 01/29/2024 10:58 AM EDT [facility]S - 01/31/2024 8:59 AM EDT ----- ------- Name: Raudel Pemberton Age/Sex: 63/M : 1960 Unit#: [id number] Attend Dr: Aldair Waters Re01/29/24 Status: [facility] Location: [facility] Disch: ----- ------- SPEC : [id number] RECD: 01/29/24-1058 STATUS: TANIKA MILIAN NUM: [id number] ABDI: 01/29/24-[address] [facility] DR: Aldair Waters ENTERED: 01/29/24-1106 SP TYPE: [...] A. CEDS Copies To: Brandan Harrison MD [address] [place] [phone] Waters,[address] [place] [address] ----- ------- Signed (signature on file) Andrew Henry MD 01/31/24 0859 ----- ------- END OF REPORT us Generic External Data Provider LAB BLOOD ORDERAB LES Final Result [facility] [address] [place] [phone] documented in this encounter Visit Diagnoses Not on filedocumented in this encounter Care Teams Guest Services Attendant Relationship Specialty Start Date End Date Name, MD Brandan [address] [place] [address] PCP - General Family Medicine 12/15/15 documented as of this encounter
--- OUTSIDE RECORDS SUMMARY | 2025-09-14 12:04 | XMS_ITS | Clinical Summary ---
Author Organization [employer] Address [address] [facility] 7t [place] [address] Care Team Providers Care Toll Operator Name Role Phone Name, Brandan HEATH Primary Care Provider [phone] Allergies Active Allergy Reactions Criticality Noted Date Comments Ibuprofen 01/25/2016 Other reaction(s): hives & urticaria Wound Dressing Adhesive 07/07/2017 Other reaction(s): tape eats through my skin Medications * This document contains information received from the source organization and may not represent a complete record from that organization. Lancets (onetouch ultrasoft) lancetsIndicatio ns:Hypoglycemia 1 each by Other route 3 times daily. Use as instructed 100 each 11 3 Active glucose blood test stripIndications :Hypoglycemia 1 each by Other route 3 times daily. Use as instructed 100 each 11 3 Active Blood Glucose Monitoring Suppl (Accu-Chek Ayla Plus) w/Device kitIndications:H ypoglycemia Use as directed 1 kit 3 Active fluticasone (Flonase) 50 MCG/ACT nasal sprayIndications :Seasonal allergies Administer 2 sprays into each nostril Once per day. Shake gently. Before first use, prime pump. After use, clean tip and replace cap. 16 g 2 4 Active cetirizine (ZyrTEC) 10 MG tabletIndication s:Seasonal allergies TAKE 1 TABLET BY MOUTH EVERY DAY 90 tablet 1 4 Active buPROPion SR (Wellbutrin SR) 150 MG 12 hr tabletIndication s:Depression, unspecified depression type TAKE 1 TABLET BY MOUTH TWICE DAILY 60 tablet 2 4 Active Aspirin Low Dose 81 MG EC tablet Take 81 mg by mouth Once per day. 4 Active atorvastatin (Lipitor) 40 MG tablet Take 1 tablet by mouth Once per day. 4 Active metoprolol succinate XL (Toprol-XL) 25 MG 24 hr tablet Take 1 tablet by mouth Once per day. 4 Active nicotine (Nicoderm, Step 1) 21 MG/24HR patch Place 1 patch on the skin 1 (one) time each day at the same time. 4 Active Buprenorphine HCl-Naloxone HCl (Suboxone) 8-[address] 2 Film under the tongue Once per day. Active albuterol 108 (90 Base) MCG/ACT inhaler Inhale 2 puffs every 6 (six) hours if needed for wheezing. 18 g 11 5 05/15/20 26 Active gabapentin (Neurontin) 800 MG tablet TAKE 1 TABLET BY MOUTH EVERY MORNING, 1 TABLET AT LUNCH AND 1 1/2 TABLETS AT BEDTIME 110 tablet 4 5 Active Symbicort 160-4.5 MCG/ACT inhaler Inhale 2 puffs 2 times daily. 1 each 2 5 Active Spiriva HandiHaler 18 MCG inhalation capsuleIndicatio ns:Chronic obstructive pulmonary disease (COPD) suggested by initial evaluation Place 1 capsule (18 mcg) into inhaler and inhale Once per day. 30 capsule 3 5 Active omeprazole (PriLOSEC) [address] capsuleIndicatio ns:Depression, unspecified depression type TAKE 1 CAPSULE BY MOUTH EVERY DAY BEFORE A MEAL 90 capsule 5 Active Active Problems Problem Noted Date Diagnosed [...] rhinitis 08/22/2017 Anxiety 07/07/2017 Chronic hepatitis C (CMS/HCC) 01/25/2016 Overview (08/20/2024): Patient was treated at [facility] by ID. Records are in [employer]. Viral load negative for many years. He was treated back in 2017. Component Ref Range & Units 1 yr ago HCV RNA, QN Real Time PCR NOT DETECTED IU/mL <15 NOT DETECTED HCV RNA QN Real Time PCR NOT DETECTED Log IU/mL <1.18 NOT DETECTED Chronic alcoholism in remission (CMS/HCC) 2015 Midline low back pain without sciatica 6 [...] Encounters Date Type Department Care Team Description 07/30/2025 Refill [facility] [address] [place] [address] Lula Garcia NP Depression, unspecified depression type 07/29/2025 1:45 PM EDT Office Visit [facility] [address] [place] [address] Name, MD Brandan Chronic pain of left knee (Primary Dx); Chronic obstructive pulmonary disease (COPD) suggested by initial evaluation (CMS/[facility]); Situational depression; Homeless single person 07/29/2025 Travel 07/28/2025 Telephone [facility] [address] [place] [address] Carlos Wolf MA chart prep from Last 3 Months Immunizations Immunization Administration [...] 01/04/2022 Influenza Vaccine (#1) 2025 9, 08/01/2019, 09/12/2018, Additional history exists Depression Monitoring 11/15/2025 05/15/2025, [...] PM EDT Narrative 07/29/2025 2:53 PM EDT [address] [address] XRay Report Signed Patient: Raudel Pemberton MR#: [id number] : 1960 Acct:[id number] Age/Sex: 65 / M ADM Date: 07/29/25 Loc: HO.HHCX Attending Dr: Brandan Harrison MD Ordering Physician: Brandan Harrison MD Date of Service: 07/29/25 Procedure(s): XR knee LT 4V Accession Number(s): [id number] cc: Brandan Harrison MD Reason for Exam: [...] 07/29/25 1450 DD/ 1431 TD/TT: 07/29/25 143 Assembling Motor Builder: Procedure Note Donotuseinterpreter, Image - 07/29/[address] [address] XRay Report Signed Patient: Raudel Pemberton LMR#: [id number] : 1960cct:[id number] Age/Sex: 65 / MADM Date: 07/29/25 Loc: HO.HHCX Attending Dr: Brandan Harrison MD Ordering Physician: Brandan Harrison MD Date of Service: 07/29/25 Procedure(s): XR knee LT 4V Accession Number(s): [id number] cc: Brandan Harrison MD Reason for Exam: [...] 07/29/25 1450 DD/ 1431 TD/TT: 07/29/25 143 Assembling Motor Builder: Brandan Harrison MD IMG XR PROCEDURES Final Result * (ABNORMAL) Lipid Panel, Standard (03/05/2024 9:18 AM EDT) Triglycerides 52 <150 mg/dL [facility] Comment:Desirable Triglyceri de: less than 150 mg/dLBorderline High Triglyceride 150-199 mg/dLHigh Triglyceride: 200-499 mg/dLVery High Triglyceride: greater than or equal to 5OO mg/dL Cholesterol 173 <200 mg/dL [facility] Comment:Desirable Cholestero l: less than 200 mg/dLBorderline High Cholesterol: 200-239 mg/dLHigh Cholesterol: greater than 239 mg/dL LDL Cholesterol Calculated 113(H) <100 mg/dL [facility] Comment:Desirable LDL: less than 100 mg/dLNear Optimal/Above Optimal LDL: 110- 129 mg/dLBorderline High LDL: 130-159 mg/dLHigh LDL: 160-189 mg/dLVery High LDL: greater than or equal to 190 mg/dL HDL Cholesterol 50 >40 mg/dL [facility] Comment:Desirable HDL: great er than 40 mg/dL Note: This HDL assay may give artificially low results in patients with liver disease. Blood Venous blood specimen / Unknown 03/05/2024 9:18 AM EDT 03/05/2024 9:18 AM EDT us Brandan Harrison MD LAB BLOOD ORDERABLES Final Resul t [facility] [address] [place], [place] [phone] * (ABNORMAL) Hm Colonoscopy (01/29/2024) Colonoscopy Abnormal(A ) Normal us Brandan Harrison MD HEALTH MAINTENANCE Edited Result - Final * HIV-1/2 Antigen and Antibodies, Fourth Generation, with Reflexes (05/05/2023 9:58 AM EDT) HIV Antigen/Antibody, 4th Generation NON-REAC TIVE NON-REAC TIVE [employer] [facility] Comment: HIV-1 antigen and HIV-1/HIV-2 antibodies [...] purpose. For additional information please refer to http://education.eCaring/faq/LXP257 (This link is being provided for informational/ educational purposes only.) The performance of this assay has not been clinically validated in patients less than 2 years old. Blood Venous blood specimen / Unknown 05/05/2023 9:58 AM EDT 05/05/2023 9:58 AM EDT Narrative [facility] - 05/10/2023 9:05 AM EDT FASTING:NO FASTING: NO Leena Dodd MD LAB BLOOD ORDERABLES Fin al Result [facility] [address], [place] [address] [employer] [facility] [address] [place] [address] from Last 3 Months or Most Recently Relevant to Health Maintenance [place] [address] [employer] PPO Care Teams Toll Operator Relationship Specialty Start Date End Date Name, MD Brandan [address] [place] [phone] PCP - General Family Medicine 12/15/15
--- OUTSIDE RECORDS SUMMARY | 2025-09-14 12:04 | XMS_ITS | Clinical Summary ---
Author Organization [address] [place] [address] [place] [phone] Phone Care Team Providers Care Hospital Aide Name Role Phone Name, Brandan HEATH Primary Care Provider [phone] Allergies Active Allergy Reactions Criticality Noted Date [...] Venous insufficiency 10/20/2014 Asthma 05/15/2014 Morbid obesity ([facility] V24, [facility] V28) 2013 Chronic cholecystitis 06/25/2012 Overview (09/25/2024): S/p cholecystectomy CTS (carpal tunnel syndrome) 09/01/2011 Depression 09/01/2011 Gallstone 08/12/2010 Insomnia 08/12/2010 Cocaine abuse, episodic use ([facility] V24, [facility] V28) 03/16/2009 Alcoholism ([facility] V24, [facility] V28) 07/25/2008 Bipolar affective disorder ([facility] V24, [facility] V28) 07/25/2008 Jaw pain 07/25/2008 Overview (09/25/2024): Historical jaw fracture Acute gastric ulcer 04/27/2007 Overview (09/25/2024): WITHOUT MENTION OF HEMORRHAGE OR PERFORATION Related to gastric bypass IMO update Chronic hepatitis C virus in fection ([facility] V24, [facility] V28) 04/27/2007 Overview (09/25/2024): Chronic hepatitis C without mention of hepatic coma Genotype 1B (2003) and pos viral load (2013). Lumbago 04/27/2007 Urinary frequency 04/27/2007 Peripheral neuropathy 04/27/2007 Immunizations Immunization Administration Dates Next Due Hepatitis A Adult (Havrix; V aqta) 19yo and older 04/19/2011,10/15/2010 Hepatitis B (Gqwdjyz-A-Ftqpe , Recombivax HB-Adult) 19yo and older 04/19/2011,11/16/2010,10/15/2010 Influenza trivalent, 0.5mL, preservative free (Fluarix; FluLaval; Fluzone) ages 6mo and older (Afluria) 3 years and older 07/15/2015,09/01/2011 Pneumococcal polysaccharide 23 valent (Pneumovax 23) 2yo and older 08/12/2010 Surgical History Surgery Date Site/Laterality Comments STOMACH SURGERY PROCEDURE: [place] UNLISTED PROCEDURE STOMACH; COMMENT: bariatric surgery and reversal COLONOSCOPY 2012 PROCEDURE: NV COLONOSCOPY FLX DX W/COLLJ SPEC WHEN PFRMD; COMMENT: normal CHOLECYSTECTOMY PROCEDURE: HISTORICAL CHOLECYSTECTOMY SHOULDER ARTHROSCOPY 08/31/2021 Right PROCEDURE: NV SURGICAL ARTHROSCOPY SHOULDER W/LSS&RESCJ ADS; COMMENT: Right [...] * HIV Screening (08/13/2010) HIV Screening Abstracted [facility] Provider HEALTH MAINTENANCE Final Result * (ABNORMAL) Lipid panel (08/13/2010) Pathologist [facility] LDL/HDL Ratio 6(A) 0 - 4 Triglycerides 156(A) 0 - 150 mg/dL Cholesterol 216(A) 0 - 200 mg/dL HDL 35(A) >=40 mg/dL LDL Cholesterol 150(A) 0 - 100 mg/dL Blood Venous blood specimen / Unknown Result [facility] Provider LAB BLOOD ORDERABLES Zeynep l Result * Hepatitis C Screening (01/01/2004) Pathologist [facility] Hepatitis C Screening Abstracted [facility] Provider HEALTH MAINTENANCE Final Result from Last 3 Months or Most Recently Relevant to Health Maintenance Insurance [id number] [place] [address] MEDICAID [facility] MEDICARE ADVANTAGE on file Advance Directives Documents on File Type Date Recorded 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
--- OUTSIDE RECORDS SUMMARY | 2025-09-14 12:04 | XMS_ITS | Encounter Summary ---
Author Organization [employer] Address [address] [facility] [address] [place] [address] Care Team Providers Care Crisis Counselor Name Role Phone Name, Brandan HEATH Primary Care Provider [phone] Encounter Details Date Type Department Care Team ([facility] st Contact Info) Description 10/28/2022 Orders Only [facility] MED & PEDS [address] [place] [address] Krystina Michelle LPN Social History Tobacco Use [...] on filedocumented in this encounter Care Teams Crisis Counselor Relationship Specialty Start Date End Date Name, MD Brandan [address] [place] [address] PCP - General Family Medicine 12/15/15 documented as of this encounter
--- OUTSIDE RECORDS SUMMARY | 2025-09-14 12:04 | XMS_ITS | Encounter Summary ---
Author Organization [employer] Address [address] [place] [address] [address] [address] Care Team Providers Care Transcript Evaluator Name Role Phone Name, Brandan HEATH Primary Care Provider [phone] Reason for Visit * Reason Onset Date Comments status 10/24/2022 Encounter Details Date Type Department Care Team ([facility] st Contact Info) Description 10/24/2022 Telephone [facility] MEDICINE [address] [place], [place] [phone] Name, MD Brandan [address] [place] [address] status Social History Tobacco Use Types Packs/Day [...] over to L&C Please contact pt at [phone] documented in this encounter Plan of Treatment Not on file documented as of this encounter Visit Diagnoses Not on filedocumented in this encounter Care Teams Transcript Evaluator Relationship Specialty Start Date End Date Name, MD Brandan [address] [place] [address] PCP - General Family Medicine 12/15/15 documented as of this encounter
[2025-09-14] MEDS: iohexoL 350 MG/ML 100 ML INFUS..BTL IV (12:19)
[2025-09-14 12:32] VITALS: BP 150/84; PULSE 62; RESP 13; TEMP 36.7; O2SAT 100
[2025-09-14 12:43] LABS: Hematocrit 39.3 % (42.0-52.0); Hemoglobin 12.8 g/dl (14.0-18.0); Imm Gran Abs Auto 0.02 X10*3/uL (0.00-0.03); Imm Gran Pct Auto 0.4 % (0.0-0.4); Lymphocytes Absolute Auto 0.9 X10*3/uL (1.2-4.9); MANUAL DIFF FLAG NO; Mean Corpuscular HGB Conc 32.6 g/dl (31.0-36.0); Mean Corpuscular Hemoglobin 29.0 pg (27.0-33.0); Mean Corpuscular Volume 88.9 fL (80.0-98.0); NRBC Abs Auto 0.000 X10*3/uL (0.0-0.012); NRBC Pct Auto 0.0 /100WBC (0.0-0.2); Platelet Count 174 X10*3/uL (160-400); Red Blood Count 4.42 X10*6/uL (4.60-5.80); White Blood Count 5.5 X10*3/uL (4.8-10.8)
[2025-09-14 12:57] LABS: Alanine Aminotransferase 23 U/L (0-40); Albumin Level 4.1 g/dL (3.5-5.0); Alkaline Phosphatase 86 U/L (39-117); Anion Gap 13 (12-20); Aspartate Amino Transferase 34 U/L (5-37); Blood Urea Nitrogen 12 mg/dL (9-16); Calcium 8.6 mg/dL (8.4-10.2); Carbon Dioxide 27 mmol/L (22-29); Chloride 102 mmol/L (96-108); Creatinine Clr Calc Pharmacy 167.5; Estimated Glomerular Filt Rate > 60; Potassium 3.8 mmol/L (3.3-5.1); Sodium 138 mmol/L (135-145); Total Protein 6.6 g/dL (6.5-8.0)
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
[2025-09-14 15:45] VITALS: BP 150/84; PULSE 62; RESP 13; TEMP 36.7; O2SAT 100
--- NOTE | 2025-09-14 15:46 | PC.NURSE ---
Patient given incentive spirometer Education given on how to use spirometer Patient verbally acknowledging use of IS Patient discharged
== END 2025-09-14 15:45 | disposition home or self-care (01) ==
PROVIDERS: Physician Assistant Medical; Emergency Provider Emergency Medicine Emergency Medical Services; PCP Internal Medicine Geriatric Medicine
DX: S20.211A Contusion of right front wall of thorax, initial encounter (principal); R51.9 Headache, unspecified; M54.2 Cervicalgia; R07.89 Other chest pain; R10.21 Pelvic and perineal pain right side; V29.99XA Rider (driver) (passenger) of other motorcycle injured in unspecified traffic accident, initial encounter; Y93.9 Activity, unspecified; Y92.410 Unspecified street and highway as the place of occurrence of the external cause; Y99.8 Other external cause status; Z79.899 Other long term (current) drug therapy; Z87.891 Personal history of nicotine dependence
CPT/HCPCS: 36415; 70450; 71260; 72125; 74177; 80053; 85025; 96365; 99285; J0131; Q9967

== ENCOUNTER → 2025-09-14 11:36 | Outpatient (BNV) | payer MEDICARE, MEDICAID, SELFPAY | PROVIDERS: PCP Internal Medicine Geriatric Medicine; Visit Provider Radiology Diagnostic Radiology | DX: R10.9 Unspecified abdominal pain (principal); S09.90XA Unspecified injury of head, initial encounter; Z04.3 Encounter for examination and observation following other accident | CPT/HCPCS: 70450; 71260; 72125; 74177 ==